=== PATIENT | female | born 1950 | race Caucasian/White ===

== ENCOUNTER 2018-10-01 15:47 | Emergency (ER) | payer MEDICARE, SELFPAY ==
[2018-10-01 15:47] VITALS: PULSE 99; RESP 17; TEMP 36.7; O2SAT 95; BMI 40.0
--- NOTE | 2018-10-01 16:11 | ED.RN ---
PT GIVEN A COUPLE WARM BLANKET AND IS RESTING COMFORTABLY. CALL LIGHT IS IN REACH.
--- NOTE | 2018-10-01 16:12 | RAD_ITS ---
STUDY: X-RAY - RIGHT SHOULDER REASON FOR EXAM: Female, 67 years old. Right lateral shoulder pain 2 days after fall. TECHNIQUE: 3 view(s) of the shoulder on 4 films. COMPARISON: None. FINDINGS: Normal glenohumeral articulation. There is mild degenerative arthrosis of the acromioclavicular joint without inferior osseous spur formation. Normal acromion. Normal humeral head and visualized proximal humerus. The soft tissue structures are unremarkable. There is no demonstrated fracture. Normal visualized pulmonary apex. RAD/Shoulder min 2 Views IMPRESSION: No fracture of the right shoulder. Electronically Signed: Lukas French MD at 17:23 EST , Service support ,
--- NOTE | 2018-10-01 16:17 | ED.VISSUMM ---
- ER Visit Summary Date of Service: 10/01/18 Chief Complaint: Fall History of Present Illness: The patient is a 67 F who states that on Thursday (post trauma day 3) she tripped on her feet causing contusion to the anterior left knee and striking her right shoulder against a coffee table. Since that time she has been able to ambulate. She states she has a limp however. She notes pain at the AC joint right shoulder with painful range of motion. No head injury. No other injuries noted by patient. Physical Examination: Afebrile vital signs are stable Gen: Well-nourished well-developed Head: Normocephalic atraumatic Eyes: Perrl EOMI ENT: TMs clear no rhinorrhea moist mucous membranes Neck: Supple no lymphadenopathy no JVD nontender CVS: Regular rate rhythm no murmurs normal S1-S2 Respiratory: No distress clear to auscultation bilaterally chest nontender Abdomen: Soft nontender nondistended normal bowel sounds no masses Back: Nontender Extremity: Left knee shows contusion in the infrapatellar region. There is no effusion. Ligaments are stable. Right shoulder is tender to palpation at the AC joint and the subacromial space. She does have full range of motion though it is painful. Skin: Normal color no rash Neuro: alert orientated ?3 CN II-XII intact normal strength sensation Psych: Normal affect normal mood Test Results: Shoulder and knee films were obtained. Shoulder films were negative for fracture. Left knee films were read as nondisplaced fracture of the patella. Emergency Department Course and Treatment: Reexamination of the left knee the patient does not have any tenderness of the patella. It is inferior where she hurts. Prudence would suggest that we place her in a knee immobilizer and repeat x-rays in 10-14 days. I will write for a few [place] as the patient is tried Tylenol and Motrin without help. Impression: 1. Right shoulder sprain 2. Left knee contusion 3. Possible left patellar fracture This note was generated with [employer] dictation software. It may contain incorrect words, spelling, and punctuation that were not noted in review of the chart prior to signing ED Disposition - Plan for ED Patient: Disposition: Home or Assisted Living Chief Complaint: Fall Prescriptions: Hydrocodone Bitart/Apap 5-325 [[place] 5MG-325MG] 1 tab PO Q6H PRN PRN 3 Days #10 tab PRN Reason: Pain Referrals: Andrae Concepcion MD [STAFF PHYSICIAN] - (call to arrange follow up)
--- NOTE | 2018-10-01 16:20 | RAD_ITS ---
STUDY: X-RAY - LEFT KNEE REASON FOR EXAM: Female, 67 years old. Pain, recent fall TECHNIQUE: Four view(s) of the knee were obtained. COMPARISON: None. FINDINGS: The distal femur is unremarkable. There are small osteophytes on the tibial plateau. There is mild narrowing of the medial femorotibial compartment. Normal lateral femorotibial compartment. There is chondrocalcinosis in both femorotibial compartments. There is cortical disruption through the patella seen on the sunrise view. There is no fullness above the patella. There is minimal soft tissue swelling anteriorly. RAD/Knee 4 or More Views IMPRESSION: There is an acute fracture in the patella without displacement. There is anterior soft tissue swelling. There is no obvious joint effusion although the lateral view is suboptimal in positioning. There are mild degenerative changes scattered in the left knee. Electronically Signed: Liv Mooney MD at 17:28 EST Tel Direct: [phone], Service support ,
[2018-10-01 18:05] VITALS: BP 149/76; PULSE 83; RESP 14; O2SAT 99
--- OUTSIDE RECORDS SUMMARY | 2019-01-05 07:13 | XMS RPT_ITS ---
:1950 Author Organization OHIP Care Team Providers Name Role Phone MARCELA MORROW Attending Unavailable NANCY MADISON MD, JR. Primary Care Unavailable MEGHAN ROSADO., DR. CALIX Attending Unavailable NANCY MADISON MD, JR. Primary Care Unavailable NANCY MADISON MD, JR. Attending Unavailable NANCY MADISON MD, JR. Primary Care Unavailable ALDO GALAVIZ MD Attending Unavailable NANCY MADISON MD, JR. Primary Care Unavailable DR. GEORGE ESCOBAR DO Attending Unavailable NANCY MADISON MD, JR. Primary Care Unavailable MYRON KOENIG Attending Unavailable MARIA T REED Referring Unavailable MARIA T REED Admitting Unavailable MARIA T REED Attending Unavailable NANCY MADISON JR Referring Unavailable IAIN CLIFTON Referring Unavailable IAIN CLIFTON Referring Unavailable JOSH WILLIS Referring Unavailable MASCI, IAIN A Referring Unavailable KAYLA HENRY (RD) Attending Unavailable SCOUT BELL Referring Unavailable ARABELLA, SCOUT Judge Referring Unavailable JOSH WILLIS Attending Unavailable SCOUT BELL Referring Unavailable MASCI, IAIN A Referring Unavailable MASCI, IAIN A Referring Unavailable REED, MARIA T Zimmerman Attending Unavailable REED, MARIA T Zimmerman Referring Unavailable MASCI, IAIN A Referring Unavailable MASCI, IAIN A Referring Unavailable REED, MARIA T Zimmerman Referring Unavailable REED, MARIA T Zimmerman Referring Unavailable REED, MARIA T Zimmerman Referring Unavailable REED, MARIA T Zimmerman Referring Unavailable MIKAL, MARIA T Zimmerman Referring Unavailable MIKAL, MARIA T Zimmerman Attending Unavailable NANCY MADISNO JR Referring Unavailable MASCI, IAIN Jesus Referring Unavailable MASCI, IAIN A Referring Unavailable CETIN, JOSH Turner Referring Unavailable LAZARO, JOSH Turner Referring Unavailable VIDHYA MARS Attending Unavailable SCOUT BELL Referring Unavailable ETIENNE, IAIN Lee Referring Unavailable Fantasma Wright Attending Unavailable Nancy Madison Jr. Primary Care Unavailable PROBLEMS PROBLEMS DATE TYPE CONDITION / CODE ATTENDING STATUS SOURCE 10/21/2018 Active Unknown / NA Active [place] UNK(Unknown) [facility] [place] Repository 10/01/2018 Unknown S82.002A - Fantasma Wright Active [place] Unspecified fracture Community of left patella, Hospital initial encounter Repository for closed fracture / S82.002A(ICD-10) 07/08/2018 Active Obesity, unspecified MARIA T REED [facility] / E66.9(ICD-10) J [facility] [place] Repository 04/30/2018 Active Diaphragmatic hernia MARIA T REED Active [place] without obstruction J [facility] Main or gangrene / [place] K44.9(ICD-10) Repository 05/19/2018 Active Other acute MARIA T REED Active [place] postprocedural pain J [facility] Main / G89.18(ICD-10) [place] Repository 05/19/2018 Active Unspecified fall, MARIA T REED [facility] initial encounter / J [facility] W19.XXXA(ICD-10) [place] Repository 05/19/2018 Active Dizziness and MARIA T REED Active [place] giddiness / J [facility] Main R42(ICD-10) [place] Repository 02/04/2018 Active Vitamin D NA [facility] deficiency, [facility] Main unspecified / [place] E55.9(ICD-10) Repository 05/17/2018 Active Iron deficiency Active [place] 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) [place] / D50.0(ICD-10) Repository 05/17/2018 Active Encounter for other NA Active [place] preprocedural Clinic Main examination / [place] Z01.818(ICD-10) Repository 04/22/2018 Active Morbid (severe) MARIA T REED Active [place] obesity due to J Clinic Main excess calories / [place] E66.01(ICD-10) Repository 02/29/2016 Active Other megaloblastic NA Active [place] anemias, not Clinic Main elsewhere classified [place] / D53.1(ICD-10) Repository 02/29/2016 Active 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, Clinic Main unspecified / [place] K90.9(ICD-10) Repository PROCEDURES PROCEDURES No Procedure Records FoundRESULTS RESULTS EMERGENCY DEPARTMENT Observed: 10/01/2018 Status: F Source: [place] SUMMARY 10:39 PM [facility] REPOSITORY [facility] Medical Records Department [address] [place] [address] Emergency Department Summary 10/01/18 1617 MR#: [id number] Acct: [id number] Name: NOREEN INGRAM Rep #: [id number] : 1950 67 From: Fantasma Wright DO PCP: Nancy Madison Jr., MD Status: DEP ER - ER Visit Summary Date of Service: 10/01/18 Chief Complaint: Fall History of Present Illness: The patient is a 67 F who states that on Thursday (post trauma day 3) she tripped on her feet causing contusion to the anterior left knee and striking her right shoulder against a coffee table. Since that time she has been able to ambulate. She states she has a limp however. She notes pain at the AC joint right shoulder with painful range of motion. No head injury. No other injuries noted by patient. Physical Examination: Afebrile vital signs are stable Gen: Well-nourished well-developed Head: Normocephalic atraumatic Eyes: Perrl EOMI ENT: TMs clear no rhinorrhea moist mucous membranes Neck: Supple no lymphadenopathy no JVD nontender CVS: Regular rate rhythm no murmurs normal S1-S2 Respiratory: No distress clear to auscultation bilaterally chest nontender Abdomen: Soft nontender nondistended normal bowel sounds no masses Back: Nontender Extremity: Left knee shows contusion in the infrapatellar region. There is no effusion. Ligaments are stable. Right shoulder is tender to palpation at the AC joint and the subacromial space. She does have full range of motion though it is painful. Skin: Normal color no rash Neuro: alert orientated 3 CN II-XII intact normal strength sensation Psych: Normal affect normal mood Test Results: Shoulder and knee films were obtained. Shoulder films were negative for fracture. Left knee films were read as nondisplaced fracture of the patella. Emergency Department Course and Treatment: Reexamination of the left knee the patient does not have any tenderness of the patella. It is inferior where she hurts. Prudence would suggest that we place her in a knee immobilizer and repeat x-rays in 10-14 days. I will write for a few Moclips as the patient is tried Tylenol and Motrin without help. Impression: 1. Right shoulder sprain 2. Left knee contusion 3. Possible left patellar fracture This note was generated with Harir dictation software. It may contain incorrect words, spelling, and punctuation that were not noted in review of the chart prior to signing ED Disposition - Plan for ED Patient: Disposition: Home or Assisted Living Chief Complaint: Fall Prescriptions: Hydrocodone Bitart/Apap 5-325 [Moclips 5MG-325MG] 1 tab PO Q6H PRN PRN 3 Days #10 tab PRN Reason: Pain Referrals: Andrae Concepcion MD [STAFF PHYSICIAN] - (call to arrange follow up) What to do if you have Problems For any increased pain, shortness of breath, bleeding, nausea or vomiting, chest pain, or any unexpected problems, contact your Primary Care Provider. Call [facility] ([phone]) or report to the closest Emergency Room. Call 911 if necessary. 10/01/18 [id number] <Electronically signed by Fantasma Wright DO> Date Fantasma Wright DO Cosigner Signature (If Indicated): Date CC: Nancy Madison Jr., MD SHOULDER MIN 2 VIEWS Observed: 10/01/2018 Status: F Source: [place] 4:12 PM [facility] REPOSITORY [facility] Imaging Services [address] [place] [address] Shoulder min 2 Views MR#: [id number] Acct: [id number] Name: NOREEN INGRAM Rep #: [id number] : 1950 F 67 From: Moe French MD PCP: Nancy Madison Jr., MD Status: REG ER Study: Shoulder min 2 Views Date of Exam: 10/01/18 Exam# [id number] Ordering Dr: Fantasma Wright DO STUDY: X-RAY - RIGHT SHOULDER REASON FOR EXAM: Female, 67 years old. Right lateral shoulder pain 2 days after fall. TECHNIQUE: 3 view(s) of the shoulder on 4 films. COMPARISON: None. FINDINGS: Normal glenohumeral articulation. There is mild degenerative arthrosis of the acromioclavicular joint without inferior osseous spur formation. Normal acromion. Normal humeral head and visualized proximal humerus. The soft tissue structures are unremarkable. There is no demonstrated fracture. Normal visualized pulmonary apex. RAD/Shoulder min 2 Views IMPRESSION: No fracture of the right shoulder. Electronically Signed: Lukas French MD at 17:23 EST , Service support , CC: Nancy Madison Jr., MD; Fantasma Wright DO Janitorial Services Supervisor: Signed KNEE 4 OR MORE Observed: 10/01/2018 Status: F Source: [place] VIEWS 4:12 PM [facility] HOSPITAL REPOSITORY [facility] Imaging Services [address] [place] [address] Knee 4 or More Views MR#: [id number] Acct: [id number] Name: NOREEN INGRAM Rep #: [id number] : 1950 F 67 From: Liv Mooney MD PCP: Nancy Madison Jr., MD Status: REG ER Study: Knee 4 or More Views Date of Exam: 10/01/18 Exam# [id number] Ordering Dr: Fantasma Wright DO STUDY: X-RAY - LEFT KNEE REASON FOR EXAM: Female, 67 years old. Pain, recent fall TECHNIQUE: Four view(s) of the knee were obtained. COMPARISON: None. FINDINGS: The distal femur is unremarkable. There are small osteophytes on the tibial plateau. There is mild narrowing of the medial femorotibial compartment. Normal lateral femorotibial compartment. There is chondrocalcinosis in both femorotibial compartments. There is cortical disruption through the patella seen on the sunrise view. There is no fullness above the patella. There is minimal soft tissue swelling anteriorly. RAD/Knee 4 or More Views IMPRESSION: There is an acute fracture in the patella without displacement. There is anterior soft tissue swelling. There is no obvious joint effusion although the lateral view is suboptimal in positioning. There are mild degenerative changes scattered in the left knee. Electronically Signed: Liv Mooney MD at 17:28 EST Tel Direct: [phone], Service support , CC: Nancy Madison Jr., MD; Fantasma Wright DO Janitorial Services Supervisor: Signed CBC Collected: 07/26/2018 Status: F Source: [facility] 2:28 PM [facility] EMERGENCY DEPARTMENT REPOSITORY TYPE CODE TESTS RESULT OUT OF REFERENCE UNITS RANGE LAB WBC(LOINC) 4.60-10.80 10 3/mcL WBC 5.90 LAB RBCCT(LOINC 4.20-5.40 10 6/mcL ) Low RBC 3.55 LAB HGB(LOINC) 12.0-16.0 G/dL Hgb 12.5 LAB HCT(LOINC) 37.0-47.0 % Low Hct 36.5 LAB MCV(LOINC) 80.0-94.0 fL High MCV 102.8 LAB MCH(LOINC) 27.0-31.2 pg High MCH 35.2 LAB MCHC(LOINC) 33.0-37.0 G/dL MCHC 34.2 LAB RDW(LOINC) 11.5-14.5 % RDW 12.7 LAB PLT(LOINC) 130-400 10 3/mcL Platelet 256 LAB MPV(LOINC) 7.4-10.4 fL Low MPV 7.3 Performed By: #### CBC, ADIFF, ANEU #### [place] [id number] #### BMP, TROP, GFR #### [address] [address] .AUTO DIFF Collected: 07/26/2018 Status: F Source: [facility] 2:28 PM [facility] REPOSITORY TYPE CODE TESTS RESULT OUT OF REFERENCE UNITS RANGE LAB NICOLAS(LOINC) 37.0-80.0 % Neutrophil % 71.5 LAB LYM(LOINC) 10.0-50.0 % Lymphocyte % 15.6 LAB MON(LOINC) 1.7-13.0 % Monocyte % 8.8 LAB EO(LOINC) 0.0-7.0 % Eosinophil % 3.3 LAB BAS(LOINC) 0.0-2.5 % Basophil % 0.8 LAB ABLYM(LOIN 0.77-3.85 10 3/mcL C) Lymphocyte, 0.90 Absolute LAB LEANNE(LOINC 0.15-1.00 10 3/mcL ) Monocyte, 0.50 Absolute LAB AEOS(LOINC 0.00-0.40 10 3/mcL ) Eosinophil, 0.20 Absolute LAB ABAS(LOINC 0.00-0.19 10 3/mcL ) Basophil, 0.00 Absolute Performed By: #### CBC, ADIFF, ANEU #### [address] [address] #### BMP, TROP, GFR #### [address] [address] .NEUABS Collected: 07/26/2018 Status: F Source: [facility] 2:28 [facility] REPOSITORY TYPE CODE TESTS RESULT OUT OF REFERENCE UNITS RANGE LAB ANEU(LOINC) 2.85-6.16 10 3/mcL Neutrophil, 4.20 Absolute Performed By: #### CBC, ADIFF, ANEU #### [address] [address] #### BMP, TROP, GFR #### [place] [address] BMP Collected: 07/26/2018 Status: F Source: [facility] 2:28 [facility] REPOSITORY TYPE CODE TESTS RESULT OUT OF REFERENCE UNITS RANGE LAB GLU(LOINC) 80-115 mg/dL Glucose Level 97 LAB NA(LOINC) 136-145 mmol/L Sodium Level 142 LAB K(LOINC) 3.5-5.1 mmol/L Potassium Level 3.5 LAB CL(LOINC) 98-107 mmol/L Chloride High 108 LAB CO2(LOINC) 23-31 mmol/L CO2 23 LAB EBAL(LOINC mEq/L ) Electrolyte Balance 11.0 LAB BUN(LOINC) 7-18 mg/dL BUN High 20 LAB CRE(LOINC) 0.55-1.02 mg/dL Creatinine Lvl (s) 1.00 LAB BC(LOINC) 7-27 ratio BUN/Creatinine 20 Ratio LAB CA(LOINC) 8.4-10.2 mg/dL Calcium Lvl 9.2 Performed By: #### CBC, ADIFF, ANEU #### [address] [address] #### BMP, TROP, GFR #### [place] [address] TROP Collected: 07/26/2018 Status: F Source: [facility] 2:28 [facility] REPOSITORY TYPE CODE TESTS RESULT OUT OF REFERENCE UNITS RANGE LAB TROP(LOINC) 0.000-0.040 ng/mL Troponin <0.020 Result Comment: Troponin I reference range: 0.00-0.040 ng/mL Negative and non-diagnostic. >0.040 ng/mL Consistent with cardiac damage, increased clinical risk and possibility of myocardial infarction. Serial measurements, a rise & fall in test results, clinical history, appropriate symptoms and/or ECG changes may help assess possibility of IN. *Other non-acute coronary syndrome conditions such as CHF, myocarditis, pulmonary emboli, sepsis and cardiac surgery could result in myocardial damage and increased troponin levels. Performed By: #### DANTE TEMPLETON, ANEU #### [place] [id number] [place], [place] [address] #### BMP, TROP, GFR #### [place] [address] .GFR Collected: 07/26/2018 Status: F Source: [facility] 2:28 PM [facility] REPOSITORY TYPE CODE TESTS RESULT OUT OF REFERENCE UNITS RANGE LAB GFRAA(LOINC ml/min/1.73 ) sqm GFR 67 [place] Result Comment: GFR Population mean for , Non- Americans Ages 20-29 = 116 mL/min/1.73 sq.m. Ages 30-39 = 107 mL/min/1.73 sq.m. Ages 40-49 = 99 mL/min/1.73 sq.m. Ages 50-59 = 93 mL/min/1.73 sq.m. Ages 60-69 = 85 mL/min/1.73 sq.m. Ages 70+ = 75 mL/min/1.73 sq.m. Chronic Kidney Disease: Less than 60 mL/min/1.73 square meters End Stage Renal Disease: Less than 15 mL/min/1.73 square meters LAB GFRNO(LOINC) ml/min/1.73sqm GFR Non- 55 Result Comment: GFR Population mean for , Non- Americans Ages 20-29 = 116 mL/min/1.73 sq.m. Ages 30-39 = 107 mL/min/1.73 sq.m. Ages 40-49 = 99 mL/min/1.73 sq.m. Ages 50-59 = 93 mL/min/1.73 sq.m. Ages 60-69 = 85 mL/min/1.73 sq.m. Ages 70+ = 75 mL/min/1.73 sq.m. Chronic Kidney Disease: Less than 60 mL/min/1.73 square meters End Stage Renal Disease: Less than 15 mL/min/1.73 square meters Performed By: #### JARETH, ADSANDOR, ANEU #### [place] [id number] [place], [place] [address] #### BMP, TROP, GFR #### [facility] [address] [place] [address] TSH Collected: 07/26/2018 Status: F Source: [facility] 2:28 PM [facility] REPOSITORY TYPE CODE TESTS RESULT OUT OF RANGE REFERENCE UNITS LAB TSH(LOINC) 0.36-3.74 mcIU/mL TSH 1.76 Performed By: #### TSH #### [address] [address] PROGRESS Observed: 07/08/2018 Status: COMPLETED Source: [place] 11:13 AM [facility] REPOSITORY HNO ID: [id number] Author: Maria T Reed Service: (none) Author Type: Physician Type: Progress Notes Filed: 07/08/2018 1:22 PM Note Text: Patient returns s/p lap paraesophageal hernia repair and looks and feels great and is having no major issues. I'll see her back in one hear with her upper gi. CNOV Observed: 07/08/2018 Status: COMPLETED Source: [place] 11:00 AM [facility] REPOSITORY Office Visit (RAY) NOREEN INGRAM ([id number]) 1950 F [facility] Date Time Provider Department 07/08/18 11:00 AM MARIA T REED During your visit today, we recorded the following information about you: Annamaria Costa Ms 07/08/2018 1:22 PM Signed General Surgery Clinic Note Interval History: Ms. Ingram is a 67 yo F here today for a postoperative check after a Type 3 paraesophageal hernia repair on 05/19/[address] Maria T Reed. The repair involved an anterior gastropexy, no julee fundoplication due to her BMI of 38. Upper GI afterward showed no leak. She reports that she has been doing very well, no nausea/vomiting, no heartburn, no fevers or chills. Complaining of LUQ pain where the anterior gastropexy was done that goes up to 6/10 for which she takes tylenol. Also says that her usual diarrhea has been getting worse since the surgery, she has 3-4 reasonably sized watery or runny BM's per day. No hematochezia. Physical Exam: [facility] 08/26/2017 General: awake, alert in no acute distress CV: regular rate, normal S1 and S2, no murmurs rubs or gallops Respiratory: clear to auscultation bilaterally Abdomen: nondistended, soft, mildly tender without guarding in the epigastrium. 4 lap sites healing well, no other masses. Extremities: no cyanosis or clubbing Assessment/Plan: Ms. Ingram is doing well postoperatively. Her pain is within normal limits. She can follow-up with Dr. Reed in 1 year for another upper GI scan. She can also start eating solid foods and go back to her usual levels of activity. Annamaria Costa, MS4 10:54 AM 07/08/18 Maria T Reed MD 07/08/2018 1:22 PM Signed Patient returns s/p lap paraesophageal hernia repair and looks and feels great and is having no major issues. I'll see her back in one hear with her upper gi. Referring Provider: MARIA T REED [[id number]] Allergies As of Date: 07/08/2018 Noted Allergy Reaction MORPHINE 11/19/2015 14 - Other: See Comments Comments: Severe hypotension Date Reviewed: 07/01/2018 Reviewed by: Mackenzie Mosqueda (Ale) ALE Mcgill - Fully Assessed Primary Visit Diagnosis:Paraesophageal hernia [K44.9] Other Visit Diagnosis:Obesity, Class II, BMI 35-39.9 [E66.9] Prescriptions as of 07/08/2018 Sig: DOCUSATE SODIUM 100 MG CAPSULE Take 1 capsule by mouth twice* VITAMIN B-12 INJECTION by INJECTION(UNSPECIFIED PARE* CHOLECALCIFEROL (VITAMIN D3) * Take 1 capsule by mouth once * LEVOTHYROXINE 75 MCG TABLET Take 75 mcg by mouth daily be* FUROSEMIDE 20 MG TABLET Take 20 mg by mouth once antonietta* POTASSIUM CHLORIDE ER 10 MEQ * Take 10 mEq by mouth twice da* CLONAZEPAM 1 MG TABLET Take 1 tablet by mouth three * FLUTICASONE 100 MCG-SALMETERO* Inhale 1 Puff as instructed t* PAROXETINE 10 MG TABLET Take 1 tablet by mouth once d* OMEPRAZOLE 20 MG CAPSULE,RADHA* Take 20 mg by mouth once antonietta* MECLIZINE 25 MG TABLET Take 25 mg by mouth every 6 h* ALBUTEROL 90 MCG/ACTUATION AE* Inhale 1-2 Puffs as instructe* Problem List As Of Date 07/08/2018 Noted Resolved Anemia [D64.9] More... Shortness of breath [R06.02] INVALID FOR* More... KAY (iron deficiency anemia) [D50.9] INVALID FOR* Iron malabsorption [K90.9] INVALID FOR* Megaloblastic anemia due to vitamin B12 deficie*INVALID FOR* Paraesophageal hernia [K44.9] INVALID FOR* Mild persistent asthma without complication [J4*INVALID FOR* Hypothyroidism [E03.9] INVALID FOR* Vitamin D deficiency [E55.9] INVALID FOR* Obesity, Class III, BMI >= 40 [E66.01] INVALID FOR* Hiatal hernia [K44.9] INVALID FOR* Obesity, Class II, BMI 35-39.9 [E66.9] INVALID FOR* Encounter Status:Closed by MARIA T REED MD on 07/08/18 HISTORY PHYSICAL Observed: 07/08/2018 Status: COMPLETED Source: [place] 10:52 AM [facility] [place] REPOSITORY O ID: [id number] Author: Annamaria Costa Ms Service: (none) Author Type: (none) Type: HANDP Filed: 07/08/2018 1:22 PM Note Text: General Surgery Clinic Note Interval History: Ms. Ingram is a 67 yo F here today for a postoperative check after a Type 3 paraesophageal hernia repair on 05/19/[address] Maria T Reed. The repair involved an anterior gastropexy, no julee fundoplication due to her BMI of 38. Upper GI afterward showed no leak. She reports that she has been doing very well, no nausea/vomiting, no heartburn, no fevers or chills. Complaining of LUQ pain where the anterior gastropexy was done that goes up to 6/10 for which she takes tylenol. Also says that her usual diarrhea has been getting worse since the surgery, she has 3-4 reasonably sized watery or runny BM's per day. No hematochezia. Physical Exam: [facility] 08/26/2017 General: awake, alert in no acute distress CV: regular rate, normal S1 and S2, no murmurs rubs or gallops Respiratory: clear to auscultation bilaterally Abdomen: nondistended, soft, mildly tender without guarding in the epigastrium. 4 lap sites healing well, no other masses. Extremities: no cyanosis or clubbing Assessment/Plan: Ms. Ingram is doing well postoperatively. Her pain is within normal limits. She can follow-up with Dr. Reed in 1 year for another upper GI scan. She can also start eating solid foods and go back to her usual levels of activity. Annamaria Costa, MS4 10:54 AM 07/08/18 LIPID Collected: 07/02/2018 Status: F Source: [place] 1:27 PM [facility] EMERGENCY DEPARTMENT REPOSITORY TYPE CODE TESTS RESULT OUT OF REFERENCE UNITS RANGE LAB CHOL(LOINC 0-200 mg/dL ) Cholesterol 167 Result Comment: Cholesterol Reference Interval: Less than 200 Desirable 200-239 Borderline high risk 240 and above High risk LAB TRIG(LOINC) 0-150 mg/dL Triglycerides 88 Result Comment: Triglyceride Reference Interval: Less than 150 Normal 150-199 Borderline high risk 200-499 High risk 500 or higher Very high risk LAB HD(LOINC) 40-60 mg/dL HDL Cholesterol 48 LAB LDL(LOINC) 0-130 mg/dL LDL Cholesterol 101 Performed By: #### LIPID, TSH #### [place] [address] TSH Collected: 07/02/2018 Status: F Source: [place] 1:27 PM [facility] EMERGENCY DEPARTMENT REPOSITORY TYPE CODE TESTS RESULT OUT OF RANGE REFERENCE UNITS LAB TSH(LOINC) 0.36-3.74 mcIU/mL TSH 1.82 Performed By: #### LIPID, TSH #### [place] [address] XR SHOULDER MINIMUM 2 Observed: 06/26/2018 Status: F Source: [place] VIEWS RIGHT 5:01 PM [facility] EMERGENCY DEPARTMENT REPOSITORY ORIGINAL XR SHOULDER MINIMUM 2 VIEWS RIGHT CLINICAL STATEMENT: pain/fall one month ago COMPARISON: None FINDINGS: No fracture or dislocation is identified. The included thoracic structures are normal. The acromioclavicular joint is normal. IMPRESSION: No acute fracture or dislocation. I have personally reviewed the images of this examination and agree with the resident's findings and interpretation. Interpreted By: Tommy Rivera DO Preliminary Report By: Francesca Borges MD Electronically Signed By: Tommy Rivera DO Dictated Date: 06/26/2018 5:14:20 PM Prelim Date: 06/26/2018 5:14:56 PM Sign Date: 06/26/2018 5:35:11 PM CNDS Observed: 05/23/2018 Status: COMPLETED Source: [place] 9:09 AM [facility] REPOSITORY O ID: [id number] Author: Jesica Stevenson MD Service: General Surgery Author Type: Resident Type: Discharge Summaries Filed: 05/24/2018 5:49 AM Note Text: DISCHARGE SUMMARY PATIENT NAME: Noreen Ingram ADMISSION DATE: 05/19/2018 DISCHARGE DATE: 05/23/2018 ATTENDING PHYSICIAN: Maria T Reed REASON FOR HOSPITALIZATION: paraesophageal hernia repair OPERATIONS DURING HOSPITALIZATION: Laparoscopic paraesophageal hernia repair and gastropexy PROCEDURES DURING HOSPITALIZATION: general anesthesia, endotracheal intubation, UGI HOSPITAL COURSE: 66 year old female with morbid obesity Body mass index is 40.03 kg/m?.?(previous BMI 51), HTN, hypothyroidism, asthma and a large type 3 paraesophageal hernia who underwent laparoscopic para esophageal hernia repair and gastropexy, tolerated the procedure well and was transferred to [facility] afterwards. On POD1 underwent UGI which showed no leak. Patient was started on CLD and advanced as tolerated. Once pain was controlled and was tolerating diet was deemed fit for discharge LABS AND PROCEDURES PENDING AT DISCHARGE: No pending results. CONSULTING TEAMS DURING HOSPITALIZATION: None PATIENT CONDITION AT DISCHARGE: Stable DISCHARGE DISPOSITION: Home/Self Care BP 135/64 Pulse 86 Temp 36.8 ?C (98.2 ?F) (Oral) Resp 20 Ht 160 cm (5' 3) Wt 103.5 kg (228 lb 2.8 oz) LMP 08/26/2017 SpO2 92% BMI 40.42 kg/m? ? GENERAL/NEURO: Awake, Alert, no distress CARDIORESP: Non-labored breathing on RA, hemodynamically stable ABDOMEN: Soft, obese, minimally tender, non distended INCISIONS: clean/dry/intact INFORMATION PROVIDED TO PATIENT: A copy of discharge instructions was given to the patient DISCHARGE MEDICATION: Current Discharge Medication List START taking these medications oxyCODONE IR (ROXICODONE) 5 mg Take 5 mg by mouth every 8 hours as needed for Pain. Earliest Fill Date: 05/23/18 Qty: 30 tablet Refills: 0 Associated Diagnoses:Postoperative pain simethicone, chewable (MYLICON) 80 mg Take 80 mg by mouth every 6 hours as needed. Qty: 40 tablet Refills: 1 metoclopramide HCl (REGLAN) 10 mg Take 10 mg by mouth before meals and at bedtime. Qty: 120 tablet Refills: 1 docusate sodium (COLACE) 100 mg Take 100 mg by mouth twice daily. CONTINUE these medications which have CHANGED acetaminophen (TYLENOL) 1,000 mg Take 1,000 mg by mouth every 8 hours as needed. CONTINUE these medications which have NOT CHANGED cyanocobalamin, vitamin B-12, (VITAMIN B-12 INJECTION) by INJECTION(UNSPECIFIED PARENTERAL ROUTES) route q 4 WEEKS. cholecalciferol (Vitamin D3) (VITAMIN D3) 50,000 Units Take 50,000 Units by mouth once each week. Qty: 12 capsule Refills: 1 levothyroxine (SYNTHROID) 75 mcg Take 75 mcg by mouth daily before breakfast. furosemide (LASIX) 20 mg Take 20 mg by mouth once daily. Associated Diagnoses:Anemia due to other cause potassium chloride (K-TAB) 10 mEq Take 10 mEq by mouth twice daily. Associated Diagnoses:Anemia due to other cause clonazePAM (KlonoPIN) 1 mg Take 1 mg by mouth three times daily as needed (anxiety). Qty: 30 tablet Refills: 3 fluticasone-salmeterol (ADVAIR) 1 Puff Inhale 1 Puff as instructed twice daily. Qty: 3 Inhaler Refills: 3 PARoxetine (PAXIL) 10 mg Take 10 mg by mouth once daily. Qty: 30 tablet Refills: 3 omeprazole (PriLOSEC) 20 mg Take 20 mg by mouth once daily. Associated Diagnoses:Anemia meclizine (ANTIVERT) 25 mg Take 25 mg by mouth every 6 hours as needed. Associated Diagnoses:Anemia albuterol (PROVENTIL) 1-2 Puffs Inhale 1-2 Puffs as instructed four times daily as needed (Wheezing and shortness of Breath). Qty: 1 Inhaler Refills: 0 FUTURE APPOINTMENTS: Appointments for Next 60 Days Date Time Provider Location Dept Phone 06/03/2018 2:00 PM [facility] [phone] 07/01/2018 2:00 PM [facility] [phone] Reed in 2-3 weeks SIGNATURE: Jesica Stevenson MD PATIENT NAME: Noreen Ingram DATE: May 23, 2018 TIME: 9:09 AM PAGER/CONTACT #: [phone] PROGRESS Observed: 05/23/2018 Status: COMPLETED Source: [place] 6:39 AM [facility] [place] REPOSITORY HNO ID: [id number] Author: Jesica (Ernestina) MD Elva Service: General Surgery Author Type: Resident Type: Progress Notes Filed: 05/23/2018 7:09 AM Note Text: SURGERY INPATIENT PROGRESS NOTE Patient Name: Noreen Ingram Assessment and Plan: 66 year old female with morbid obesity Body mass index is 40.03 kg/m?. (previous BMI 51), HTN, hypothyroidism, asthma and a large type 3 paraesophageal hernia now POD 4 s/p laparoscopic para esophageal hernia repair and gastropexy Neuro/Pain: continue current regimen Cardioresp: Incentive spirometry. Duonebs q4h. Reinforce spirometry + aggressive BPH FEN/GI: HLIVF. Replete Lytes. Diet: GIS. +ROBF. Reglan+Simethicone Renal: Strict I/Os. Prophylaxis: IPCs, lovenox Dispo: RNF. Possible DC home today Plan discussed with Surgery Staff Jesica Stevenson [place] PGY1 [place]. [phone] Subjective: No issues Tolerating GIS +BM and flatus Pain well managed Physical Exam: BP 135/64 Pulse 86 Temp 36.8 ?C (98.2 ?F) (Oral) Resp 20 Ht 160 cm (5' 3) Wt 103.5 kg (228 lb 2.8 oz) LMP 08/26/2017 SpO2 92% BMI 40.42 kg/m? GENERAL/NEURO: Awake, Alert, no distress CARDIORESP: Non-labored breathing on RA, hemodynamically stable ABDOMEN: Soft, obese, minimally tender, non distended INCISIONS: clean/dry/intact Labs: CBC, BMP, MG, PHOS Recent Labs 05/22/18 2250 05/21/18 2338 05/20/18 2352 WBC 5.77 5.53 5.62 HB 10.7* 9.9* 10.4* HCT 33.1* 31.0* 32.4* PLT 189 143* 137* NA 142 143 142 K 4.2 4.1 3.7 CHLOR 102 106* 103 CO2 31* 30 26 BUN 7 9 11 CREAT 1.00* 0.93 0.95 GLUC 83 79 89 CA 9.0 8.5 8.7 Liver Function, Amylase, AND Lipase Recent Labs 05/17/18 1010 01/26/18 1422 02/28/16 1133 TPROT 7.4 7.8 6.5 6.8 ALB 4.3 4.6 3.6 ALT 21 17 13 AST 26 21 25 ALKPHOS 35 43 46 TBILI 0.4 0.5 0.2 Coags Recent Labs 05/17/18 1010 11/16/15 0534 APTT 25.5 Unable to assay. Clotted specimen. INR 1.1 Unable to assay. Clotted specimen. Intake and Output: Date 05/22/18699 - 05/23/1865805/23/18699 - 05/24/18 0659 Shift 2729-6124 7802-6738 6031-2549 24 Hour Total 5336-2535 6485-0438 9519-3259 24 Hour Total I N T A K E PO 720 720 PO 720 720 Shift Total 720 720 O U T P U T Urine 500 626 235 3360 Void (ml) 500 990 640 4278 Emesis 0 0 Emesis (ml) 0 0 # of BMs Stool Incontinence 1 x 1 x Number of BMs 3 x 1 x 0 x 4 x Shift Total 500 618 082 2695 Weight (kg) 103.5 103.5 103.5 103.5 103.5 103.5 103.5 103.5 Current Medications: Current hospital medications: oxyCODONE IR 5-10 mg tab(s) (ROXICODONE) 5-10 mg ORAL q 4 H PRN ipratropium-albuterol 3 mL nebulizer solution (DUONEB) 3 mL INHALATION q 4 H PRN metoclopramide HCl 10 mg tab(s) (REGLAN) 10 mg ORAL AC and HS 0.9% NaCl 2-10 mL 2-10 mL INTRAVENOUS q 12 H simethicone, chewable 80 mg tab(s) (MYLICON) 80 mg ORAL PC and HS clonazePAM 1 mg tab(s) (KlonoPIN) 1 mg ORAL TID PRN PARoxetine 10 mg tab(s) (PAXIL) 10 mg ORAL DAILY levothyroxine 75 mcg tab(s) (SYNTHROID) 75 mcg ORAL DAILY (6 AM) ipratropium-albuterol 3 mL nebulizer solution (DUONEB) 3 mL INHALATION q 4 H while awake ondansetron (PF) 4 mg injection (ZOFRAN) 4 mg INTRAVENOUS q 6 H docusate sodium 100 mg cap(s) (COLACE) 100 mg ORAL BID magnesium hydroxide 400 mg/5 mL 30 mL (MOM) 30 mL ORAL BID acetaminophen 1,000 mg tab(s) (TYLENOL) 1,000 mg ORAL q 6 HR gabapentin 300 mg cap(s) (NEURONTIN) 300 mg ORAL q 12 H enoxaparin 40 mg injection (LOVENOX) 40 mg SUBCUTANEOUS DAILY pantoprazole DR 20 mg tab(s) (PROTONIX) 20 mg ORAL DAILY (6 AM) *A review of daily goals, interventions, and plan of care with the multidisciplinary team and patient has been conducted. The patient?s concerns have been addressed and he/she agrees to proceed with today?s plan of care. CBC AND DIFFERENTIAL Collected: 05/22/2018 Status: F Source: [place] 10:50 PM [facility] REPOSITORY TYPE CODE TESTS RESULT OUT OF REFERENCE UNITS RANGE LAB WBC 3.70-11.00 k/uL WBC 5.77 LAB RBC 3.90-5.20 m/uL Low RBC 3.01 LAB HGB 11.5-15.5 g/dL Low Hemoglobin 10.7 LAB HCT 36.0-46.0 % Low Hematocrit 33.1 LAB MCV 80.0-100.0 fL MCV High 110.0 LAB MCH 26.0-34.0 pG MCH High 35.5 LAB MCHC 30.5-36.0 g/dL MCHC 32.3 LAB RDWCV 11.5-15.0 % RDW-CV 13.2 LAB PLTCT 150-400 k/uL Platelet Count 189 LAB MPV 9.0-12.7 fL MPV 9.7 LAB ANEUT % Neut% 67.6 LAB AANEUT 1.45-7.50 k/uL Abs Neut 3.88 LAB ALYMP % Lymph% 17.7 LAB AALYMP 1.00-4.00 k/uL Abs Lymph 1.02 LAB AMONO % Clinton% 10.2 LAB AAMONO <0.87 k/uL Abs Clinton 0.59 LAB AEOS % Eosin% 4.0 LAB AAEOS <0.46 k/uL Abs Eosin 0.23 LAB ABASO % Baso% 0.5 LAB AABASO <0.11 k/uL Abs Baso 0.03 LAB AUNRBC 0 /100 WBC NRBCs 0.0 LAB ABNRBC <0.01 k/uL Absolute nRBC <0.01 LAB DTYP DTYPE Auto Diff Performed By: #### CBCDIF, BMP #### [facility] [address] [place], [place] [address] BASIC METABOLIC PANL Collected: 05/22/2018 Status: F Source: [place] 10:50 PM [facility] REPOSITORY TYPE CODE TESTS RESULT OUT OF REFERENCE UNITS RANGE LAB GLU 74-99 mg/dL Glucose 83 Result Comment: The [place] [employer] (ADA) provides guidance for cutoff values for fasting glucose and random glucose. The ADA defines fasting as no caloric intake for at least 8 hours. Fas ting plasma glucose results between 100 to 125 mg/dL indicate increased risk for diabetes (prediabetes). Fasting plasma glucose results greater than or equal to 126 mg/dL meet the criteria for diagnosis of diabetes. In the absence of unequivocal hyperglycemia, results should be confirmed by repeat testing. In a patient with classic symptoms of hyperglycemia or hyperglycemic crisis, random plasma glucose results greater than or equal to 200 mg/dL meet the criteria for diagnosis of diabetes. Reference: Standards of Medical Care in Diabetes 2016, [place] [employer]. Diabetes Care. 2016.39(Suppl 1). LAB BUN 7-21 mg/dL BUN 7 LAB CRET 0.58-0.96 mg/dL Creatinine High 1.00 LAB NA 136-144 mmol/L Sodium 142 LAB K 3.7-5.1 mmol/L Potassium 4.2 LAB CL 97-105 mmol/L Chloride 102 LAB CO2 22-30 mmol/L CO2 High 31 LAB AGAP 9-18 mmol/L Anion Gap 9 LAB CA 8.5-10.2 mg/dL Calcium, Total 9.0 LAB GFRAA eGFR- Amer. >60 LAB GFRNAA . eGFR-All Other Races 55 Result Comment: eGFR (Estimated GFR) Units of measure: mL/min/1.73 meters squared eGFR is derived from the reexpressed MDRD Study equation using the following parameters: serum creatinine, age, gender and race. The creatinine assay has been calibrated to be traceable to IDMS. An eGFR <60 mL/min/1.73m2 for >3 months is consistent with chronic kidney disease. Refer to KDOQI guidelines for clinical interpretation. In patients with unstable renal function, e.g. those with acute kidney injury, the eGFR may not accurately reflect actual GFR. Performed By: #### CBCDIF, BMP #### [facility] [address] [place] [address] THERAPY NT Observed: 05/22/2018 Status: COMPLETED Source: [place] 12:49 PM [facility] [place] REPOSITORY HNO ID: [id number] Author: Ila (Pt) MYKE Cali Service: Physical Therapy Author Type: Physical Therapist Type: Therapy (PT/OT/Speech/Resp) Filed: 05/22/2018 12:52 PM Note Text: Physical Therapy Evaluation SERVICE DATE: 05/22/2018 SERVICE TIME: 1152 to 1215 ROOM: [place] [address] Recommended Discharge Disposition: Home Anticipated Discharge Needs: Supervision at Home Supervision at Home due to: Other: See Comment (patient has a history of falls due to veritigo) Recommended Discharge Equipment: Wheeled Walker PT Recommendations to Nursing: Ambulate with device;With assist of 1 person Device: Wheeled Walker PT 6 Clicks Score: 23 Precautions/Activity Restrictions: Abdominal;Fall Risk ASSESSMENT : Patient presents s/p hernia repair. The patient has a history of falls due to a known history of vertigo. The patient is at her baseline with mobility and does not require physical assist. Recommend supervision as needed upon discharging home from her sister. No skilled PT needs at this time. May benefit from a rolling walker for longer distances. Patient Disposition at Start of Session: Supine in Bed Patient Disposition at End of Session: OOB in Chair;Call Thompson in Reach Tolerated Full Session Physical Therapy Problem List: Pain;Safety Deficits;Balance Impaired Patient /Caregiver Goals: Go Home Goals for Plan of Care: Transfer supine to/from sit with: Modified Independent Transfer sit to/from stand with: Modified Independent Ambulate with: Modified Independent Distance: 100 Device: Wheeled Walker PLAN: Treatment Frequency (times per week): Discontinue Therapy Services Reasons Therapy Services Discontinued: No skilled needs Plan of Care developed with: Patient TREATMENT INTERVENTIONS: Therapy Diagnosis: Reduced mobility-other Interventions Provided: Evaluation;Therapeutic Activity (36015) $ Evaluation-Low (59075) Billed Units: 1 unit Therapeutic Activity (17308) Treatment Minutes: 8 1 unit Skilled Intervention(s): Instructed patient in log roll technique Instruction in sit to and from stand technique with proper hand placement and body positioning at edge of bed/chair Patient educated on PT role during and post acute stay Patient educated on post op protocol/precautions Patient encouraged to sit up for meals and to ambulate with nursing as able Discussed discharge planning Safety for in bed and out of bed activity Total Timed Code Treatment Minutes: 8 Total Treatment Time (minutes): 23 FUNCTIONAL G CODE: PT 6 Clicks Score: 23 (05/22/18 1152) Mobility: Walking and Moving Around Current Status (G8978): CI (05/22/18 1152) Mobility: Walking and Moving Around Goal Status (G8979): CI (05/22/18 1152) Mobility: Walking and Moving Around Discharge Status (G8980): CI (05/22/18 1152) Based on clinical assessment and the score on the 6 Clicks Functional Assessment Tool, the G code and corresponding severity modifiers are documented above. SUBJECTIVE: Current Hospital Course: POD 3 s/p laparoscopic para esophageal hernia repair and gastropexy Reason for Physical Therapy Consult : safety assessment Relevant Past Medical History: hernia Patient Report: I can walk, I just need to take my time. Home Environment Patient Lives With: Self/Alone Assistance Available: maritime pilot (sister lives nearby) Entry To Home: Stairs;With Rail Number Of Stairs Into Home: 6 Number Of Stairs To Bed/Bath: 0 Equipment Owned: (none) Prior Functional Level: Within Functional Limits (works service parts coordinator. independent. drives) OBJECTIVE: CURRENT FUNCTIONAL STATUS: Current Functional Mobility Assist Level Additional Information Rolling Supervision Supine to Sit Verbal Cues Only Sit to Supine Scooting Sit to Stand Stand By Assistance Stand to Sit Stand By Assistance Bed to Chair Toilet/Commode Gait Stand By Assistance Gait Device: Wheeled Walker Gait Distance (feet): 100 Stairs Curb Step Car Transfer General Gait Deviations: Non-functional gait speed;Loss of Balance Balance: Static Standing;Dynamic Standing Static Standing Balance: Supervision Dynamic Standing Balance: Stand By Assistance Please see discipline specific clinical documentation flowsheet for complete details for this therapy evaluation/treatment. SIGNATURE: Ila Cali PT, DPT PATIENT NAME: Noreen Ingram DATE: May 22, 2018 TIME: 12:49 PM PROGRESS Observed: 05/22/2018 Status: COMPLETED Source: [place] 8:59 AM [facility] REPOSITORY HNO ID: [id number] Author: Renetta Zheng Service: General Surgery Author Type: Resident Type: Progress Notes Filed: 05/22/2018 9:00 AM Note Text: SURGERY INPATIENT PROGRESS NOTE Patient Name: Noreen Ingram Assessment and Plan: 66 year old female with morbid obesity Body mass index is 40.03 kg/m?. (previous BMI 51), HTN, hypothyroidism, asthma and a large type 3 paraesophageal hernia now POD 3 s/p laparoscopic para esophageal hernia repair and gastropexy Neuro/Pain: continue current regimen with QUALITY ASSURANCE SUPERVISOR BODY, Tylenol Cardioresp: Incentive spirometry. Duonebs q4h. Reinforce spirometry + aggressive BPH FEN/GI: IVF. Replete Lytes. Diet: Continue clears. +ROBF. Reglan+Simethicone Renal: Strict I/Os. Prophylaxis: IPCs, lovenox Dispo: RNF Plan discussed with Surgery Staff Renetta Zheng MD General Surgery Pager: [phone] May 22, 2018 8:59 AM Subjective: No issues Tolerating full liquids +BM and flatus Pain well managed Physical Exam: BP 114/58 Pulse 70 Temp 36.8 ?C (98.3 ?F) (Oral) Resp 18 Ht 160 cm (5' 3) Wt 103.5 kg (228 lb 2.8 oz) LMP 08/26/2017 SpO2 93% BMI 40.42 kg/m? GENERAL/NEURO: Awake, Alert, no distress CARDIORESP: Non-labored breathing on RA, hemodynamically stable ABDOMEN: Soft, obese, minimally tender, non distended INCISIONS: clean/dry/intact Labs: CBC, BMP, MG, PHOS Recent Labs 05/21/18 2338 05/20/18 2352 05/20/18 0147 WBC 5.53 5.62 9.55 HB 9.9* 10.4* 11.1* HCT 31.0* 32.4* 34.0* PLT 143* 137* 199 NA 143 142 141 K 4.1 3.7 4.3 CHLOR 106* 103 104 CO2 30 26 27 BUN 9 11 16 CREAT 0.93 0.95 0.94 GLUC 79 89 114* CA 8.5 8.7 8.6 Liver Function, Amylase, AND Lipase Recent Labs 05/17/18 1010 01/26/18 1422 02/28/16 1133 TPROT 7.4 7.8 6.5 6.8 ALB 4.3 4.6 3.6 ALT 21 17 13 AST 26 21 25 ALKPHOS 35 43 46 TBILI 0.4 0.5 0.2 Coags Recent Labs 05/17/18 1010 11/16/15 0534 APTT 25.5 Unable to assay. Clotted specimen. INR 1.1 Unable to assay. Clotted specimen. Intake and Output: Date 05/21/18699 - 05/22/18 0659 05/22/18699 - 05/23/18 0659 Shift 0090-8299 2430-9559 1102-6026 24 Hour Total 0193-2510 1565-9943 1089-2474 24 Hour Total I N T A K E PO 600 360 960 360 360 PO 600 360 960 360 360 IV 886 9528 982 5786 LR 886 5259 079 0922 Shift Total 1486 1718 630 6490 360 360 O U T P U T Urine 301 969 172 8146 200 200 Void (ml) 300 714 358 4003 200 200 Urine Not Saved 1 1 # of BMs Stool Incontinence 1 x 1 x 1 x 1 x Number of BMs 1 x 0 x 1 x 1 x 1 x Shift Total 301 392 632 8954 200 200 Weight (kg) 103.5 103.5 103.5 103.5 103.5 103.5 103.5 103.5 Current Medications: Current hospital medications: fentaNYL 50 mcg/mL 25 mcg injection (SUBLIMAZE) 25 mcg INTRAVENOUS q 2 H PRN ipratropium-albuterol 3 mL nebulizer solution (DUONEB) 3 mL INHALATION q 4 H PRN metoclopramide HCl 10 mg tab(s) (REGLAN) 10 mg ORAL AC and HS 0.9% NaCl 2-10 mL 2-10 mL INTRAVENOUS q 12 H simethicone, chewable 80 mg tab(s) (MYLICON) 80 mg ORAL PC and HS clonazePAM 1 mg tab(s) (KlonoPIN) 1 mg ORAL TID PRN PARoxetine 10 mg tab(s) (PAXIL) 10 mg ORAL DAILY levothyroxine 75 mcg tab(s) (SYNTHROID) 75 mcg ORAL DAILY (6 AM) ipratropium-albuterol 3 mL nebulizer solution (DUONEB) 3 mL INHALATION q 4 H while awake ondansetron (PF) 4 mg injection (ZOFRAN) 4 mg INTRAVENOUS q 6 H docusate sodium 100 mg cap(s) (COLACE) 100 mg ORAL BID magnesium hydroxide 400 mg/5 mL 30 mL (MOM) 30 mL ORAL BID acetaminophen 1,000 mg tab(s) (TYLENOL) 1,000 mg ORAL q 6 HR gabapentin 300 mg cap(s) (NEURONTIN) 300 mg ORAL q 12 H enoxaparin 40 mg injection (LOVENOX) 40 mg SUBCUTANEOUS DAILY pantoprazole DR 20 mg tab(s) (PROTONIX) 20 mg ORAL DAILY (6 AM) *A review of daily goals, interventions, and plan of care with the multidisciplinary team and patient has been conducted. The patient?s concerns have been addressed and he/she agrees to proceed with today?s plan of care. CBC AND DIFFERENTIAL Collected: 05/21/2018 Status: F Source: [place] 11:38 PM [facility] REPOSITORY TYPE CODE TESTS RESULT OUT OF REFERENCE UNITS RANGE LAB WBC 3.70-11.00 k/uL WBC 5.53 LAB RBC 3.90-5.20 m/uL Low RBC 2.82 LAB HGB 11.5-15.5 g/dL Low Hemoglobin 9.9 LAB HCT 36.0-46.0 % Low Hematocrit 31.0 LAB MCV 80.0-100.0 fL MCV High 109.9 LAB MCH 26.0-34.0 pG MCH High 35.1 LAB MCHC 30.5-36.0 g/dL MCHC 31.9 LAB RDWCV 11.5-15.0 % RDW-CV 13.2 LAB PLTCT 150-400 k/uL Low Platelet Count 143 LAB MPV 9.0-12.7 fL MPV 11.2 LAB ANEUT % Neut% 64.4 LAB AANEUT 1.45-7.50 k/uL Abs Neut 3.54 LAB ALYMP % Lymph% 21.0 LAB AALYMP 1.00-4.00 k/uL Abs Lymph 1.16 LAB AMONO % Clinton% 10.8 LAB AAMONO <0.87 k/uL Abs Clinton 0.60 LAB AEOS % Eosin% 3.3 LAB AAEOS <0.46 k/uL Abs Eosin 0.18 LAB ABASO % Baso% 0.5 LAB AABASO <0.11 k/uL Abs Baso 0.03 LAB AUNRBC 0 /100 WBC NRBCs 0.0 LAB ABNRBC <0.01 k/uL Absolute nRBC <0.01 LAB DTYP DTYPE Auto Diff Performed By: #### CBCDIF, BMP #### [facility] [address] [place], [place] [address] BASIC METABOLIC PANL Collected: 05/21/2018 Status: F Source: [place] 11:38 PM [facility] REPOSITORY TYPE CODE TESTS RESULT OUT OF REFERENCE UNITS RANGE LAB GLU 74-99 mg/dL Glucose 79 Result Comment: The [place] [employer] (ADA) provides guidance for cutoff values for fasting glucose and random glucose. The ADA defines fasting as no caloric intake for at least 8 hours. Fas ting plasma glucose results between 100 to 125 mg/dL indicate increased risk for diabetes (prediabetes). Fasting plasma glucose results greater than or equal to 126 mg/dL meet the criteria for diagnosis of diabetes. In the absence of unequivocal hyperglycemia, results should be confirmed by repeat testing. In a patient with classic symptoms of hyperglycemia or hyperglycemic crisis, random plasma glucose results greater than or equal to 200 mg/dL meet the criteria for diagnosis of diabetes. Reference: Standards of Medical Care in Diabetes 2016, [place] [employer]. Diabetes Care. 2016.39(Suppl 1). LAB BUN 7-21 mg/dL BUN 9 LAB CRET 0.58-0.96 mg/dL Creatinine 0.93 LAB NA 136-144 mmol/L Sodium 143 LAB K 3.7-5.1 mmol/L Potassium 4.1 LAB CL 97-105 mmol/L Chloride High 106 LAB CO2 22-30 mmol/L CO2 30 LAB AGAP 9-18 mmol/L Low Anion Gap 7 LAB CA 8.5-10.2 mg/dL Calcium, Total 8.5 LAB GFRAA eGFR- Amer. >60 LAB GFRNAA . eGFR-All Other Races 60 Result Comment: eGFR (Estimated GFR) Units of measure: mL/min/1.73 meters squared eGFR is derived from the reexpressed MDRD Study equation using the following parameters: serum creatinine, age, gender and race. The creatinine assay has been calibrated to be traceable to IDMS. An eGFR <60 mL/min/1.73m2 for >3 months is consistent with chronic kidney disease. Refer to KDOQI guidelines for clinical interpretation. In patients with unstable renal function, e.g. those with acute kidney injury, the eGFR may not accurately reflect actual GFR. Performed By: #### CBCDIF, BMP #### [facility] [address] [id number] PROGRESS Observed: 05/21/2018 Status: COMPLETED Source: [place] 7:23 AM [facility] [place] REPOSITORY HNO ID: [id number] Author: Renetta Zheng Service: General Surgery Author Type: Resident Type: Progress Notes Filed: 05/21/2018 7:24 AM Note Text: SURGERY INPATIENT PROGRESS NOTE Patient Name: Noreen Ingram Assessment and Plan: 66 year old female with morbid obesity Body mass index is 40.03 kg/m?. (previous BMI 51), HTN, hypothyroidism, asthma and a large type 3 paraesophageal hernia now POD 2 s/p laparoscopic para esophageal hernia repair and gastropexy Neuro/Pain: continue current regimen with QUALITY ASSURANCE SUPERVISOR BODY, Tylenol Cardioresp: Incentive spirometry. Duonebs q4h. FEN/GI: IVF. Replete Lytes. Diet: Continue clears. Awaiting ROBF Zofran PRN Renal: Strict I/Os. Heme: no indication for transfusion ID: no need Prophylaxis: IPCs, lovenox Dispo: RNF Plan to be discussed with Surgery Staff Renetta Zheng MD General Surgery Pager: [phone] May 21, 2018 7:23 AM Subjective: Interval Events: AMET overnight for fall without LOC. +dizziness. No flatus or BM Physical Exam: BP 111/55 Pulse 63 Temp 36.6 ?C (97.9 ?F) (Oral) Resp 16 Ht 160 cm (5' 3) Wt 103.5 kg (228 lb 2.8 oz) LMP 08/26/2017 SpO2 96% BMI 40.42 kg/m? GENERAL/NEURO: Awake, Alert, no distress CARDIORESP: Non-labored breathing on RA, hemodynamically stable ABDOMEN: Soft, obese, minimally tender, non distended INCISIONS: clean/dry/intact Labs: CBC, BMP, MG, PHOS Recent Labs 05/20/18 2352 05/20/18 0147 05/17/18 1010 WBC 5.62 9.55 6.24 HB 10.4* 11.1* 13.3 HCT 32.4* 34.0* 40.8 PLT 137* 199 233 NA 142 141 143 K 3.7 4.3 4.2 CHLOR 103 104 108* CO2 26 27 23 BUN 11 16 21 CREAT 0.95 0.94 1.11* GLUC 89 114* 90 CA 8.7 8.6 9.6 Liver Function, Amylase, AND Lipase Recent Labs 05/17/18 1010 01/26/18 1422 02/28/16 1133 TPROT 7.4 7.8 6.5 6.8 ALB 4.3 4.6 3.6 ALT 21 17 13 AST 26 21 25 ALKPHOS 35 43 46 TBILI 0.4 0.5 0.2 Coags Recent Labs 05/17/18 1010 11/16/15 0534 APTT 25.5 Unable to assay. Clotted specimen. INR 1.1 Unable to assay. Clotted specimen. Intake and Output: Date 05/20/18699 - 05/21/18 0659 05/21/18699 - 05/22/18 0659 Shift 2737-2853 9388-6962 3588-5813 24 Hour Total 8819-3056 5135-5117 2870-0332 24 Hour Total I N T A K E PO 240 120 100 460 PO 240 120 100 460 IV 976 1066 1051 3093 LR 976 1066 1051 3093 Shift Total 1216 1186 1151 3553 O U T P U T Urine 400 107 770 4994 Void (ml) 400 731 419 3362 Emesis 0 0 0 0 Emesis (ml) 0 0 0 0 # of BMs Number of BMs 0 x 0 x 0 x 0 x Shift Total 400 238 601 4397 Weight (kg) 103.5 103.5 103.5 103.5 103.5 103.5 103.5 103.5 Current Medications: Current hospital medications: ipratropium-albuterol 3 mL nebulizer solution (DUONEB) 3 mL INHALATION q 4 H PRN potassium chloride 20 mEq oral powder (KLOR-CON) 20 mEq ORAL ONCE metoclopramide HCl 10 mg injection (REGLAN) 10 mg INTRAVENOUS AC and HS simethicone, chewable 80 mg tab(s) (MYLICON) 80 mg ORAL PC and HS clonazePAM 1 mg tab(s) (KlonoPIN) 1 mg ORAL TID PRN PARoxetine 10 mg tab(s) (PAXIL) 10 mg ORAL DAILY levothyroxine 75 mcg tab(s) (SYNTHROID) 75 mcg ORAL DAILY (6 AM) ipratropium-albuterol 3 mL nebulizer solution (DUONEB) 3 mL INHALATION q 4 H while awake ondansetron (PF) 4 mg injection (ZOFRAN) 4 mg INTRAVENOUS q 6 H lactated ringers infusion 125 mL/hr INTRAVENOUS CONTINUOUS docusate sodium 100 mg cap(s) (COLACE) 100 mg ORAL BID magnesium hydroxide 400 mg/5 mL 30 mL (MOM) 30 mL ORAL BID acetaminophen 1,000 mg tab(s) (TYLENOL) 1,000 mg ORAL q 6 HR gabapentin 300 mg cap(s) (NEURONTIN) 300 mg ORAL q 12 H enoxaparin 40 mg injection (LOVENOX) 40 mg SUBCUTANEOUS DAILY fentaNYL QUALITY ASSURANCE SUPERVISOR BODY 20 mcg/mL in NaCl 0.9% 100 mL INTRAVENOUS CONTINUOUS fentaNYL 20 mcg/mL QUALITY ASSURANCE SUPERVISOR BODY CLINICIAN DOSE 25-50 mcg 25-50 mcg INTRAVENOUS q [address] 20 mg tab(s) (PROTONIX) 20 mg ORAL DAILY (6 AM) *A review of daily goals, interventions, and plan of care with the multidisciplinary team and patient has been conducted. The patient?s concerns have been addressed and he/she agrees to proceed with today?s plan of care. CBC AND DIFFERENTIAL Collected: 05/20/2018 Status: F Source: [place] 11:52 PM [facility] REPOSITORY TYPE CODE TESTS RESULT OUT OF REFERENCE UNITS RANGE LAB WBC 3.70-11.00 k/uL WBC 5.62 LAB RBC 3.90-5.20 m/uL Low RBC 3.01 LAB HGB 11.5-15.5 g/dL Low Hemoglobin 10.4 LAB HCT 36.0-46.0 % Low Hematocrit 32.4 LAB MCV 80.0-100.0 fL MCV High 107.6 LAB MCH 26.0-34.0 pG MCH High 34.6 LAB MCHC 30.5-36.0 g/dL MCHC 32.1 LAB RDWCV 11.5-15.0 % RDW-CV 13.2 LAB PLTCT 150-400 k/uL Low Platelet Count 137 LAB MPV 9.0-12.7 fL MPV 11.2 LAB ANEUT % Neut% 69.5 LAB AANEUT 1.45-7.50 k/uL Abs Neut 3.90 LAB ALYMP % Lymph% 19.6 LAB AALYMP 1.00-4.00 k/uL Abs Lymph 1.10 LAB AMONO % Clinton% 9.3 LAB AAMONO <0.87 k/uL Abs Clinton 0.52 LAB AEOS % Eosin% 1.2 LAB AAEOS <0.46 k/uL Abs Eosin 0.07 LAB ABASO % Baso% 0.4 LAB AABASO <0.11 k/uL Abs Baso <0.03 LAB AUNRBC 0 /100 WBC NRBCs 0.0 LAB ABNRBC <0.01 k/uL Absolute nRBC <0.01 LAB DTYP DTYPE Auto Diff Performed By: #### CBCDIF, [facility] #### [facility] [address] [place], [place] [address] BASIC METABOLIC PANL Collected: 05/20/2018 Status: F Source: [place] 11:52 PM [facility] REPOSITORY TYPE CODE TESTS RESULT OUT OF REFERENCE UNITS RANGE LAB GLU 74-99 mg/dL Glucose 89 Result Comment: The [place] [employer] (ADA) provides guidance for cutoff values for fasting glucose and random glucose. The ADA defines fasting as no caloric intake for at least 8 hours. Fas ting plasma glucose results between 100 to 125 mg/dL indicate increased risk for diabetes (prediabetes). Fasting plasma glucose results greater than or equal to 126 mg/dL meet the criteria for diagnosis of diabetes. In the absence of unequivocal hyperglycemia, results should be confirmed by repeat testing. In a patient with classic symptoms of hyperglycemia or hyperglycemic crisis, random plasma glucose results greater than or equal to 200 mg/dL meet the criteria for diagnosis of diabetes. Reference: Standards of Medical Care in Diabetes 2016, [place] [employer]. Diabetes Care. 2016.39(Suppl 1). LAB BUN 7-21 mg/dL BUN 11 LAB CRET 0.58-0.96 mg/dL Creatinine 0.95 LAB NA 136-144 mmol/L Sodium 142 LAB K 3.7-5.1 mmol/L Potassium 3.7 LAB CL 97-105 mmol/L Chloride 103 LAB CO2 22-30 mmol/L CO2 26 LAB AGAP 9-18 mmol/L Anion Gap 13 LAB CA 8.5-10.2 mg/dL Calcium, Total 8.7 LAB GFRAA eGFR- Amer. >60 LAB GFRNAA . eGFR-All Other Races 58 Result Comment: eGFR (Estimated GFR) Units of measure: mL/min/1.73 meters squared eGFR is derived from the reexpressed MDRD Study equation using the following parameters: serum creatinine, age, gender and race. The creatinine assay has been calibrated to be traceable to IDMS. An eGFR <60 mL/min/1.73m2 for >3 months is consistent with chronic kidney disease. Refer to KDOQI guidelines for clinical interpretation. In patients with unstable renal function, e.g. those with acute kidney injury, the eGFR may not accurately reflect actual GFR. Performed By: #### CBCDIF, BMP #### [facility] [address] [id number] MEDICAL KIMMY Observed: 05/20/2018 Status: COMPLETED Source: [place] 6:50 PM [facility] [place] REPOSITORY HNO ID: [id number] Author: Anat Alvarado Service: Critical Care Author Type: Nurse Practitioner Type: Chg in Clinical Condition Filed: 05/20/2018 6:57 PM Note Text: MEDICAL EMERGENCY TEAM AMET Date of MET Page: May 20, 2018 Time of MET Page: 180 Time of LIP Arrival: 1805 Requesting Provider: H71 SUMMARY DIAGNOSIS, ASSESSMENT and RECOMMENDATIONS 67 yo female with PMHx HTN, hypothyroid, asthma, large type 3 paraesophageal hernia POD 1 lap para-esophageal hernia repair. AMET activated today for patient fall. Ms. Ingram was OOB in the bathroom getting off toilet, got dizzy and fell on her buttock. Never loss consciousness. States that this has happened before and when gets dizzy at home. States that she has vertigo. VS 116/53, 85, 98% on 2l. Denies buttock pain. Was helped back to bed. No further action necessary. PLAN, DISPOSITION and OUTCOME Responded to therapy, remains on current unit under care of: primary service Consider fluids, CBC PRIMARY REASON FOR CALL Other: fall PAST MEDICAL / SURGICAL HISTORY PAST MEDICAL HISTORY Diagnosis Date - Anemia - Arthritis rhuematoid - Hiatal hernia with gastroesophageal reflux disease and esophagitis 01/20/2017 - Hypertension - Morbid obesity (HCC) - Thyroid disease , PAST SURGICAL HISTORY Procedure Laterality Date - APPENDECTOMY HX - CHOLECYSTECTOMY HX - COLONOSCOP W/ OR W/O BRSH SPEC 08/03/12 [facility] - COLONOSCOPY W/BX 11/19/2015 - EGD W/O BRSH SPECIMEN W/BX 01/20/2017 - EGD W/O OR W/BRUSH/WASH 11/29/12 [facility] - EGD W/O OR W/BRUSH/WASH 03/10/13 EGD AIRWAY HISTORY Not available MEDICATIONS Current Facility-Administered Medications: metoclopramide HCl 10 mg injection (REGLAN) 10 mg INTRAVENOUS AC and HS simethicone, chewable 80 mg tab(s) (MYLICON) 80 mg ORAL PC and HS clonazePAM 1 mg tab(s) (KlonoPIN) 1 mg ORAL TID PRN PARoxetine 10 mg tab(s) (PAXIL) 10 mg ORAL DAILY levothyroxine 75 mcg tab(s) (SYNTHROID) 75 mcg ORAL DAILY (6 AM) ipratropium-albuterol 3 mL nebulizer solution (DUONEB) 3 mL INHALATION q 4 H while awake ondansetron (PF) 4 mg injection (ZOFRAN) 4 mg INTRAVENOUS q 6 H lactated ringers infusion 125 mL/hr INTRAVENOUS CONTINUOUS docusate sodium 100 mg cap(s) (COLACE) 100 mg ORAL BID magnesium hydroxide 400 mg/5 mL 30 mL (MOM) 30 mL ORAL BID acetaminophen 1,000 mg tab(s) (TYLENOL) 1,000 mg ORAL q 6 HR gabapentin 300 mg cap(s) (NEURONTIN) 300 mg ORAL q 12 H enoxaparin 40 mg injection (LOVENOX) 40 mg SUBCUTANEOUS DAILY fentaNYL QUALITY ASSURANCE SUPERVISOR BODY 20 mcg/mL in NaCl 0.9% 100 mL INTRAVENOUS CONTINUOUS fentaNYL 20 mcg/mL QUALITY ASSURANCE SUPERVISOR BODY CLINICIAN DOSE 25-50 mcg 25-50 mcg INTRAVENOUS q [address] 20 mg tab(s) (PROTONIX) 20 mg ORAL DAILY (6 AM) ALLERGIES ALLERGIES Allergen Reactions - Morphine Other: See Comments Severe hypotension PERTINENT PHYSICAL EXAM and INITIAL ASSESSMENT (For vital signs prior and during MET call, see nursing documentation) Pertinent Vital Signs at Time of MET Call: see nursing doc Appearance: Alert and No distress Airway Examination: Neck Movement FROM (full range of motion) Airway Patent: Yes Breathing Evaluation: nonlabored Breathing Adequate: Yes Circulation Evaluation: Skin WD, Pulses Regular and Heart Sounds S1S2 Circulation Adequate: Yes Neurologic Evaluation: GCS Evaluation: 4. Spontaneous, 5: Oriented 6: Obeys Motor commands Is the Level of Consciousness at Baseline: Yes Additional Physical Exam Findings: Head/Eyes: PERRLA and EOM's intact Skin: warm and dry Lungs: clear Abdomen: soft Extremities: normal exam of the extremities INTERVENTIONS none Intervention Response: Improved Primary Team Aware/Notified: Yes Level 2 SIGNATURE: Anat Alvarado APRN.CNP PATIENT NAME: Noreen Ingram DATE: May 20, 2018 TIME: 6:50 PM PAGER: [phone] HISTORY PHYSICAL Observed: 05/20/2018 Status: COMPLETED Source: [place] 6:24 PM [facility] [place] REPOSITORY O ID: [id number] Author: Narayan Rossi Service: General Surgery Author Type: Resident Type: HANDP Filed: 05/20/2018 7:25 PM Note Text: TRAUMA HANDP [facility] ARRIVAL DATE: May 20, 2018 ARRIVAL TIME: 6pm CATEGORY: Level 3 INJURY DATE: May 20, 2018 INJURY TIME: 6pm Subjective This is a 67 year old White female POD#1 s/p Laparoscopic para-esophageal hernia repair, gastropexy, EGD. GCS at Scene was 15. AMET was called for unwitnessed fall. Pt denies loss of consciousness. Pt denies hitting her head. Pt states that she gets dizzy once in a while, which is what happened this time. She was in the bathroom, started feeling dizzy/lightheaded and fell on her buttock. Pt reports no pain from the fall. Has some surgical abdominal pain that has not gotten worse since the fall. Pt denies SOB, CP, dizziness, pain in her legs, vision change, palpitations. HPI/CHIEF COMPLAINT: OTHER MECHANISMS: fall from standing Objective PRIMARY SURVEY AIRWAY: Patent BREATHING: Breath sounds equal CIRCULATION: PT/DP +, Radials + DISABILITY: Eye: 4=Spontaneous Verbal: 5=Oriented and Converses Motor: 6=Obeys Commands Total GCS: 15=4 Resp Rate: 10 to 29=4 Syst BP: > than 89=4 SECONDARY SURVEY VITALS: BP 116/53, HR 85, RR 18 NEURO: GCS 15 HEENT: Head: No lacerations or abrasions, no bony step offs, midface stable to palpation NECK: No midline pain with palpation RESPIRATORY: No crepitus CARDIOVASCULAR: Heart rate regular ABDOMEN: non-distended, appropriat post-surgical tenderness, incisions c/d/i PELVIC/PERINEAL: Pelvis stable to palpation BACK/SPINE: Thoracolumbar spinal column non-tender EXTREMITIES: Arm/Shoulder left normal and right normal, Leg/Knee left normal and right normal RADIOLOGICAL/OTHER TEST DATA: PRIOR TO ARRIVAL: No Loss of Consciousness IMAGES No additional imaging was done LABS: Recent Labs 05/20/18 0147 WBC 9.55 HB 11.1* HCT 34.0* PLT 199 NA 141 K 4.3 CHLOR 104 CO2 27 BUN 16 CREAT 0.94 GLUC 114* CA 8.6 Assessment/Plan DIAGNOSES: Pt has a history of pre-surgical history of vertigo. No LOC. No head injuries. No dizziness at time of examination. Feels fine. Vitals wnl. Overall recovering appropriatly from surgery. Plan - f/u CBC - changed activity order SIGNATURE: Narayan Rossi MD PATIENT NAME: Noreen Ingarm DATE: May 20, 2018 TIME: 6:25 PM PAGER/CONTACT #: [id number] Observed: 05/20/2018 Status: F Source: [place] 6:10 PM [facility] REPOSITORY NAME : NOREEN INGRAM PID : [id number] : 1950 Gender : Female Race : ORD : Procedure Date : May 20 2018 18:10:57 Edit Date : Jun 01 2018 20:28:11 Diagnosis:NORMAL SINUS RHYTHM INFERIOR MYOCARDIAL INFARCTION , AGE UNDETERMINED ABNORMAL ECG Confirmed by MARVIN PALAFOX M.D. ([id number]) on 06/01/2018 8:28:10 PM Ventricular Rate : 83 BPM Atrial Rate : 83 BPM P-R Interval : 140 ms QRS Duration : 96 ms Q-T Interval : 390 ms QTC Calculation(Bezet) : 458 ms P Golden : 25 degrees R Golden : -11 degrees T Golden : 16 degrees Test Reason : AMET Location : 74 : H71 19 Overread By : MARVIN PALAFOX M.D. Edited By : MARVIN PALAFOX M.D. Referred By : , Acquired by : PALMA DOS SANTOS NURSING PROG Observed: 05/20/2018 Status: COMPLETED Source: [place] 6:00 PM [facility] REPOSITORY HNO ID: [id number] Author: Jolanta (Rn) MARICEL Box Service: (none) Author Type: Registered Nurse Type: Nursing Progress Note Filed: 05/20/2018 6:25 PM Note Text: Post Fall Assessment Noreen Ingram [id number] Witnessed: No How did fall occur: getting off of toilet Location: Bathroom Contributing factors: c/o dizziness Brief factual description: patient was standing up in bathroom and started to become dizzy. Fell onto her bottom in bathroom. 116/53, 85, 98% on 2l. Patient has history of vertigo (*Document vital signs, neuro checks, blood sugars in the appropriate flow sheet.) Initial Physical Assessment Injury: No Patient hit head: No Immediate actions taken: Assisted back to bed / chair Name of LIP notified: MD Servando Rossi Notify family as appropriate: none notified Post fall interventions: Fall Huddle Conducted, Bed Alarm On and Patient/Family Education This note was completed by:Jolanta Box RN XR UPPER GI SINGLE Observed: 05/20/2018 Status: F Source: [place] CONTRAST 9:41 AM [facility] REPOSITORY * * *Final Report* * * DATE OF EXAM: May 20 2018 9:41AM HGX [id number] - XR UPPER GI SINGLE CONTRAST / PROCEDURE REASON: Esophageal reflux * * * * Physician Interpretation * * * * UPPER GI SERIES HISTORY: Paraesophageal hernia repair with gastropexy. COMPARISON: 02/26/2017. TECHNIQUE: The patient ingested water-soluble contrast followed by thin barium under intermittent fluoroscopic monitoring. Contrast: ORAL: 50 ml of OMNIPAQUE 350 ORAL: 50 ml of EZPAQUE Fluoroscopy radiation summary: Fluoroscopy time: 1:24 (min:sec). Air kerma: 78.6 mGy. RESULT: Paper Gluing Operator: Surgical clips in the left upper quadrant. Linear scarring/atelectasis in the right midlung. Multilevel thoracolumbar spine degenerative arthropathy. Luminal contrast transits to the proximal duodenum without leak or obstruction. Staff Physician: Fantasma Davies DO was present for the critical portions of the procedure and was immediately available throughout the remainder of the procedure. IMPRESSION: NO LEAK. Janitorial Services Supervisor: PSCB Transcribe Date/Time: May 20 2018 9:51A Dictated by : AZRA SEVILLA MD This examination was interpreted and the report reviewed and electronically signed by: FANTASMA DAVIES DO on May 20 2018 10:32AM EST [id number] PROGRESS Observed: 05/20/2018 Status: COMPLETED Source: [place] 9:33 AM [facility] REPOSITORY HNO ID: [id number] Author: Jenny NicholsonRt) Sedrick Edwards Service: Radiology Author Type: Wealth Management Advisor Type: Progress Notes Filed: 05/20/2018 9:33 AM Note Text: Radiology Service Progress Note PATIENT NAME: Noreen Ingram DATE OF SERVICE: May 20, 2018 TIME: 9:33 AM PATIENT IDENTITY VERIFICATION COMPLETED USING TWO (2) METHODS: Patient confirmed name verbally and Date of . PATIENT GENDER DATA: Female. status: : No status: NO. PATIENT RELEVANT IMPLANT DATA REVIEWED: Not Applicable RADIOLOGY DEPARTMENT: General X-ray: Exam(s) Completed: GI/ Procedure(s): Esophogram with water soluable and barium contrasts PERIPHERAL IV DATA: Not applicable SIGNED BY: RT Justin May 20, 2018 9:33 AM PROGRESS Observed: 05/20/2018 Status: COMPLETED Source: [place] 8:28 AM [facility] REPOSITORY HNO ID: [id number] Author: Jesica Stevenson MD Service: General Surgery Author Type: Resident Type: Progress Notes Filed: 05/20/2018 8:32 AM Note Text: SURGERY INPATIENT PROGRESS NOTE Patient Name: Noreen Ingram Assessment and Plan: 66 year old female with morbid obesity Body mass index is 40.03 kg/m?. (previous BMI 51), HTN, hypothyroidism, asthma and a large type 3 paraesophageal hernia now POD 1 s/p laparoscopic para esophageal hernia repair and gastropexy UGI Neuro/Pain: continue current regimen Cardioresp: Incentive spirometry FEN/GI: IVF. Replete Lytes. Diet: NPO until UGI resulted. Zofran PRN Renal: Strict I/Os. Heme: no indication for transfusion ID: no need Prophylaxis: IPCs, lovenox Dispo: RNF Plan to be discussed with Surgery Staff Jesica Stevenson [place] PGY1 [place]. [phone] Subjective: Interval Events: no acute events overnight. Pain partially controlled, not using QUALITY ASSURANCE SUPERVISOR BODY much Physical Exam: BP 121/50 Pulse 60 Temp 36.8 ?C (98.2 ?F) (Oral) Resp 16 Ht 160 cm (5' 3) Wt 103.5 kg (228 lb 2.8 oz) LMP 08/26/2017 SpO2 98% BMI 40.42 kg/m? GENERAL/NEURO: Awake, Alert, no distress CARDIORESP: Non-labored breathing on RA, hemodynamically stable ABDOMEN: Soft, minimally tender, non distended INCISIONS: clean/dry/intact Labs: CBC, BMP, MG, PHOS Recent Labs 05/20/18 0147 05/17/18 1010 05/17/18 0952 01/26/18 1422 WBC 9.55 6.24 6.41 5.96 HB 11.1* 13.3 13.2 14.1 HCT 34.0* 40.8 40.9 43.6 PLT 199 233 242 261 NA 141 143 -- 144 K 4.3 4.2 -- 4.1 CHLOR 104 108* -- 104 CO2 27 23 -- 23 BUN 16 21 -- 19 CREAT 0.94 1.11* -- 1.07* GLUC 114* 90 -- 85 CA 8.6 9.6 -- 9.2 Liver Function, Amylase, AND Lipase Recent Labs 05/17/18 1010 01/26/18 1422 02/28/16 1133 TPROT 7.4 7.8 6.5 6.8 ALB 4.3 4.6 3.6 ALT 21 17 13 AST 26 21 25 ALKPHOS 35 43 46 TBILI 0.4 0.5 0.2 Coags Recent Labs 05/17/18 1010 11/16/15 0534 APTT 25.5 Unable to assay. Clotted specimen. INR 1.1 Unable to assay. Clotted specimen. Intake and Output: Date 05/19/18699 - 05/20/18 0659 05/20/18699 - 05/21/18 0659 Shift 3819-6518 9901-5755 9533-2907 24 Hour Total 3654-2720 4288-6978 6855-0912 24 Hour Total I N T A K E PO 0 0 PO 0 0 IV 2200 4972 037 0306 Cefazolin IV 50 50 100 LR 400 8136 891 7681 OR Crystalloid intake (mL) 1800 1800 Shift Total 2200 8529 209 2832 O U T P U T Urine 55 486 432 7055 Void (ml) 576 661 5548 OR Urine Output 55 55 Blood 10 10 Estimated Blood loss 10 10 Shift Total 65 856 206 1422 Weight (kg) 103.5 103.5 103.5 103.5 103.5 103.5 103.5 Current Medications: Current hospital medications: clonazePAM 1 mg tab(s) (KlonoPIN) 1 mg ORAL TID PRN PARoxetine 10 mg tab(s) (PAXIL) 10 mg ORAL DAILY levothyroxine 75 mcg tab(s) (SYNTHROID) 75 mcg ORAL DAILY (6 AM) ipratropium-albuterol 3 mL nebulizer solution (DUONEB) 3 mL INHALATION q 4 H while awake ondansetron (PF) 4 mg injection (ZOFRAN) 4 mg INTRAVENOUS q 6 H lactated ringers infusion 125 mL/hr INTRAVENOUS CONTINUOUS docusate sodium 100 mg cap(s) (COLACE) 100 mg ORAL BID magnesium hydroxide 400 mg/5 mL 30 mL (MOM) 30 mL ORAL BID acetaminophen 1,000 mg tab(s) (TYLENOL) 1,000 mg ORAL q 6 HR gabapentin 300 mg cap(s) (NEURONTIN) 300 mg ORAL q 12 H enoxaparin 40 mg injection (LOVENOX) 40 mg SUBCUTANEOUS DAILY prochlorperazine 5 mg injection (COMPAZINE) 5 mg INTRAVENOUS q 4 H PRN fentaNYL QUALITY ASSURANCE SUPERVISOR BODY 20 mcg/mL in NaCl 0.9% 100 mL INTRAVENOUS CONTINUOUS fentaNYL 20 mcg/mL QUALITY ASSURANCE SUPERVISOR BODY CLINICIAN DOSE 25-50 mcg 25-50 mcg INTRAVENOUS q [address] 20 mg tab(s) (PROTONIX) 20 mg ORAL DAILY (6 AM) *A review of daily goals, interventions, and plan of care with the multidisciplinary team and patient has been conducted. The patient?s concerns have been addressed and he/she agrees to proceed with today?s plan of care. CBC AND DIFFERENTIAL Collected: 05/20/2018 Status: F Source: [place] 1:47 AM [facility] REPOSITORY TYPE CODE TESTS RESULT OUT OF REFERENCE UNITS RANGE LAB WBC 3.70-11.00 k/uL WBC 9.55 LAB RBC 3.90-5.20 m/uL Low RBC 3.15 LAB HGB 11.5-15.5 g/dL Low Hemoglobin 11.1 LAB HCT 36.0-46.0 % Low Hematocrit 34.0 LAB MCV 80.0-100.0 fL MCV High 107.9 LAB MCH 26.0-34.0 pG MCH High 35.2 LAB MCHC 30.5-36.0 g/dL MCHC 32.6 LAB RDWCV 11.5-15.0 % RDW-CV 13.2 LAB PLTCT 150-400 k/uL Platelet Count 199 LAB MPV 9.0-12.7 fL MPV 9.9 LAB ANEUT % Neut% 87.9 LAB AANEUT 1.45-7.50 k/uL Abs Neut High 8.39 LAB ALYMP % Lymph% 4.5 LAB AALYMP 1.00-4.00 k/uL Low Abs Lymph 0.43 LAB AMONO % Clinton% 7.5 LAB AAMONO <0.87 k/uL Abs Clinton 0.72 LAB AEOS % Eosin% 0.0 LAB AAEOS <0.46 k/uL Abs Eosin <0.03 LAB ABASO % Baso% 0.1 LAB AABASO <0.11 k/uL Abs Baso <0.03 LAB AUNRBC 0 /100 WBC NRBCs 0.0 LAB ABNRBC <0.01 k/uL Absolute nRBC <0.01 LAB DTYP DTYPE Auto Diff Performed By: #### CBCDIF, BMP #### [facility] [address] [place], [place] [address] BASIC METABOLIC PANL Collected: 05/20/2018 Status: F Source: [place] 1:47 AM [facility] REPOSITORY TYPE CODE TESTS RESULT OUT OF REFERENCE UNITS RANGE LAB GLU 74-99 mg/dL High Glucose 114 Result Comment: The [place] Diabetes [employer] (ADA) provides guidance for cutoff values for fasting glucose and random glucose. The ADA defines fasting as no caloric intake for at least 8 hours. Fas ting plasma glucose results between 100 to 125 mg/dL indicate increased risk for diabetes (prediabetes). Fasting plasma glucose results greater than or equal to 126 mg/dL meet the criteria for diagnosis of diabetes. In the absence of unequivocal hyperglycemia, results should be confirmed by repeat testing. In a patient with classic symptoms of hyperglycemia or hyperglycemic crisis, random plasma glucose results greater than or equal to 200 mg/dL meet the criteria for diagnosis of diabetes. Reference: Standards of Medical Care in Diabetes 2016, [place] [employer]. Diabetes Care. 2016.39(Suppl 1). LAB BUN 7-21 mg/dL BUN 16 LAB CRET 0.58-0.96 mg/dL Creatinine 0.94 LAB NA 136-144 mmol/L Sodium 141 LAB K 3.7-5.1 mmol/L Potassium 4.3 LAB CL 97-105 mmol/L Chloride 104 LAB CO2 22-30 mmol/L CO2 27 LAB AGAP 9-18 mmol/L Anion Gap 10 LAB CA 8.5-10.2 mg/dL Calcium, Total 8.6 LAB GFRAA eGFR- Amer. >60 LAB GFRNAA . eGFR-All Other Races 59 Result Comment: eGFR (Estimated GFR) Units of measure: mL/min/1.73 meters squared eGFR is derived from the reexpressed MDRD Study equation using the following parameters: serum creatinine, age, gender and race. The creatinine assay has been calibrated to be traceable to IDMS. An eGFR <60 mL/min/1.73m2 for >3 months is consistent with chronic kidney disease. Refer to KDOQI guidelines for clinical interpretation. In patients with unstable renal function, e.g. those with acute kidney injury, the eGFR may not accurately reflect actual GFR. Performed By: #### CBCDIF, BMP #### [facility] [address] [place] [id number] ANES POST Observed: 05/19/2018 Status: COMPLETED Source: [place] 5:55 PM [facility] REPOSITORY HNO ID: [id number] Author: Brian Jacobs Service: (none) Author Type: Anesthesiologist Type: Anesthesia PostOp Filed: 05/20/2018 9:31 AM Note Text: POST ANESTHESIA EVALUATION NOTE SERVICE DATE: 05/19/2018 : 1950 Vitals: 05/19/183 05/19/18220305/20/1820005/20/18 0537 Temp: 36.6 ?C (97.9 ?F) 36.7 ?C (98.1 ?F) 37 ?C (98.6 ?F) 36.8 ?C (98.2 ?F) 05/19/18174205/19/18220305/20/18 02005/20/18 0537 BP: 124/55 111/52 111/55 121/50 05/19/18174205/19/18220305/20/18 02005/20/18 0537 Pulse: 78 83 63 60 05/20/1820005/20/18 0430 05/20/18 0537 05/20/18 0751 Resp: 18 18 16 16 05/19/18174205/19/18220305/20/1820005/20/18 0537 SpO2: 99% 99% 99% 98% Validated Vital Signs: Yes POST ANES STATUS: No apparent anesthetic complications. The patient is appropriately hydrated with stable respiratory and cardiovascular status. Patient has safe and adequate airway control. The patient has appropriate pain relief and no significant post operative nausea or vomiting. The patient has achieved baseline mental status. Further assessment by Anesthesia Service: None Other Remarks: SIGNATURE: Brian Jacobs MD PATIENT NAME: Noreen Ingram DATE: May 20, 2018 TIME: 9:30 AM PAGER/CONTACT #: [phone] NURSING PROG Observed: 05/19/2018 Status: COMPLETED Source: [place] 4:00 PM [facility] REPOSITORY O ID: [id number] Author: Jose (Rn) MARICEL Ledbetter Service: (none) Author Type: Registered Nurse Type: Nursing Progress Note Filed: 05/19/2018 5:45 PM Note Text: Nursing Progress Note Patient Name: Noreen Ingram Patient Location: H071 019/H071-19 Transfer Note: Patient transferred into room/unit H71:19 in stable condition. Actions taken: Skin check done with MARICEL Dixon. No signs of skin breakdown. No futher actions taken at this time. Will continue to monitor and check with patient. This note was completed by: Jose Ledbetter RN NURSING PROG Observed: 05/19/2018 Status: COMPLETED Source: [place] 12:36 PM [facility] REPOSITORY HNO ID: [id number] Author: Yoana NicholsonRn) MARICEL Garcia Service: (none) Author Type: Registered Nurse Type: Nursing Progress Note Filed: 05/19/2018 12:36 PM Note Text: Nursing Progress Note Patient Name: Noreen Ingram Patient Location: [place] [address] Report taken from Brenda Zepeda for lunch coverage. Will continue to monitor patient. This note was completed by: Yoana Garcia RN BRIEF OP NOT Observed: 05/19/2018 Status: COMPLETED Source: [place] 11:13 AM [facility] REPOSITORY HNO ID: [id number] Author: Wayne Cisneros Service: General Surgery Author Type: Resident Type: Brief Op Note Filed: 05/19/2018 11:15 AM Note Text: BRIEF OP NOTE LOG ID: [id number] Surgery/Procedure Date: 05/19/2018 Incision/Procedure Start Time: 9:11 AM Incision Close/Procedure End Time: 11:08 AM Surgeon(s)/Proceduralist(s) and Weight Reducing Technician(s): Surgeon(s) and Role: * Maria T Reed - Primary * Wayne Cisneros - Resident - Assisting Procedure(s): Procedure(s) and Anesthesia Type: * Laparoscopic para-esophageal hernia repair, gastropexy, EGD Anesthesia: General Findings: large para-esophageal hernia, no leak and no bleeding on EGD Estimated Blood Loss: 50 mls Specimens: * No specimens in log * Complications: None Wound Classification: Clean Contaminated Diagnosis: Pre-Op Diagnosis Codes: * Paraesophageal hernia [K44.9] Post-Op Diagnosis Codes: * Same as preoperative diagnosis SIGNATURE: Wayne Cisneros MD PATIENT NAME: Noreen Ingram DATE: May 19, 2018 TIME: 11:13 AM PAGER/CONTACT #: [id number] PT ED Observed: 05/19/2018 Status: COMPLETED Source: [place] 6:30 AM [facility] REPOSITORY HNO ID: [id number] Author: Lynda Reyes (Rn) MARICEL Iqbal Service: Nursing Author Type: Registered Nurse Type: Patient Education Filed: 05/19/2018 6:30 AM Note Text: PRE OP LEARNING ASSESSMENT PROCEDURE/SURGERY: SURGERY: pre op READINESS TO LEARN COGNITIVE ABILITY: Alert and oriented MOTIVATION TO LEARN: Eager FAMILY SUPPORT: High - Very involved in pt care PATIENT LEARNS BEST BY: Multiple Methods FACTORS AFFECTING LEARNING: None PHYSICAL LIMITATIONS AFFECTING LEARNING: None Electronically Signed By: Lynda Iqbal RN In Department: [facility] G0 OPERATIVE NO Observed: 05/19/2018 Status: COMPLETED Source: [place] 12:00 AM [facility] REPOSITORY HNO ID: [id number] Author: Maria T Reed Service: General Surgery Author Type: Physician Type: Operative Report Filed: 05/21/2018 3:21 PM Note Text: [place] [id number] [place] OPERATIVE REPORT NAME: NOREEN INGRAM [facility] #: [id number] DATE: 05/19/2018 AGE: 67 SURGEON 1: Maria T Reed M.D. SURGEON 2: CLASSIFYING MACHINE OPERATOR 1: Wayne Grewal M.D. CLASSIFYING MACHINE OPERATOR 2: OPERATION: 1. Laparoscopic paraesophageal hernia repair. 2. Anterior gastropexy. 3. Intraoperative EGD. ANESTHESIA: General. PREOPERATIVE DIAGNOSIS: Type 3 paraesophageal hernia. POSTOPERATIVE DIAGNOSIS: Type 3 paraesophageal hernia. OPERATIVE INDICATIONS: This is a 67-year-old morbidly obese female, who actually originally started with a BMI of 52, lost over 80 pounds of weight, got down to BMI of 38. She is still fairly obese, but has a very symptomatic type 3 paraesophageal hernia. The risks, benefits, and outcomes of laparoscopic paraesophageal hernia repair was discussed with her in detail. She understood and wished to proceed. OPERATIVE FINDINGS: OPERATIVE PROCEDURE: The patient was identified, brought to the operating room, and placed in the supine position. After general endotracheal anesthesia was administered and all appropriate padding was secured to the table, she was prepped and draped in the usual sterile fashion. Preoperative antibiotics and SCDs were applied. We then began with open cut technique to enter the abdomen in the left upper quadrant. We entered the abdomen under direct vision and insufflated to 50 mmHg. We placed 4 ports in the upper quadrants. We put a liver retractor underneath. We saw very large hiatal hernia with her stomach incarcerated up within it. It was unable to be reduced, so we began by taking down the pars flaccida. This whole operation was very difficult given her upper abdominal obesity, but we were able to carefully and persistently get through it. We began at the 11 o'clock position and got in the appropriate plane in between the sabrina and mediastinal hernia sac. We brought it out, identified the aortoesophageal junction, got to the other side, then took out the entire hernia sac out of the right chest, encircled the esophagus with a [place], then took down the short gastrics, mobilized the posterior hernia sac out, actually ended up removing the entire hernia sac because there was so much obesity and was in my way, carefully doing that to avoid injuring the vagus, esophagus, or stomach. Once we freed up the entire anterior abdominal sabrina and the posterior V we then closed it with three posterior sutures, it was starting to get tight so I did 2 anterior sutures, it came together very nicely, allowed a very comfortable appeture of the esophagus to go through without excessively impinging on it. Given her obesity and size, I did not do a wrap. We then did an anterior gastropexy with two 2-0 Prolene sutures to the anterior abdominal wall. We then performed intraoperative EGD, passing the scope transorally. Under retroflexed view, everything was in good position. There was no leaking. No injuries. We then desufflated, closed the cutdown with #0 Vicryl [id number]. The [place] was removed and all the ports were closed with 4-0 Biosyn, 30 mL of 0.25% Marcaine with epinephrine was instilled in all the ports. Meticulous hemostasis was achieved. The patient was awoken from anesthesia and taken to the recovery room in stable condition. Please note, Dr. Maria T Reed, the attending surgeon, was present and scrubbed for entire procedure. PROCEDURE START: 9:11 AM PROCEDURE END: 11:08 AM INTRAVENOUS FLUIDS: 1l ESTIMATED BLOOD LOSS: Minimal. DRAINS: SPECIMENS: COMPLICATIONS: None. Maria T Reed M.D. MR:[id number] /[id number] cc: URINALYSIS WITH Collected: 05/17/2018 Status: F Source: [facility] 12:52 PM [facility] REPOSITORY TYPE CODE TESTS RESULT OUT OF RANGE REFERENCE UNITS LAB UCOL Yellow Color Abnormal Hollie Alert LAB [facility] Clear Clarity Abnormal Turbid Alert LAB UGLUC Negative mg/dL Glucose, Urine Negative LAB UBIL Negative Bilirubin, Urine Negative LAB UKET Negative Ketones, Urine Negative LAB USPG 1.005-1.030 High Specific Dobson, Ur 1.033 LAB UHGB Negative Hemoglobin/Blood, Negative Ur LAB UPH 4.5-8.0 pH 5.0 LAB UPROT Negative mg/dL Protein, Abnormal Urine 100 Alert LAB UUROB Normal Urobilinogen Normal LAB UNITR Negative Nitrites Negative LAB ULKEST Negative Leukest Abnormal 3+ Alert LAB UCOM Comments SEE COMMENT Result Comment: N/A LAB UMCOM Urine SEE Cruz Comment COMMENT Result Comment: N/A LAB UWBC 0-5 /HPF Abnormal Alert WBC >25 LAB URBC 0-3 /HPF Abnormal Alert RBC 3-5 LAB UCAST 0 /LPF Abnormal Alert Cast SEE COMMENT Result Comment: 4-10 Hyaline Cast LAB UEPI /HPF Epithelial SEE Cells COMMENT Result Comment: Few Squamous Epithelial Cells LAB UCRYS 0 /HPF Abnormal Alert Crystals SEE COMMENT Result Comment: Many Calcium Oxalate Crystal Performed By: #### UAWMIC #### [facility] [address] [place], [place] [address] CNNURSE Observed: 05/17/2018 Status: COMPLETED Source: [place] 11:30 AM [facility] REPOSITORY Nurse Visit (GENSMN) NOREEN INGRAM ([id number]) 1950 F [place] Date Time Provider Department 05/17/18 11:30 AM MARIA T MORELAND (RN) RAY During your visit today, we recorded the following information about you: Maria T Moreland RN, RN 05/17/2018 11:28 AM Signed AMBULATORY PATIENT EDUCATION NOTE TOPIC: Preop Teaching READINESS TO LEARN COGNITIVE ABILITY: Alert and oriented MOTIVATION TO LEARN: Eager FAMILY SUPPORT: High - Very involved in pt care INSTRUCTION PROVIDED TO: Patient and family member PATIENT LEARNS BEST BY: Multiple Methods FACTORS AFFECTING LEARNING: None PHYSICAL LIMITATIONS AFFECTING LEARNING: None LEARNING RESPONSE DIAGNOSIS: Paraesophageal Hernia METHOD OF INSTRUCTION: Individual instruction Written instruction - handouts Verbal instruction PATIENT / FAMILY RESPONSE: Verbalizes understanding of: PAIN MANAGEMENT-Effective strategies to manage pain in addition to pain medication PHYSICAL RESTRICTIONS-Physical restrictions and recommendations after discharge from the hospital POST-OPERATIVE INSTRUCTIONS-Correct actions to take to reduce postoperative complications PRE-OPERATIVE INSTRUCTIONS-Correct action to take to follow pre-operative instructions FOLLOW-UP PLAN: Patient instructed to call with any further issues SUPPLEMENTAL MATERIAL: Your Surgical Guide REFERRAL (RECOMMENDATION): None Electronically Signed By: Maria T Moreland RN In Department: GENERAL SURGERY Referring Provider: MARIA T REED [[id number]] Allergies As of Date: 05/17/2018 Noted Allergy Reaction MORPHINE 11/19/2015 14 - Other: See Comments Comments: Severe hypotension Date Reviewed: 05/17/2018 Reviewed by: Juliana (Rn) MARICEL Everett - Fully Assessed Reason for Visit: Pre-Op Teaching [134] Primary Visit Diagnosis:Paraesophageal hernia [K44.9] Prescriptions as of 05/17/2018 Sig: CHOLECALCIFEROL (VITAMIN D3) * Take 1 capsule by mouth once * LEVOTHYROXINE 75 MCG TABLET Take 75 mcg by mouth daily be* FUROSEMIDE 20 MG TABLET Take 20 mg by mouth once antonietta* POTASSIUM CHLORIDE ER 10 MEQ * Take 10 mEq by mouth twice da* ACETAMINOPHEN 325 MG TABLET Take 2 tablets by mouth every* CLONAZEPAM 1 MG TABLET Take 1 tablet by mouth three * FLUTICASONE 100 MCG-SALMETERO* Inhale 1 Puff as instructed t* PAROXETINE 10 MG TABLET Take 1 tablet by mouth once d* OMEPRAZOLE 20 MG CAPSULE,RADHA* Take 20 mg by mouth once antonietta* MECLIZINE 25 MG TABLET Take 25 mg by mouth every 6 h* ALBUTEROL 90 MCG/ACTUATION AE* Inhale 1-2 Puffs as instructe* Problem List As Of Date 05/17/2018 Noted Resolved Anemia [D64.9] More... Shortness of breath [R06.02] INVALID FOR* More... KAY (iron deficiency anemia) [D50.9] INVALID FOR* Iron malabsorption [K90.9] INVALID FOR* Megaloblastic anemia due to vitamin B12 deficie*INVALID FOR* Paraesophageal hernia [K44.9] INVALID FOR* Mild persistent asthma without complication [J4*INVALID FOR* Hypothyroidism [E03.9] INVALID FOR* Vitamin D deficiency [E55.9] INVALID FOR* Obesity, Class III, BMI >= 40 [E66.01] INVALID FOR* Visit Notes: >> Maria T (Maricel) MARICEL Moreland Mon May 17, 2018 11:27 AM Status: Signed AMBULATORY PATIENT EDUCATION NOTE TOPIC: Preop Teaching READINESS TO LEARN COGNITIVE ABILITY: Alert and oriented MOTIVATION TO LEARN: Eager FAMILY SUPPORT: High - Very involved in pt care INSTRUCTION PROVIDED TO: Patient and family member PATIENT LEARNS BEST BY: Multiple Methods FACTORS AFFECTING LEARNING: None PHYSICAL LIMITATIONS AFFECTING LEARNING: None LEARNING RESPONSE DIAGNOSIS: Paraesophageal Hernia METHOD OF INSTRUCTION: Individual instruction Written instruction - handouts Verbal instruction PATIENT / FAMILY RESPONSE: Verbalizes understanding of: PAIN MANAGEMENT-Effective strategies to manage pain in addition to pain medication PHYSICAL RESTRICTIONS-Physical restrictions and recommendations after discharge from the hospital POST-OPERATIVE INSTRUCTIONS-Correct actions to take to reduce postoperative complications PRE-OPERATIVE INSTRUCTIONS-Correct action to take to follow pre-operative instructions FOLLOW-UP PLAN: Patient instructed to call with any further issues SUPPLEMENTAL MATERIAL: Your Surgical Guide REFERRAL (RECOMMENDATION): None Electronically Signed By: Maria T Moreland RN In Department: GENERAL SURGERY Encounter Status:Closed by MARIA T MORELAND on 05/17/18 CBC AND DIFFERENTIAL Collected: 05/17/2018 Status: F Source: [place] 10:10 AM [facility] REPOSITORY TYPE CODE TESTS RESULT OUT OF REFERENCE UNITS RANGE LAB WBC 3.70-11.00 k/uL WBC 6.24 LAB RBC 3.90-5.20 m/uL Low RBC 3.84 LAB HGB 11.5-15.5 g/dL Hemoglobin 13.3 LAB HCT 36.0-46.0 % Hematocrit 40.8 LAB MCV 80.0-100.0 fL MCV High 106.3 LAB MCH 26.0-34.0 pG MCH High 34.6 LAB MCHC 30.5-36.0 g/dL MCHC 32.6 LAB RDWCV 11.5-15.0 % RDW-CV 13.2 LAB PLTCT 150-400 k/uL Platelet Count 233 LAB MPV 9.0-12.7 fL MPV 9.7 LAB ANEUT % Neut% 66.7 LAB AANEUT 1.45-7.50 k/uL Abs Neut 4.15 LAB ALYMP % Lymph% 22.6 LAB AALYMP 1.00-4.00 k/uL Abs Lymph 1.41 LAB AMONO % Clinton% 7.5 LAB AAMONO <0.87 k/uL Abs Clinton 0.47 LAB AEOS % Eosin% 2.4 LAB AAEOS <0.46 k/uL Abs Eosin 0.15 LAB ABASO % Baso% 0.8 LAB AABASO <0.11 k/uL Abs Baso 0.05 LAB AUNRBC 0 /100 WBC NRBCs 0.0 LAB ABNRBC <0.01 k/uL Absolute nRBC <0.01 LAB DTYP DTYPE Auto Diff Performed By: #### CBCDIF, PT, PTT, PREALB, CMP, HBA1C #### [facility] [address] [place], [place] [address] PROTIME Collected: 05/17/2018 Status: F Source: [place] 10:10 AM [facility] REPOSITORY TYPE CODE TESTS RESULT OUT OF RANGE REFERENCE UNITS LAB PSEC 9.7-13.0 sec PT Sec 10.9 LAB INR 0.9-1.3 PT INR 1.1 Result Comment: Vitamin K Antagonist (VKA) Therapeutic Range: INR 2 to 3 (Target INR of 2.5) Note: For patients treated with VKA drugs, such as warfarin, the [place] [employer] 2012 Guideline recommends a therapeutic INR range of 2 to 3 (target INR of 2.5). This recommendation includes high-risk patients with antiphospholipid syndrome with previous arterial or venous thromboembolism, current-generation mechanical or bioprosthetic aortic heart valve replacement. Note: Patients with mechanical aortic valve replacement and additional risk factors for thromboembolic events (atrial fibrillation, previous thromboembolism, LV dysfunction, hypercoagulable conditions) or an older generation mechanical AVR (i.e., ball in-Cage) or any mechanical MVR should have a INR therapeutic range of 2.5 to 3.5 (target INR of 3). Elza GH, et al. Chest 2012, 141:7S-47S Aron RA, et al. [facility] 2017, 70: 252-289 Performed By: #### CBCDIF, PT, PTT, PREALB, CMP, HBA1C #### [facility] [address] [place], [place] [address] APTT Collected: 05/17/2018 Status: F Source: [place] 10:10 AM [facility] REPOSITORY TYPE CODE TESTS RESULT OUT OF RANGE REFERENCE UNITS LAB APTT 23.0-32.4 sec APTT 25.5 Result Comment: Unfractionated Heparin Therapeutic Ranges: Standard Heparin Nomogram: 53 to 78 seconds (anti-Xa level of 0.3 to 0.7 U/ml) Low Dose/ACS Nomogram: 49 to 67 seconds (anti-Xa level of 0.2 to 0.5 U/ml) Stroke Treatment Nomogram: 49 to 67 seconds (anti-Xa level of 0.2 to 0.5 U/ml) Note: The APTT therapeutic range has been determined for the current lot of laboratory APTT reagent in use throughout the [facility]. Performed By: #### CBCDIF, PT, PTT, PREALB, CMP, HBA1C #### [facility] [address] [place], [place] [address] PREALBUMIN Collected: 05/17/2018 Status: F Source: [place] 10:10 AM [facility] REPOSITORY TYPE CODE TESTS RESULT OUT OF REFERENCE UNITS RANGE LAB PREALB 17-36 mg/dL Prealbumin 24 Performed By: #### CBCDIF, PT, PTT, PREALB, CMP, HBA1C #### [facility] [address] [place], [place] [address] COMP METABOLIC PANEL Collected: 05/17/2018 Status: F Source: [place] 10:10 AM [facility] REPOSITORY TYPE CODE TESTS RESULT OUT OF REFERENCE UNITS RANGE LAB TP 6.3-8.0 g/dL Protein, Total 7.4 LAB ALB 3.9-4.9 g/dL Albumin 4.3 LAB CA 8.5-10.2 mg/dL Calcium, Total 9.6 LAB TBIL 0.2-1.3 mg/dL Bilirubin, Total 0.4 LAB ALKP 32-117 U/L Alkaline Phosphatase 35 LAB AST 13-35 U/L AST 26 LAB GLU 74-99 mg/dL Glucose 90 Result Comment: The [place] [employer] (ADA) provides guidance for cutoff values for fasting glucose and random glucose. The ADA defines fasting as no caloric intake for at least 8 hours. Fas ting plasma glucose results between 100 to 125 mg/dL indicate increased risk for diabetes (prediabetes). Fasting plasma glucose results greater than or equal to 126 mg/dL meet the criteria for diagnosis of diabetes. In the absence of unequivocal hyperglycemia, results should be confirmed by repeat testing. In a patient with classic symptoms of hyperglycemia or hyperglycemic crisis, random plasma glucose results greater than or equal to 200 mg/dL meet the criteria for diagnosis of diabetes. Reference: Standards of Medical Care in Diabetes 2016, [place] [employer]. Diabetes Care. 2016.39(Suppl 1). LAB BUN 7-21 mg/dL BUN 21 LAB CRET 0.58-0.96 mg/dL Creatinine High 1.11 LAB NA 136-144 mmol/L Sodium 143 LAB K 3.7-5.1 mmol/L Potassium 4.2 LAB CL 97-105 mmol/L Chloride High 108 LAB CO2 22-30 mmol/L CO2 23 LAB AGAP 9-18 mmol/L Anion Gap 12 LAB ALT 7-38 U/L ALT 21 LAB GFRAA eGFR- Amer. 59 LAB GFRNAA . eGFR-All Other Races 49 Result Comment: eGFR (Estimated GFR) Units of measure: mL/min/1.73 meters squared eGFR is derived from the reexpressed MDRD Study equation using the following parameters: serum creatinine, age, gender and race. The creatinine assay has been calibrated to be traceable to IDMS. An eGFR <60 mL/min/1.73m2 for >3 months is consistent with chronic kidney disease. Refer to KDOQI guidelines for clinical interpretation. In patients with unstable renal function, e.g. those with acute kidney injury, the eGFR may not accurately reflect actual GFR. Performed By: #### CBCDIF, PT, PTT, PREALB, CMP, HBA1C #### [place] [id number] [place] [id number] HEMOGLOBIN A1C Collected: 05/17/2018 Status: F Source: [place] 10:10 AM [facility] REPOSITORY TYPE CODE TESTS RESULT OUT OF REFERENCE UNITS RANGE LAB HGBA1C 4.3-5.6 % Hemoglobin A1c 4.7 LAB HBA0 mg/dL Est. Average Glucose 88 Result Comment: eAG: (Estimated average glucose) is a calculated value from HgbA1c and is customer response representative of the average blood glucose level in the last 2-3 month period. Performed By: #### CBCDIF, PT, PTT, PREALB, CMP, HBA1C #### [place] [address] TYPE AND SCR (30D) Collected: 05/17/2018 Status: F Source: [place] 10:10 AM [facility] REPOSITORY TYPE CODE TESTS RESULT OUT OF REFERENCE UNITS RANGE LAB %ABR A ABO/RH(D) POSITIVE LAB % Antibody NEG Screen Performed By: #### [id number] #### [place] [address] IRON AND TIBC Collected: 05/17/2018 Status: F Source: [place] 10:10 AM [facility] REPOSITORY TYPE CODE TESTS RESULT OUT OF REFERENCE UNITS RANGE LAB IRN 41-186 ug/dL Iron 81 LAB TIBC 232-386 ug/dL TIBC 303 LAB SAT 15-57 % Transferrin Saturatn 27 Performed By: #### IRON, FERR #### [place] [address] FERRITIN Collected: 05/17/2018 Status: F Source: [place] 10:10 AM [facility] REPOSITORY TYPE CODE TESTS RESULT OUT OF REFERENCE UNITS RANGE LAB FERR 14.7-205.1 ng/mL Ferritin 174.7 Performed By: #### IRON, FERR #### [address], [place] [address] YUNIOR ABS GR + CBC Collected: 05/17/2018 Status: C Source: [place] 10:10 AM [facility] REPOSITORY TYPE CODE TESTS RESULT OUT OF REFERENCE UNITS RANGE LAB WWBC 3.70-11.00 k/uL Test [place] WBC reordered by [facility]. Result Comment: REORDERED [id number], KK 0730 Account Credited LAB WRBC 3.90-5.20 m/uL Test [place] RBC reordered by [facility]. Result Comment: REORDERED [id number], KK 0730 Account Credited LAB WHGB 11.5-15.5 g/dL Yunior Test Hemoglobin reordered by [facility]. Result Comment: REORDERED [id number], KK 0730 Account Credited LAB WHCT 36.0-46.0 % Yunior Test Hematocrit reordered by [facility]. Result Comment: REORDERED [id number], KK 0730 Account Credited LAB WMCV 80.0-100.0 fL Test [place] MCV reordered by [facility]. Result Comment: REORDERED [id number], KK 0730 Account Credited LAB WMCH 26.0-34.0 pg Test [place] MCH reordered by [facility]. Result Comment: REORDERED [id number], KK 0730 Account Credited LAB WMCHC 30.5-36.0 g/dL Test [place] MCHC reordered by [facility]. Result Comment: REORDERED [id number], KK 0730 Account Credited LAB WRDW 11.5-15.0 % Test [place] RDW reordered by [facility]. Result Comment: REORDERED [id number], KK 0730 Account Credited LAB WPLT 150-400 k/uL Test [place] reordered by [facility]. Result Comment: REORDERED [id number], KK 0730 Account Credited LAB WMPV 9.0-12.7 fL Test [place] MPV reordered by [facility]. Result Comment: REORDERED [id number], KK 0730 Account Credited LAB ABGRAN 1.45-7.50 k/uL Test Absol reordered by [facility]. Result Comment: REORDERED [id number], KK 0730 Account Credited LAB ABSNUC <0.01 k/uL Test Absolute nRBC reordered by [facility]. Result Comment: REORDERED [id number], KK 0730 Account Credited Performed By: #### WAGCBC #### [facility] [address] [place], [place] [address] VITAMIN D 25 HYDROXY Collected: 05/17/2018 Status: F Source: [place] 10:10 AM [facility] REPOSITORY TYPE CODE TESTS RESULT OUT OF REFERENCE UNITS RANGE LAB VITD 31.0-80.0 ng/mL Vitamin D 25 38.5 Hydroxy Result Comment: Classification of 25 [place] Vitamin D status: Insufficiency/Moderate Deficiency: < or = 30 ng/mL Sufficiency/Optimal Levels: 31 to 80 ng/mL Toxicity: > 100 ng/mL Test performed by chemiluminescent immunoassay. Performed By: #### VITD #### [facility] [address] [place] [id number] CBC AND DIFFERENTIAL Collected: 05/17/2018 Status: F Source: [place] 9:52 AM [facility] REPOSITORY TYPE CODE TESTS RESULT OUT OF REFERENCE UNITS RANGE LAB WBC 3.70-11.00 k/uL WBC 6.41 LAB RBC 3.90-5.20 m/uL Low RBC 3.71 LAB HGB 11.5-15.5 g/dL Hemoglobin 13.2 LAB HCT 36.0-46.0 % Hematocrit 40.9 LAB MCV 80.0-100.0 fL MCV High 110.2 LAB MCH 26.0-34.0 pG MCH High 35.6 LAB MCHC 30.5-36.0 g/dL MCHC 32.3 LAB RDWCV 11.5-15.0 % RDW-CV 13.3 LAB PLTCT 150-400 k/uL Platelet Count 242 LAB MPV 9.0-12.7 fL MPV 10.0 LAB ANEUT % Neut% 67.9 LAB AANEUT 1.45-7.50 k/uL Abs Neut 4.34 LAB ALYMP % Lymph% 22.2 LAB AALYMP 1.00-4.00 k/uL Abs Lymph 1.42 LAB AMONO % Clinton% 7.0 LAB AAMONO <0.87 k/uL Abs [place] 0.45 LAB AEOS % Eosin% 2.3 LAB AAEOS <0.46 k/uL Abs Eosin 0.15 LAB ABASO % Baso% 0.6 LAB AABASO <0.11 k/uL Abs Baso 0.04 LAB AUNRBC 0 /100 WBC NRBCs 0.0 LAB ABNRBC <0.01 k/uL Absolute nRBC <0.01 LAB DTYP DTYPE Auto Diff LAB REVW Review Done Performed By: #### CBCDIF #### [facility] [address] [place], [place] [address] ECG COMPLETE W Observed: 05/17/2018 Status: F Source: [place] INTERPRETATION 9:37 AM [facility] REPOSITORY NAME : NOREEN INGRAM PID : [id number] : 1950 Gender : Female Race : ORD : [id number] Procedure Date : May 17 2018 09:37:13 Edit Date : May 21 2018 19:06:32 Diagnosis:SINUS BRADYCARDIA OTHERWISE NORMAL ECG Confirmed by Royal REDDY M.D. ([id number]) on 05/21/2018 7:02:12 PM Ventricular Rate : 59 BPM Atrial Rate : 59 BPM P-R Interval : 188 ms QRS Duration : 96 ms Q-T Interval : 422 ms QTC Calculation(Bezet) : 417 ms P Golden : 35 degrees R Golden : 1 degrees T Golden : 3 degrees Test Reason : Location : 119 : A17 Overread By : Royal REDDY M.D. Edited By : Royal REDDY M.D. Referred By : MARIA T REED Acquired by : ADAIR MATHEW PROGRESS Observed: 05/17/2018 Status: COMPLETED Source: [place] 9:23 AM [facility] REPOSITORY HNO ID: [id number] Author: Juliana (Rn) MARICEL Everett Service: (none) Author Type: Registered Nurse Type: Progress Notes Filed: 05/17/2018 9:32 AM Note Text: ANESTHESIA PRE-OPERATIVE ASSESSMENT (PACE) SERVICE DATE: 05/17/2018 SERVICE TIME: 9:23 ASSESSMENT AND PLAN: Noreen Ingram is a 67 year old female scheduled for Laparoscopic paraesophageal hernia repair with EGD per Informed Consent in MAIN on 05/19/2018. PMH: Paraesophageal Hernia Slow Emergence: Slept into next day per patient BLLE: Lasix Chest pain: Epigastric, worse after eating Asthma: Advair, last used albuterol 05/15/2019 GERD: Controlled with Omeprazole Hypothyroid: Levothyroxine Megaloblastic Anemia: D/T Vit B12 deficiency. Vit b12 injections monthly Vertigo: Meclizine three times a week. Falls with vertigo. Dx 2017 Anxiety/Depression: Clonazepam, Paroxetine [facility]: 4 FC: 2-3 Short winded with walking distances, states do to asthma METS: Climb a flight of stairs or walk up a hill (5.50 METs) Patient denies any chest pain or undue shortness of breath with the above physical activity. ADDITIONAL DISCUSSION WITH PATIENT: Discussed with patient the possibilities of invasive monitoring, blood loss or possible need for blood transfusion. Patient WILL accept blood products. BLOOD WORK/PRODUCTS ORDERED: Type and Screen , Con ABO HISTORY OF CHRONIC PAIN: No PAIN MANAGEMENT OPTIONS: Final pain management plan will be discussed on the day of surgery. ANESTHETIC OPTIONS: Final anesthesia management options will be discussed on day of surgery. PRE-OP PLAN ORDERED: Not Applicable Patient Instructed: ? No solid food or non-clear liquids after midnight. Clear liquids allowed until two hours before scheduled arrival. ? Patient instructed to take the following medications with a sip of water: Advair, Albuterol, Clonazepam Vital Signs: BP 134/71 (BP Site: Left Arm, BP Position: Sitting, BP Cuff Size: Large Adult) Pulse 65 Ht 160 cm (5' 3) Wt 99.5 kg (219 lb 5.7 oz) LMP 08/26/2017 SpO2 96% BMI 38.86 kg/m? BMI 38.86 kg/(m2) Vital signs completed by: IMPACT Weight acquired: per HANDP. Height acquired: per HANDP Airway Exam: MOUTH OPENING/TMJ: Full jaw ROM MICROGNATHIA/OVERBITE: No MALLAMPATI SCORE is CLASS III UPPER LIP BITE TEST: No lower teeth to perform DENTITION: Chipped, loose, and/or missing - Dentures upper and 7 teeth lower, chipped, broken THYROMENTAL DIST: WNL SHORT NECK: No NECK CIRCUMFERENCE >40 cm: Appears < than 40 CM NECK FLEX: Full ROM NECK EXTENSION: Full ROM AIRWAY HISTORY: No abnormal airway history ARKS AIRWAY DETAIL: N/A DATA: EKG READING: Confirmed - 01/29/2018 NSR To be repeated 05/17/2018 OTHER TESTS: Stress Test: Date: 07/29/2013 OSR , Results: Negative for reversible ischemia EF 56% Echo: Date: 11/16/2015 , Results: - Technically difficult exam due to body habitus and suboptimal positioning. - Exam indication: Shortness of Breath - The left ventricle is normal in size. There is moderate upper septal left ventricular hypertrophy. Left ventricular systolic function is normal. EF = 65 ? 5% (2D biplane) Baseline left ventricular diastolic function is consistent with abnormal relaxation (stage 1). - The right ventricle is normal in size. Right ventricular systolic function is normal. - The left atrial cavity?is mildly dilated. - There are no significant valvular abnormalities. - The patient has not had a prior CC echocardiographic exam for comparison. Lab Value Units Date High Low HB No results within date range. HCT No results within date range. WBC No results within date range. PLT No results within date range. NA No results within date range. K No results within date range. GLUC No results within date range. BUN No results within date range. CREAT No results within date range. PTSEC No results within date range. INR No results within date range. APTT No results within date range. ALT No results within date range. AST No results within date range. TBILI No results within date range. TSH No results within date range. Lab Value Units Date High Low HCGQT No results within date range. UHCG No results within date range. HCG, BODY* No results within date range. ABORHD No results within date range. ABSCREEN No results within date range. HBA1C: Hemoglobin A1C (%) Date Value 01/26/2018 5.0 ) Patient accompanied by Sister Case Discussed with Dr Yoon OPTIMIZATION STATUS: Patient optimization pending Labs IMPACT EKG IMPACT SIGNATURE: Juliana Everett RN PATIENT NAME: Noreen Ingram DATE: May 17, 2018 TIME: 9:23 AM PAGER/CONTACT #: CNOV Observed: 05/17/2018 Status: COMPLETED Source: [place] 8:50 AM [facility] REPOSITORY Office Visit (PSSCMN) NOREEN INGRAM ([id number]) 1950 [place] Date Time Provider Department 05/17/18 8:50 AM [facility] During your visit today, we recorded the following information about you: Pulse Blood pressure Weight Height 65/minute 134/71 99.5 kg 1.6 m Juliana Everett, RN, RN 05/17/2018 9:32 AM Signed ANESTHESIA PRE-OPERATIVE ASSESSMENT (PACE) SERVICE DATE: 05/17/2018 SERVICE TIME: 9:23 ASSESSMENT AND PLAN: Noreen Ingram is a 67 year old female scheduled for Laparoscopic paraesophageal hernia repair with EGD per Informed Consent in MAIN on 05/19/2018. PMH: Paraesophageal Hernia Slow Emergence: Slept into next day per patient BLLE: Lasix Chest pain: Epigastric, worse after eating Asthma: Advair, last used albuterol 05/15/2019 GERD: Controlled with Omeprazole Hypothyroid: Levothyroxine Megaloblastic Anemia: D/T Vit B12 deficiency. Vit b12 injections monthly Vertigo: Meclizine three times a week. Falls with vertigo. Dx 2017 Anxiety/Depression: Clonazepam, Paroxetine [facility]: 4 FC: 2-3 Short winded with walking distances, states do to asthma METS: Climb a flight of stairs or walk up a hill (5.50 METs) Patient denies any chest pain or undue shortness of breath with the above physical activity. ADDITIONAL DISCUSSION WITH PATIENT: Discussed with patient the possibilities of invasive monitoring, blood loss or possible need for blood transfusion. Patient WILL accept blood products. BLOOD WORK/PRODUCTS ORDERED: Type and Screen , Con ABO HISTORY OF CHRONIC PAIN: No PAIN MANAGEMENT OPTIONS: Final pain management plan will be discussed on the day of surgery. ANESTHETIC OPTIONS: Final anesthesia management options will be discussed on day of surgery. PRE-OP PLAN ORDERED: Not Applicable Patient Instructed: ? No solid food or non-clear liquids after midnight. Clear liquids allowed until two hours before scheduled arrival. ? Patient instructed to take the following medications with a sip of water: Advair, Albuterol, Clonazepam Vital Signs: BP 134/71 (BP Site: Left Arm, BP Position: Sitting, BP Cuff Size: Large Adult) Pulse 65 Ht 160 cm (5' 3) Wt 99.5 kg (219 lb 5.7 oz) LMP 08/26/2017 SpO2 96% BMI 38.86 kg/m? BMI 38.86 kg/(m2) Vital signs completed by: IMPACT Weight acquired: per HANDP. Height acquired: per HANDP Airway Exam: MOUTH OPENING/TMJ: Full jaw ROM MICROGNATHIA/OVERBITE: No MALLAMPATI SCORE is CLASS III UPPER LIP BITE TEST: No lower teeth to perform DENTITION: Chipped, loose, and/or missing - Dentures upper and 7 teeth lower, chipped, broken THYROMENTAL DIST: WNL SHORT NECK: No NECK CIRCUMFERENCE >40 cm: Appears < than 40 CM NECK FLEX: Full ROM NECK EXTENSION: Full ROM AIRWAY HISTORY: No abnormal airway history ARKS AIRWAY DETAIL: N/A DATA: EKG READING: Confirmed - 01/29/2018 NSR To be repeated 05/17/2018 OTHER TESTS: Stress Test: Date: 07/29/2013 OSR , Results: Negative for reversible ischemia EF 56% Echo: Date: 11/16/2015 , Results: - Technically difficult exam due to body habitus and suboptimal positioning. - Exam indication: Shortness of Breath - The left ventricle is normal in size. There is moderate upper septal left ventricular hypertrophy. Left ventricular systolic function is normal. EF = 65 ? 5% (2D biplane) Baseline left ventricular diastolic function is consistent with abnormal relaxation (stage 1). - The right ventricle is normal in size. Right ventricular systolic function is normal. - The left atrial cavity?is mildly dilated. - There are no significant valvular abnormalities. - The patient has not had a prior CC echocardiographic exam for comparison. Lab Value Units Date High Low HB No results within date range. HCT No results within date range. WBC No results within date range. PLT No results within date range. NA No results within date range. K No results within date range. GLUC No results within date range. BUN No results within date range. CREAT No results within date range. PTSEC No results within date range. INR No results within date range. APTT No results within date range. ALT No results within date range. AST No results within date range. TBILI No results within date range. TSH No results within date range. Lab Value Units Date High Low HCGQT No results within date range. UHCG No results within date range. HCG, BODY* No results within date range. ABORHD No results within date range. ABSCREEN No results within date range. HBA1C: Hemoglobin A1C (%) Date Value 01/26/2018 5.0 ) Patient accompanied by Sister Case Discussed with Dr Yoon OPTIMIZATION STATUS: Patient optimization pending Labs IMPACT EKG IMPACT SIGNATURE: Juliana Everett RN PATIENT NAME: Noreen Ingram DATE: May 17, 2018 TIME: 9:23 AM PAGER/CONTACT #: Referring Provider: MARIA T REED [[id number]] Allergies As of Date: 05/17/2018 Noted Allergy Reaction MORPHINE 11/19/2015 14 - Other: See Comments Comments: Severe hypotension Date Reviewed: 05/17/2018 Reviewed by: Juliana (Maricel) MARICEL Everett - Fully Assessed Primary Visit Diagnosis:Pre-op evaluation [Z01.818] Prescriptions as of 05/17/2018 Sig: VITAMIN B-12 INJECTION by INJECTION(UNSPECIFIED PARE* CHOLECALCIFEROL (VITAMIN D3) * Take 1 capsule by mouth once * LEVOTHYROXINE 75 MCG TABLET Take 75 mcg by mouth daily be* FUROSEMIDE 20 MG TABLET Take 20 mg by mouth once antonietta* POTASSIUM CHLORIDE ER 10 MEQ * Take 10 mEq by mouth twice da* ACETAMINOPHEN 325 MG TABLET Take 2 tablets by mouth every* CLONAZEPAM 1 MG TABLET Take 1 tablet by mouth three * FLUTICASONE 100 MCG-SALMETERO* Inhale 1 Puff as instructed t* PAROXETINE 10 MG TABLET Take 1 tablet by mouth once d* OMEPRAZOLE 20 MG CAPSULE,RADHA* Take 20 mg by mouth once antonietta* MECLIZINE 25 MG TABLET Take 25 mg by mouth every 6 h* ALBUTEROL 90 MCG/ACTUATION AE* Inhale 1-2 Puffs as instructe* Problem List As Of Date 05/17/2018 Noted Resolved Anemia [D64.9] More... Shortness of breath [R06.02] INVALID FOR* More... KAY (iron deficiency anemia) [D50.9] INVALID FOR* Iron malabsorption [K90.9] INVALID FOR* Megaloblastic anemia due to vitamin B12 deficie*INVALID FOR* Paraesophageal hernia [K44.9] INVALID FOR* Mild persistent asthma without complication [J4*INVALID FOR* Hypothyroidism [E03.9] INVALID FOR* Vitamin D deficiency [E55.9] INVALID FOR* Obesity, Class III, BMI >= 40 [E66.01] INVALID FOR* Encounter Status:Closed by JULIANA EVERETT on 05/17/18 Chart Close Cosign Required by: Andriy Yoon[] HISTORY PHYSICAL Observed: 05/17/2018 Status: COMPLETED Source: [place] 8:04 AM [facility] REPOSITORY HNO ID: [id number] Author: Myron Koenig Service: (none) Author Type: Physician Type: HANDP Filed: 05/20/2018 7:55 AM Note Text: HISTORY AND PHYSICAL EXAMINATION (IMPACT) SERVICE DATE: 05/17/2018 SERVICE TIME: 8:04 AM PRIMARY CARE PHYSICIAN: Nancy Madison Jr, MD CHIEF COMPLAINT/HISTORY OF PRESENT ILLNESS: Ms. Ingram is a 67 year old female referred to me for preoperative evaluation. My final recommendations will be communicated back to the requesting physician/surgeon by the way of the shared medical record. Referring Surgeon: Dr. REED Date of Surgery: 05/19/2018 Planned Surgery/Procedure: LAPAROSCOPIC RPR PARAESOPHAGEAL HERNIA W/O FUNDOPLASTY W/ MESH Indication for Planned Surgery / Procedure: Pain; Location: Esophagus; Onset: Gradual; Duration: Chronic; Severity: Severe; Associated Symptoms: Food also feels like it's stuck Refer to Assessment section for details of any comorbidities. Patient is Able to Perform the Following Physical Activity: Goes to gym, [employer], 2x/week, gets on treadmill (5.0METS) Patient's functional class is II based on self-reported physical activity. Significant Anesthesia Considerations: Slow emergence. PAST MEDICAL/SURGICAL/FAMILY/SOCIAL HISTORY PAST MEDICAL HISTORY Diagnosis Date - Anemia - Arthritis rhuematoid - Hiatal hernia with gastroesophageal reflux disease and esophagitis 01/20/2017 - Hypertension - Morbid obesity (HCC) - Thyroid disease PAST SURGICAL HISTORY Procedure Laterality Date - APPENDECTOMY HX - CHOLECYSTECTOMY HX - COLONOSCOP W/ OR W/O BRSH SPEC 08/03/12 [facility] [place] - COLONOSCOPY W/BX 11/19/2015 - EGD W/O BRSH SPECIMEN W/BX 01/20/2017 - EGD W/O OR W/BRUSH/WASH 11/29/12 [facility] - EGD W/O OR W/BRUSH/WASH 03/10/13 EGD FAMILY HISTORY Problem Relation Age of Onset - CHF [Other] [OTHER] Mother - suicide [Other] [OTHER] Father - Disc disease [Other] [OTHER] Brother - lupus [Other] [OTHER] Sister hypertension - brain tumor [Other] [OTHER] Maternal Grandmother SOCIAL HISTORYSocial History Marital status: Spouse name: Years of education: Number of children: 3 Occupational History Occupation Employer Comment [employer] Social History Main Topics Smoking status: Never Smoker Smokeless tobacco: Never Used Alcohol use: Yes Comment: occassional wine cooler during summer Drug use: No Sexual activity: Not Currently Other Topics Concern Blood Transfusions No MEDICATIONS/ALLERGIES Current Outpatient Prescriptions: cholecalciferol, Vitamin D3, (VITAMIN D3) 50,000 unit cap capsule Take 1 capsule by mouth once each week. Disp: 12 capsule Rfl: 1 levothyroxine (SYNTHROID) 75 mcg tablet Take 75 mcg by mouth daily before breakfast. Disp: Rfl: furosemide (LASIX) 20 mg tablet Take 20 mg by mouth once daily. Disp: Rfl: potassium chloride (K-TAB) 10 mEq tablet Take 10 mEq by mouth twice daily. Disp: Rfl: acetaminophen (TYLENOL) 325 mg tablet Take 2 tablets by mouth every 4 hours as needed for up to 1 dose. Disp: 30 tablet Rfl: 3 clonazePAM (KLONOPIN) 1 mg tablet Take 1 tablet by mouth three times daily as needed (anxiety). Disp: 30 tablet Rfl: 3 fluticasone-salmeterol (ADVAIR) 100-50 mcg/dose dsdv Inhale 1 Puff as instructed twice daily. Disp: 3 Inhaler Rfl: 3 PARoxetine (PAXIL) 10 mg tablet Take 1 tablet by mouth once daily. Disp: 30 tablet Rfl: 3 omeprazole 20 mg capsule Take 20 mg by mouth once daily. Disp: Rfl: meclizine 25 mg Tab Take 25 mg by mouth every 6 hours as needed. Disp: Rfl: albuterol 90 mcg/actuation Aero Inhale 1-2 Puffs as instructed four times daily as needed (Wheezing and shortness of Breath). Disp: 1 Inhaler Rfl: 0 No current facility-administered medications for this visit. ALLERGIES Allergen Reactions - Morphine Other: See Comments Severe hypotension REVIEW OF SYSTEMS General: Weight loss and was intentional, 70lbs Neuro: Pt has occasional, but increasing in frequency lately Respiratory: Asthma, well controlled Cardiovascular: Hypertension requiring meds GI: Abdominal pain, Dysphagia, Diarrhea : No history of UTI in past 6 weeks. No history of renal failure. Not currently on or requiring dialysis. No history of symptoms or problems. 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 Endocrine: Hypothyroidism Hematology: No history of bleeding or clotting disorder. No history of hematological symptoms or problems. Oncology: No history of CA metastasis, chemo within 30 days, or radiotherapy within 90 days. No history of oncological symptoms or problems. Psych: No history of psychiatric symptoms or problems. Skin: easy bruising PHYSICAL EXAM VITALS: BP 134/71 Pulse 65 Temp (Src) 97.6 (Oral) Ht 5' 3 (1.60m) Wt 219 lb 6.4 oz (99.5kg) SpO2 96% LMP 08/26/2017 BMI 38.87 kg/(m2). General: Alert and oriented, Obese Skin: Normal color, no rash, no lesions. HEENT: EOM, pupils equal, round and reactive. Cardiovascular: Normal S1 AND S2, no rubs, murmurs or gallops. No JVD. Pulse regular. Lungs: Normal breath sounds, no wheezes or crackles. Abdomen: Soft, non-tender, no rigidity. Extremities: No deformity, no edema or tenderness, no joint swelling or clubbing. Neurological: Normal cognition and motor skills. Pulses: Carotid and radial pulses normal +2. ASSESSMENT Ms. Ingram is a 67 year old female referred to me for preoperative evaluation. Patient has the following medical comorbidities which might affect the perioperative course: Diagnosis Date - Anemia - Arthritis rhuematoid - Hiatal hernia with gastroesophageal reflux disease and esophagitis 01/20/2017 - Hypertension - Morbid obesity (HCC) - Thyroid disease Patient's RCRI (Revised Cardiac Risk Index: CAD/CHF/Stroke or TIA/SCr>2/DM on Insulin/High Risk Surgery) score is 0 and is at low risk for major adverse cardiac events in the perioperative period. Diagnostic tests reviewed for today's visit: Most recent Echo Most recent stress test PLAN/RECOMMENDATIONS CARDIAC: Patient is at optimal cardiac condition for scheduled surgery / procedure. Patient is optimally prepared for surgery pending labs and EKG Patient Instructions: As per patient instructions section. I have discussed the above recommendations with the patient in detail, in earnest and lay terms, and provided a written summary of instructions as needed. We have discussed that no surgery is without risk, but that the goal of preoperative assessment is to optimize that risk, and that was clearly understood by the patient. I have given ample opportunity for the patient to ask questions, and answered all questions to their stated satisfaction. SIGNATURE: Myron Koenig MD PATIENT NAME: Noreen Ingram DATE: May 17, 2018 TIME: 8:04 AM Addendum: Labs reviewed and are within acceptable limits EKG reviewed Pt is optimally prepared for surgery. Myron Koenig MD CNOV Observed: 05/17/2018 Status: COMPLETED Source: [place] 7:45 AM [facility] REPOSITORY Office Visit (IMPAMN) NOREEN INGRAM ([id number]) 1950 [facility] Time Provider Department 05/17/18 7:45 AM MYRON KOENIG During your visit today, we recorded the following information about you: Temperature Pulse Blood pressure Weight 97.6 degrees 65/minute 134/71 99.5 kg Height 1.6 m Isma Sheldon LPN 05/17/2018 8:34 AM Signed Noreen Ingram is a 67 year old female here today for visit in [facility] Referring Surgeon: Dr. REED Date of Surgery: 05/19/2018 Planned Surgery/Procedure: LAPAROSCOPIC RPR PARAESOPHAGEAL HERNIA W/O FUNDOPLASTY W/ MESH Allergies have been reviewed and verified. They include the following: Morphine Social History Substance Use Topics - Smoking status: Never Smoker - Smokeless tobacco: Never Used - Alcohol use Yes Comment: occassional wine cooler during summer Medications reviewed and updated: Yes Isma Koenig MD 05/20/2018 7:55 AM Addendum HISTORY AND PHYSICAL EXAMINATION (IMPACT) SERVICE DATE: 05/17/2018 SERVICE TIME: 8:04 AM PRIMARY CARE PHYSICIAN: Nancy Madison Jr, MD CHIEF COMPLAINT/HISTORY OF PRESENT ILLNESS: Ms. Ingram is a 67 year old female referred to me for preoperative evaluation. My final recommendations will be communicated back to the requesting physician/surgeon by the way of the shared medical record. Referring Surgeon: Dr. REED Date of Surgery: 05/19/2018 Planned Surgery/Procedure: LAPAROSCOPIC RPR PARAESOPHAGEAL HERNIA W/O FUNDOPLASTY W/ MESH Indication for Planned Surgery / Procedure: Pain; Location: Esophagus; Onset: Gradual; Duration: Chronic; Severity: Severe; Associated Symptoms: Food also feels like it's stuck Refer to Assessment section for details of any comorbidities. Patient is Able to Perform the Following Physical Activity: Goes to gym, [employer], 2x/week, gets on treadmill (5.0METS) Patient's functional class is II based on self-reported physical activity. Significant Anesthesia Considerations: Slow emergence. PAST MEDICAL/SURGICAL/FAMILY/SOCIAL HISTORY PAST MEDICAL HISTORY Diagnosis Date - Anemia - Arthritis rhuematoid - Hiatal hernia with gastroesophageal reflux disease and esophagitis 01/20/2017 - Hypertension - Morbid obesity (HCC) - Thyroid disease PAST SURGICAL HISTORY Procedure Laterality Date - APPENDECTOMY HX - CHOLECYSTECTOMY HX - COLONOSCOP W/ OR W/O BRSH SPEC 08/03/12 [facility] - COLONOSCOPY W/BX 11/19/2015 - EGD W/O BRSH SPECIMEN W/BX 01/20/2017 - EGD W/O OR W/BRUSH/WASH 11/29/12 [place] - EGD W/O OR W/BRUSH/WASH 03/10/13 EGD FAMILY HISTORY Problem Relation Age of Onset - CHF [Other] [OTHER] Mother - suicide [Other] [OTHER] Father - Disc disease [Other] [OTHER] Brother - lupus [Other] [OTHER] Sister hypertension - brain tumor [Other] [OTHER] Maternal Grandmother SOCIAL HISTORYSocial History Marital status: Spouse name: Years of education: Number of children: 3 Occupational History Occupation Employer Comment [employer] Social History Main Topics Smoking status: Never Smoker Smokeless tobacco: Never Used Alcohol use: Yes Comment: occassional wine cooler during summer Drug use: No Sexual activity: Not Currently Other Topics Concern Blood Transfusions No MEDICATIONS/ALLERGIES Current Outpatient Prescriptions: cholecalciferol, Vitamin D3, (VITAMIN D3) 50,000 unit cap capsule Take 1 capsule by mouth once each week. Disp: 12 capsule Rfl: 1 levothyroxine (SYNTHROID) 75 mcg tablet Take 75 mcg by mouth daily before breakfast. Disp: Rfl: furosemide (LASIX) 20 mg tablet Take 20 mg by mouth once daily. Disp: Rfl: potassium chloride (K-TAB) 10 mEq tablet Take 10 mEq by mouth twice daily. Disp: Rfl: acetaminophen (TYLENOL) 325 mg tablet Take 2 tablets by mouth every 4 hours as needed for up to 1 dose. Disp: 30 tablet Rfl: 3 clonazePAM (KLONOPIN) 1 mg tablet Take 1 tablet by mouth three times daily as needed (anxiety). Disp: 30 tablet Rfl: 3 fluticasone-salmeterol (ADVAIR) 100-50 mcg/dose dsdv Inhale 1 Puff as instructed twice daily. Disp: 3 Inhaler Rfl: 3 PARoxetine (PAXIL) 10 mg tablet Take 1 tablet by mouth once daily. Disp: 30 tablet Rfl: 3 omeprazole 20 mg capsule Take 20 mg by mouth once daily. Disp: Rfl: meclizine 25 mg Tab Take 25 mg by mouth every 6 hours as needed. Disp: Rfl: albuterol 90 mcg/actuation Aero Inhale 1-2 Puffs as instructed four times daily as needed (Wheezing and shortness of Breath). Disp: 1 Inhaler Rfl: 0 No current facility-administered medications for this visit. ALLERGIES Allergen Reactions - Morphine Other: See Comments Severe hypotension REVIEW OF SYSTEMS General: Weight loss and was intentional, 70lbs Neuro: Pt has occasional, but increasing in frequency lately Respiratory: Asthma, well controlled Cardiovascular: Hypertension requiring meds GI: Abdominal pain, Dysphagia, Diarrhea : No history of UTI in past 6 weeks. No history of renal failure. Not currently on or requiring dialysis. No history of symptoms or problems. 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 Endocrine: Hypothyroidism Hematology: No history of bleeding or clotting disorder. No history of hematological symptoms or problems. Oncology: No history of CA metastasis, chemo within 30 days, or radiotherapy within 90 days. No history of oncological symptoms or problems. Psych: No history of psychiatric symptoms or problems. Skin: easy bruising PHYSICAL EXAM VITALS: BP 134/71 Pulse 65 Temp (Src) 97.6 (Oral) Ht 5' 3 (1.60m) Wt 219 lb 6.4 oz (99.5kg) SpO2 96% LMP 08/26/2017 BMI 38.87 kg/(m2). General: Alert and oriented, Obese Skin: Normal color, no rash, no lesions. HEENT: EOM, pupils equal, round and reactive. Cardiovascular: Normal S1 AND S2, no rubs, murmurs or gallops. No JVD. Pulse regular. Lungs: Normal breath sounds, no wheezes or crackles. Abdomen: Soft, non-tender, no rigidity. Extremities: No deformity, no edema or tenderness, no joint swelling or clubbing. Neurological: Normal cognition and motor skills. Pulses: Carotid and radial pulses normal +2. ASSESSMENT Ms. Ingram is a 67 year old female referred to me for preoperative evaluation. Patient has the following medical comorbidities which might affect the perioperative course: Diagnosis Date - Anemia - Arthritis rhuematoid - Hiatal hernia with gastroesophageal reflux disease and esophagitis 01/20/2017 - Hypertension - Morbid obesity (HCC) - Thyroid disease Patient's RCRI (Revised Cardiac Risk Index: CAD/CHF/Stroke or TIA/SCr>2/DM on Insulin/High Risk Surgery) score is 0 and is at low risk for major adverse cardiac events in the perioperative period. Diagnostic tests reviewed for today's visit: Most recent Echo Most recent stress test PLAN/RECOMMENDATIONS CARDIAC: Patient is at optimal cardiac condition for scheduled surgery / procedure. Patient is optimally prepared for surgery pending labs and EKG Patient Instructions: As per patient instructions section. I have discussed the above recommendations with the patient in detail, in earnest and lay terms, and provided a written summary of instructions as needed. We have discussed that no surgery is without risk, but that the goal of preoperative assessment is to optimize that risk, and that was clearly understood by the patient. I have given ample opportunity for the patient to ask questions, and answered all questions to their stated satisfaction. SIGNATURE: Myron Koenig MD PATIENT NAME: Noreen Ingram DATE: May 17, 2018 TIME: 8:04 AM Addendum: Labs reviewed and are within acceptable limits EKG reviewed Pt is optimally prepared for surgery. MD Mryon Ley MD 05/17/2018 8:19 AM Signed [facility] Patient Instructions for Surgery FOOD INSTRUCTIONS: NO solid food or non-clear liquids for 8 hours prior to the arrival time for your surgery. Unless you are instructed otherwise, you are allowed to drink up to 12 ounces of clear liquids (e.g. water, black tea/coffee, fruit juice without pulp, Lisa Gifty, etc.) up until 2 hours prior to the arrival time for surgery. MEDICATION INSTRUCTIONS: Prior to Surgery: Do not take the following medications for 7 days prior to surgery: - any NSAID's (e.g. Motrin, Aleve, Arthrotec, Naproxen,etc) - any herbal preparations - Aspirin or aspirin containing products Do not take any Vitamin E / multivitamins for 10-14 days before surgery You are allowed to take Tylenol if needed until the day of surgery. Continue all medications until the night prior to surgery: cholecalciferol, Vitamin D3, (VITAMIN D3) 50,000 unit cap capsule Take 1 capsule by mouth once each week. levothyroxine (SYNTHROID) 75 mcg tablet Take 75 mcg by mouth daily before breakfast. furosemide (LASIX) 20 mg tablet Take 20 mg by mouth once daily. potassium chloride (K-TAB) 10 mEq tablet Take 10 mEq by mouth twice daily. acetaminophen (TYLENOL) 325 mg tablet Take 2 tablets by mouth every 4 hours as needed for up to 1 dose. clonazePAM (KLONOPIN) 1 mg tablet Take 1 tablet by mouth three times daily as needed (anxiety). fluticasone-salmeterol (ADVAIR) 100-50 mcg/dose dsdv Inhale 1 Puff as instructed twice daily. PARoxetine (PAXIL) 10 mg tablet Take 1 tablet by mouth once daily. omeprazole 20 mg capsule Take 20 mg by mouth once daily. meclizine 25 mg Tab Take 25 mg by mouth every 6 hours as needed. albuterol 90 mcg/actuation Aero Inhale 1-2 Puffs as instructed four times daily as needed (Wheezing and shortness of Breath). MEDICATION INSTRUCTIONS: Day/Morning of Surgery: The following medications should be taken with sips of water: Klonopin Use your inhalers as needed / prescribed on day of surgery. Bring your inhaler with you to the hospital. If you have any questions or concerns regarding today's visit please do not hesitate to contact the [facility] center at [phone] or [phone], ext [phone]. Signature: Myron Koenig MD Date: May 17, 2018 Referring Provider: MARIA T REED [[id number]] Allergies As of Date: 05/17/2018 Noted Allergy Reaction MORPHINE 11/19/2015 14 - Other: See Comments Comments: Severe hypotension Date Reviewed: 05/17/2018 Reviewed by: Juliana (Rn) MARICEL Everett - Fully Assessed Primary Visit Diagnosis:Anemia due to other cause, not classified [D64.89] Other Visit Diagnoses:Pre-operative examination [Z01.818] Hypothyroidism, unspecified type [E03.9] Mild persistent asthma without complication [J45.30] Obesity, Class III, BMI >= 40 [E66.01] Paraesophageal hernia [K44.9] Prescriptions as of 05/17/2018 Sig: CHOLECALCIFEROL (VITAMIN D3) * Take 1 capsule by mouth once * LEVOTHYROXINE 75 MCG TABLET Take 75 mcg by mouth daily be* FUROSEMIDE 20 MG TABLET Take 20 mg by mouth once antonietta* POTASSIUM CHLORIDE ER 10 MEQ * Take 10 mEq by mouth twice da* ACETAMINOPHEN 325 MG TABLET Take 2 tablets by mouth every* CLONAZEPAM 1 MG TABLET Take 1 tablet by mouth three * FLUTICASONE 100 MCG-SALMETERO* Inhale 1 Puff as instructed t* PAROXETINE 10 MG TABLET Take 1 tablet by mouth once d* OMEPRAZOLE 20 MG CAPSULE,RADHA* Take 20 mg by mouth once antonietta* MECLIZINE 25 MG TABLET Take 25 mg by mouth every 6 h* ALBUTEROL 90 MCG/ACTUATION AE* Inhale 1-2 Puffs as instructe* Medication notes this encounter OMEPRAZOLE 20 MG CAPSULE,DELAYED RELEASE >> Isma Sheldon LPN 05/17/2018 7:56 AM >> ISMA SHELDON LPN ThuMay 17, 2018 7:56 AM MECLIZINE 25 MG TABLET >> Isma Sheldon LPN 05/17/2018 7:56 AM >> ISMA SHELDON LPN ThuMay 17, 2018 7:56 AM Problem List As Of Date 05/17/2018 Noted Resolved Anemia [D64.9] More... Shortness of breath [R06.02] INVALID FOR* More... KAY (iron deficiency anemia) [D50.9] INVALID FOR* Iron malabsorption [K90.9] INVALID FOR* Megaloblastic anemia due to vitamin B12 deficie*INVALID FOR* Paraesophageal hernia [K44.9] INVALID FOR* Mild persistent asthma without complication [J4*INVALID FOR* Hypothyroidism [E03.9] INVALID FOR* Vitamin D deficiency [E55.9] INVALID FOR* Obesity, Class III, BMI >= 40 [E66.01] INVALID FOR* Other instructions from your clinician: [facility] Patient Instructions for Surgery FOOD INSTRUCTIONS: NO solid food or non-clear liquids for 8 hours prior to the arrival time for your surgery. Unless you are instructed otherwise, you are allowed to drink up to 12 ounces of clear liquids (e.g. water, black tea/coffee, fruit juice without pulp, Lisa Gifty, etc.) up until 2 hours prior to the arrival time for surgery. MEDICATION INSTRUCTIONS: Prior to Surgery: Do not take the following medications for 7 days prior to surgery: - any NSAID's (e.g. Motrin, Aleve, Arthrotec, Naproxen,etc) - any herbal preparations - Aspirin or aspirin containing products Do not take any Vitamin E / multivitamins for 10-14 days before surgery You are allowed to take Tylenol if needed until the day of surgery. Continue all medications until the night prior to surgery: cholecalciferol, Vitamin D3, (VITAMIN D3) 50,000 unit cap capsule Take 1 capsule by mouth once each week. levothyroxine (SYNTHROID) 75 mcg tablet Take 75 mcg by mouth daily before breakfast. furosemide (LASIX) 20 mg tablet Take 20 mg by mouth once daily. potassium chloride (K-TAB) 10 mEq tablet Take 10 mEq by mouth twice daily. acetaminophen (TYLENOL) 325 mg tablet Take 2 tablets by mouth every 4 hours as needed for up to 1 dose. clonazePAM (KLONOPIN) 1 mg tablet Take 1 tablet by mouth three times daily as needed (anxiety). fluticasone-salmeterol (ADVAIR) 100-50 mcg/dose dsdv Inhale 1 Puff as instructed twice daily. PARoxetine (PAXIL) 10 mg tablet Take 1 tablet by mouth once daily. omeprazole 20 mg capsule Take 20 mg by mouth once daily. meclizine 25 mg Tab Take 25 mg by mouth every 6 hours as needed. albuterol 90 mcg/actuation Aero Inhale 1-2 Puffs as instructed four times daily as needed (Wheezing and shortness of Breath). MEDICATION INSTRUCTIONS: Day/Morning of Surgery: The following medications should be taken with sips of water: Klonopin Use your inhalers as needed / prescribed on day of surgery. Bring your inhaler with you to the hospital. If you have any questions or concerns regarding today's visit please do not hesitate to contact the [facility] center at [phone] or [phone], ext [phone]. Signature: Myron Koenig MD Date: May 17, 2018 Medications Discontinued During This Encounter hydrocortisone (ANUSOL-HC) 2.5 % rec* 5 Tu* 3 11/19/2015 05/17/2018 Class: Print RX Sig: Apply rectally to affected area every 3 to 4 hours. Disc: Course of therapy completed Encounter Status:Closed by MYRON KOENIG MD on 05/17/18 PROGRESS Observed: 05/17/2018 Status: COMPLETED Source: [place] 7:43 AM [facility] REPOSITORY HNO ID: [id number] Author: Isma Sheldon LPN Service: (none) Author Type: (none) Type: Progress Notes Filed: 05/17/2018 8:34 AM Note Text: Noreen Ingram is a 67 year old female here today for visit in [facility] Referring Surgeon: Dr. REED Date of Surgery: 05/19/2018 Planned Surgery/Procedure: LAPAROSCOPIC RPR PARAESOPHAGEAL HERNIA W/O FUNDOPLASTY W/ MESH Allergies have been reviewed and verified. They include the following: Morphine Social History Substance Use Topics - Smoking status: Never Smoker - Smokeless tobacco: Never Used - Alcohol use Yes Comment: occassional wine cooler during summer Medications reviewed and updated: Yes Isma Sheldon LPN HOSP Observed: 04/30/2018 Status: COMPLETED Source: [place] 12:00 AM [facility] REPOSITORY Patient Update (GENN) NOREEN INGRAM ([id number]) 1950 F [place] Date Time Provider Department 04/30/18 MARIA T REED During your visit today, we recorded the following information about you: Allergies As of Date: 04/30/2018 Noted Allergy Reaction MORPHINE 11/19/2015 14 - Other: See Comments Comments: Severe hypotension Date Reviewed: 04/22/2018 Reviewed by: Andriy Hanna) JOHN Arizmendi - Fully Assessed Reason for Visit: 05/19/2018 CURE [Other] Cmt: Laparoscopic paraesophageal hernia repair with EGD Reason For Visit History Recorded Primary Visit Diagnosis:Preoperative examination [Z01.818] Order(s):REFER FOR ADMIT INTERVIEW [2183853] Order #: [id number] CONSULT TO ANESTHESIOLOGY [9001] Order #: [id number]: 1 CONSULT TO [facility] [] Order #: [id number]: 1 ECG COMPLETE W INTERPRETATION [ECG01] Order #: [id number] FUTURE CONSULT TO INT MED-IMPACT [] Order #: [id number]: 1 CONSULT TO PATIENT EDUCATION [19991122] Order #: [id number]: 1 [facility] PT ED GENERAL SURG [21190705] Order #: [id number]. #:[id number]: 1 [facility] WHAT TO EXPECT DURING YOUR HOSPITAL STAY [] Order #: [id number]. #:[id number]: 1 [facility] PT ED GENERAL SURG [[id number]] Order #: [id number]. #:[id number]: 1 [facility] PT ED MISC [] Order #: [id number]. #:[id number]: 1 PREALBUMIN BLD [SQPREALB] Order #: [id number] FUTURE CBC + DIFF [SQCBCDIF] Order #: [id number] FUTURE COMP METABOLIC PANEL [SQCMP] Order #: [id number] FUTURE ACTIVATED PTT [SQPTT] Order #: [id number] FUTURE PROTHROMBIN TIME/PT [SQPT] Order #: [id number] FUTURE HGB A1C [CRHOA0D] Order #: [id number] FUTURE URINALYSIS WITH MICROSCOPIC [SQUAWMIC] Order #: [id number] FUTURE CONFIRM BLOOD TYPE [SQCONABO] Order #: [id number] FUTURE TYPE + SCREEN,30 DAY [KLPWFH97] Order #: [id number] FUTURE SURGICAL REQUEST - ELECTIVE [4866897] Order #: [id number]: 1 Prescriptions as of 04/30/2018 Sig: CHOLECALCIFEROL (VITAMIN D3) * Take 1 capsule by mouth once * LEVOTHYROXINE 75 MCG TABLET Take 75 mcg by mouth daily be* FUROSEMIDE 20 MG TABLET Take 20 mg by mouth once antonietta* POTASSIUM CHLORIDE ER 10 MEQ * Take 10 mEq by mouth twice da* ACETAMINOPHEN 325 MG TABLET Take 2 tablets by mouth every* CLONAZEPAM 1 MG TABLET Take 1 tablet by mouth three * FLUTICASONE 100 MCG-SALMETERO* Inhale 1 Puff as instructed t* PAROXETINE 10 MG TABLET Take 1 tablet by mouth once d* HYDROCORTISONE 2.5 % TOPICAL * Apply rectally to affected ar* OMEPRAZOLE 20 MG CAPSULE,RADHA* Take 20 mg by mouth twice andrey* MECLIZINE 25 MG TABLET Take 25 mg by mouth every 6 h* ALBUTEROL 90 MCG/ACTUATION AE* Inhale 1-2 Puffs as instructe* Problem List As Of Date 04/30/2018 Noted Resolved Anemia [D64.9] More... Shortness of breath [R06.02] INVALID FOR* More... KAY (iron deficiency anemia) [D50.9] INVALID FOR* Iron malabsorption [K90.9] INVALID FOR* Megaloblastic anemia due to vitamin B12 deficie*INVALID FOR* Paraesophageal hernia [K44.9] INVALID FOR* Mild persistent asthma without complication [J4*INVALID FOR* Hypothyroidism [E03.9] INVALID FOR* Vitamin D deficiency [E55.9] INVALID FOR* Obesity, Class III, BMI >= 40 [E66.01] INVALID FOR* Follow-up and Disposition History Recorded Encounter Status:Closed by MARIA T REED MD on 04/30/18 HOSP Observed: 04/30/2018 Status: COMPLETED Source: [place] 12:00 AM [facility] REPOSITORY Patient:Noreen Ingram MRN: <[id number]> Height:5' 3(1.6 m) Weight:219 lb 5.7 oz (99.5 kg) Outpatient Medications as of 05/19/18: cyanocobalamin, vitamin B-12, (VITAMIN B-12 INJECTION) cholecalciferol, Vitamin D3, (VITAMIN D3) 50,000 unit cap capsule levothyroxine (SYNTHROID) 75 mcg tablet furosemide (LASIX) 20 mg tablet potassium chloride (K-TAB) 10 mEq tablet acetaminophen (TYLENOL) 325 mg tablet clonazePAM (KLONOPIN) 1 mg tablet fluticasone-salmeterol (ADVAIR) 100-50 mcg/dose dsdv PARoxetine (PAXIL) 10 mg tablet omeprazole 20 mg capsule meclizine 25 mg Tab albuterol 90 mcg/actuation Aero Admission/Clinic Administered Medications as of 05/19/18: lactated ringers infusion ceFAZolin iv piggyback 2 g in D5W (iso-osmotic) 100 mL (ANCEF) Problem List: Anemia [D64.9] Shortness of breath [R06.02] KAY (iron deficiency anemia) [D50.9] Iron malabsorption [K90.9] Megaloblastic anemia due to vitamin B12 deficiency [D53.1] Paraesophageal hernia [K44.9] Mild persistent asthma without complication [J45.30] Hypothyroidism [E03.9] Vitamin D deficiency [E55.9] Obesity, Class III, BMI >= 40 [E66.01] Hiatal hernia [K44.9] Allergies: Morphine Date Verified: 05/19/18 Lab Values Lab Value Units Date High Low POTA* 4.2 mmol/L 05/17/2018 5.1 3.7 CORBY* 40.8 % 05/17/2018 46.0 36.0 Progress Notes ([facility]): Juliana Everett, RN, RN 05/17/2018 9:32 AM Signed ANESTHESIA PRE-OPERATIVE ASSESSMENT (PACE) SERVICE DATE: 05/17/2018 SERVICE TIME: 9:23 ASSESSMENT AND PLAN: Noreen Ingram is a 67 year old female scheduled for Laparoscopic paraesophageal hernia repair with EGD per Informed Consent in MAIN on 05/19/2018. PMH: Paraesophageal Hernia Slow Emergence: Slept into next day per patient BLLE: Lasix Chest pain: Epigastric, worse after eating Asthma: Advair, last used albuterol 05/15/2019 GERD: Controlled with Omeprazole Hypothyroid: Levothyroxine Megaloblastic Anemia: D/T Vit B12 deficiency. Vit b12 injections monthly Vertigo: Meclizine three times a week. Falls with vertigo. Dx 2017 Anxiety/Depression: Clonazepam, Paroxetine [facility]: 4 FC: 2-3 Short winded with walking distances, states do to asthma METS: Climb a flight of stairs or walk up a hill (5.50 METs) Patient denies any chest pain or undue shortness of breath with the above physical activity. ADDITIONAL DISCUSSION WITH PATIENT: Discussed with patient the possibilities of invasive monitoring, blood loss or possible need for blood transfusion. Patient WILL accept blood products. BLOOD WORK/PRODUCTS ORDERED: Type and Screen , Con ABO HISTORY OF CHRONIC PAIN: No PAIN MANAGEMENT OPTIONS: Final pain management plan will be discussed on the day of surgery. ANESTHETIC OPTIONS: Final anesthesia management options will be discussed on day of surgery. PRE-OP PLAN ORDERED: Not Applicable Patient Instructed: ? No solid food or non-clear liquids after midnight. Clear liquids allowed until two hours before scheduled arrival. ? Patient instructed to take the following medications with a sip of water: Advair, Albuterol, Clonazepam Vital Signs: BP 134/71 (BP Site: Left Arm, BP Position: Sitting, BP Cuff Size: Large Adult) Pulse 65 Ht 160 cm (5' 3) Wt 99.5 kg (219 lb 5.7 oz) LMP 08/26/2017 SpO2 96% BMI 38.86 kg/m? BMI 38.86 kg/(m2) Vital signs completed by: [facility] Weight acquired: per HANDP. Height acquired: per HANDP Airway Exam: MOUTH OPENING/TMJ: Full jaw ROM MICROGNATHIA/OVERBITE: No MALLAMPATI SCORE is CLASS III UPPER LIP BITE TEST: No lower teeth to perform DENTITION: Chipped, loose, and/or missing - Dentures upper and 7 teeth lower, chipped, broken THYROMENTAL DIST: WNL SHORT NECK: No NECK CIRCUMFERENCE >40 cm: Appears < than 40 CM NECK FLEX: Full ROM NECK EXTENSION: Full ROM AIRWAY HISTORY: No abnormal airway history ARKS AIRWAY DETAIL: N/A DATA: EKG READING: Confirmed - 01/29/2018 NSR To be repeated 05/17/2018 OTHER TESTS: Stress Test: Date: 07/29/2013 [facility] , Results: Negative for reversible ischemia EF 56% Echo: Date: 11/16/2015 , Results: - Technically difficult exam due to body habitus and suboptimal positioning. - Exam indication: Shortness of Breath - The left ventricle is normal in size. There is moderate upper septal left ventricular hypertrophy. Left ventricular systolic function is normal. EF = 65 ? 5% (2D biplane) Baseline left ventricular diastolic function is consistent with abnormal relaxation (stage 1). - The right ventricle is normal in size. Right ventricular systolic function is normal. - The left atrial cavity?is mildly dilated. - There are no significant valvular abnormalities. - The patient has not had a prior CC echocardiographic exam for comparison. Lab Value Units Date High Low HB No results within date range. HCT No results within date range. WBC No results within date range. PLT No results within date range. NA No results within date range. K No results within date range. GLUC No results within date range. BUN No results within date range. CREAT No results within date range. PTSEC No results within date range. INR No results within date range. APTT No results within date range. ALT No results within date range. AST No results within date range. TBILI No results within date range. TSH No results within date range. Lab Value Units Date High Low HCGQT No results within date range. UHCG No results within date range. HCG, BODY* No results within date range. ABORHD No results within date range. ABSCREEN No results within date range. HBA1C: Hemoglobin A1C (%) Date Value 01/26/2018 5.0 ) Patient accompanied by Sister Case Discussed with Dr Yoon OPTIMIZATION STATUS: Patient optimization pending Labs [facility] EKG [facility] SIGNATURE: Juliana Everett RN PATIENT NAME: Noreen Ingram DATE: May 17, 2018 TIME: 9:23 AM PAGER/CONTACT #: Progress Notes ([facility]): Isma Sheldon LPN 05/17/2018 8:34 AM Signed Noreen Ingram is a 67 year old female here today for visit in [facility] Referring Surgeon: Dr. REED Date of Surgery: 05/19/2018 Planned Surgery/Procedure: LAPAROSCOPIC RPR PARAESOPHAGEAL HERNIA W/O FUNDOPLASTY W/ MESH Allergies have been reviewed and verified. They include the following: Morphine Social History Substance Use Topics - Smoking status: Never Smoker - Smokeless tobacco: Never Used - Alcohol use Yes Comment: occassional wine cooler during summer Medications reviewed and updated: Yes Isma Koenig MD 05/17/2018 8:34 AM Signed HISTORY AND PHYSICAL EXAMINATION ([facility]) SERVICE DATE: 05/17/2018 SERVICE TIME: 8:04 AM PRIMARY CARE PHYSICIAN: Nancy Madison Jr, MD CHIEF COMPLAINT/HISTORY OF PRESENT ILLNESS: Ms. Ingram is a 67 year old female referred to me for preoperative evaluation. My final recommendations will be communicated back to the requesting physician/surgeon by the way of the shared medical record. Referring Surgeon: Dr. REED Date of Surgery: 05/19/2018 Planned Surgery/Procedure: LAPAROSCOPIC RPR PARAESOPHAGEAL HERNIA W/O FUNDOPLASTY W/ MESH Indication for Planned Surgery / Procedure: Pain; Location: Esophagus; Onset: Gradual; Duration: Chronic; Severity: Severe; Associated Symptoms: Food also feels like it's stuck Refer to Assessment section for details of any comorbidities. Patient is Able to Perform the Following Physical Activity: Goes to gym, [employer], 2x/week, gets on treadmill (5.0METS) Patient's functional class is II based on self-reported physical activity. Significant Anesthesia Considerations: Slow emergence. PAST MEDICAL/SURGICAL/FAMILY/SOCIAL HISTORY PAST MEDICAL HISTORY Diagnosis Date - Anemia - Arthritis rhuematoid - Hiatal hernia with gastroesophageal reflux disease and esophagitis 01/20/2017 - Hypertension - Morbid obesity (HCC) - Thyroid disease PAST SURGICAL HISTORY Procedure Laterality Date - APPENDECTOMY HX - CHOLECYSTECTOMY HX - COLONOSCOP W/ OR W/O BRSH SPEC 08/03/12 [facility] - COLONOSCOPY W/BX 11/19/2015 - EGD W/O BRSH SPECIMEN W/BX 01/20/2017 - EGD W/O OR W/BRUSH/WASH 11/29/12 [facility] - EGD W/O OR W/BRUSH/WASH 03/10/13 EGD FAMILY HISTORY Problem Relation Age of Onset - CHF [Other] [OTHER] Mother - suicide [Other] [OTHER] Father - Disc disease [Other] [OTHER] Brother - lupus [Other] [OTHER] Sister hypertension - brain tumor [Other] [OTHER] Maternal Grandmother SOCIAL HISTORYSocial History Marital status: Spouse name: Years of education: Number of children: 3 Occupational History Occupation Employer Comment [employer] Social History Main Topics Smoking status: Never Smoker Smokeless tobacco: Never Used Alcohol use: Yes Comment: occassional wine cooler during summer Drug use: No Sexual activity: Not Currently Other Topics Concern Blood Transfusions No MEDICATIONS/ALLERGIES Current Outpatient Prescriptions: cholecalciferol, Vitamin D3, (VITAMIN D3) 50,000 unit cap capsule Take 1 capsule by mouth once each week. Disp: 12 capsule Rfl: 1 levothyroxine (SYNTHROID) 75 mcg tablet Take 75 mcg by mouth daily before breakfast. Disp: Rfl: furosemide (LASIX) 20 mg tablet Take 20 mg by mouth once daily. Disp: Rfl: potassium chloride (K-TAB) 10 mEq tablet Take 10 mEq by mouth twice daily. Disp: Rfl: acetaminophen (TYLENOL) 325 mg tablet Take 2 tablets by mouth every 4 hours as needed for up to 1 dose. Disp: 30 tablet Rfl: 3 clonazePAM (KLONOPIN) 1 mg tablet Take 1 tablet by mouth three times daily as needed (anxiety). Disp: 30 tablet Rfl: 3 fluticasone-salmeterol (ADVAIR) 100-50 mcg/dose dsdv Inhale 1 Puff as instructed twice daily. Disp: 3 Inhaler Rfl: 3 PARoxetine (PAXIL) 10 mg tablet Take 1 tablet by mouth once daily. Disp: 30 tablet Rfl: 3 omeprazole 20 mg capsule Take 20 mg by mouth once daily. Disp: Rfl: meclizine 25 mg Tab Take 25 mg by mouth every 6 hours as needed. Disp: Rfl: albuterol 90 mcg/actuation Aero Inhale 1-2 Puffs as instructed four times daily as needed (Wheezing and shortness of Breath). Disp: 1 Inhaler Rfl: 0 No current facility-administered medications for this visit. ALLERGIES Allergen Reactions - Morphine Other: See Comments Severe hypotension REVIEW OF SYSTEMS General: Weight loss and was intentional, 70lbs Neuro: Pt has occasional, but increasing in frequency lately Respiratory: Asthma, well controlled Cardiovascular: Hypertension requiring meds GI: Abdominal pain, Dysphagia, Diarrhea : No history of UTI in past 6 weeks. No history of renal failure. Not currently on or requiring dialysis. No history of symptoms or problems. 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 Endocrine: Hypothyroidism Hematology: No history of bleeding or clotting disorder. No history of hematological symptoms or problems. Oncology: No history of CA metastasis, chemo within 30 days, or radiotherapy within 90 days. No history of oncological symptoms or problems. Psych: No history of psychiatric symptoms or problems. Skin: easy bruising PHYSICAL EXAM VITALS: BP 134/71 Pulse 65 Temp (Src) 97.6 (Oral) Ht 5' 3 (1.60m) Wt 219 lb 6.4 oz (99.5kg) SpO2 96% LMP 08/26/2017 BMI 38.87 kg/(m2). General: Alert and oriented, Obese Skin: Normal color, no rash, no lesions. HEENT: EOM, pupils equal, round and reactive. Cardiovascular: Normal S1 AND S2, no rubs, murmurs or gallops. No JVD. Pulse regular. Lungs: Normal breath sounds, no wheezes or crackles. Abdomen: Soft, non-tender, no rigidity. Extremities: No deformity, no edema or tenderness, no joint swelling or clubbing. Neurological: Normal cognition and motor skills. Pulses: Carotid and radial pulses normal +2. ASSESSMENT Ms. Ingram is a 67 year old female referred to me for preoperative evaluation. Patient has the following medical comorbidities which might affect the perioperative course: Diagnosis Date - Anemia - Arthritis rhuematoid - Hiatal hernia with gastroesophageal reflux disease and esophagitis 01/20/2017 - Hypertension - Morbid obesity (HCC) - Thyroid disease Patient's RCRI (Revised Cardiac Risk Index: CAD/CHF/Stroke or TIA/SCr>2/DM on Insulin/High Risk Surgery) score is 0 and is at low risk for major adverse cardiac events in the perioperative period. Diagnostic tests reviewed for today's visit: Most recent Echo Most recent stress test PLAN/RECOMMENDATIONS CARDIAC: Patient is at optimal cardiac condition for scheduled surgery / procedure. Patient is optimally prepared for surgery pending labs and EKG Patient Instructions: As per patient instructions section. I have discussed the above recommendations with the patient in detail, in earnest and lay terms, and provided a written summary of instructions as needed. We have discussed that no surgery is without risk, but that the goal of preoperative assessment is to optimize that risk, and that was clearly understood by the patient. I have given ample opportunity for the patient to ask questions, and answered all questions to their stated satisfaction. SIGNATURE: Myron Koenig MD PATIENT NAME: Noreen Ingram DATE: May 17, 2018 TIME: 8:04 AM Myron Koenig MD 05/17/2018 8:19 AM Signed [facility] Patient Instructions for Surgery FOOD INSTRUCTIONS: NO solid food or non-clear liquids for 8 hours prior to the arrival time for your surgery. Unless you are instructed otherwise, you are allowed to drink up to 12 ounces of clear liquids (e.g. water, black tea/coffee, fruit juice without pulp, Lisa Gifty, etc.) up until 2 hours prior to the arrival time for surgery. MEDICATION INSTRUCTIONS: Prior to Surgery: Do not take the following medications for 7 days prior to surgery: - any NSAID's (e.g. Motrin, Aleve, Arthrotec, Naproxen,etc) - any herbal preparations - Aspirin or aspirin containing products Do not take any Vitamin E / multivitamins for 10-14 days before surgery You are allowed to take Tylenol if needed until the day of surgery. Continue all medications until the night prior to surgery: cholecalciferol, Vitamin D3, (VITAMIN D3) 50,000 unit cap capsule Take 1 capsule by mouth once each week. levothyroxine (SYNTHROID) 75 mcg tablet Take 75 mcg by mouth daily before breakfast. furosemide (LASIX) 20 mg tablet Take 20 mg by mouth once daily. potassium chloride (K-TAB) 10 mEq tablet Take 10 mEq by mouth twice daily. acetaminophen (TYLENOL) 325 mg tablet Take 2 tablets by mouth every 4 hours as needed for up to 1 dose. clonazePAM (KLONOPIN) 1 mg tablet Take 1 tablet by mouth three times daily as needed (anxiety). fluticasone-salmeterol (ADVAIR) 100-50 mcg/dose dsdv Inhale 1 Puff as instructed twice daily. PARoxetine (PAXIL) 10 mg tablet Take 1 tablet by mouth once daily. omeprazole 20 mg capsule Take 20 mg by mouth once daily. meclizine 25 mg Tab Take 25 mg by mouth every 6 hours as needed. albuterol 90 mcg/actuation Aero Inhale 1-2 Puffs as instructed four times daily as needed (Wheezing and shortness of Breath). MEDICATION INSTRUCTIONS: Day/Morning of Surgery: The following medications should be taken with sips of water: Klonopin Use your inhalers as needed / prescribed on day of surgery. Bring your inhaler with you to the hospital. If you have any questions or concerns regarding today's visit please do not hesitate to contact the [facility] at [phone] or [phone], ext [phone]. Signature: Myron Koenig MD Date: May 17, 2018 PROGRESS Observed: 04/22/2018 Status: COMPLETED Source: [place] 11:57 AM [facility] REPOSITORY HNO ID: [id number] Author: Maria T Reed Service: (none) Author Type: Physician Type: Progress Notes Filed: 04/23/2018 12:48 PM Note Text: Patient is well known to me and initially had BMI of 50 with large paraesophageal hernia. She ultimately did not want bariatric surgery and did lose 77 pounds on her own. Her current BMI is 40. Her hernia is quite symptomatic and I think based on this effort we will go ahead and repair her hernia as she understands she's going to need to continue losing weight. Consent was obtained. PROGRESS Observed: 04/22/2018 Status: COMPLETED Source: [place] 11:37 AM [facility] REPOSITORY HNO ID: [id number] Author: Renetta Zheng Service: (none) Author Type: Resident Type: Progress Notes Filed: 04/23/2018 12:48 PM Note Text: Clinic Visit Noreen Ingram [id number] 66 year old female with morbid obesity Body mass index is 40.03 kg/m?. (previous BMI 51), HTN, hypothyroidism, asthma and a large type 3 paraesophageal hernia with the main complaint of dysphagia and nausea who was previously evaluated in clinic July 2017. At that time, she was referred to Bariatric Surgery due to her weight for combined weight loss procedure and hernia repair. Unfortunately, patient states she was unable to follow-up with scheduled visits due to transportation/travel issues and ultimately, she decided to forego evaluation for bariatric surgery. She returns today for re-evaluation for repair of her paraesophageal hernia. She has lost 77 pounds. Denies smoking. ECHO in 2016 with E F65% -Plan for laparoscopic paraesophageal hernia repair -Consent obtained in EMR Renetta Zheng MD General Surgery Pager: [phone] April 22, 2018 12:01 PM CNOV Observed: 04/22/2018 Status: COMPLETED Source: [place] 11:20 AM [facility] REPOSITORY Office Visit (RAY) INGRAMNOREEN LANDIS ([id number]) 1950 [place] Date Time Provider Department 04/22/18 11:20 AM MARIA T REED During your visit today, we recorded the following information about you: Temperature Pulse Respiration Blood pressure 98.7 degrees 64/minute 20/minute 96/56 Weight Height 102.5 kg 1.6 m Andriy Arizmendi MA, MA 04/22/2018 11:32 AM Signed What is the reason for your visit today? Est pt Who is your referring physician? Dr reed Are you having poor oral intake? NO Have you had unintentional weight loss of 15 lbs/7 Kg in the last 3-6 months?no Bowels: diarrhea Wound: clean AND dry Temperature: No Drains: No Renetta Zheng MD 04/23/2018 12:48 PM Signed Clinic Visit Noreen Ingram [id number] 66 year old female with morbid obesity Body mass index is 40.03 kg/m?. (previous BMI 51), HTN, hypothyroidism, asthma and a large type 3 paraesophageal hernia with the main complaint of dysphagia and nausea who was previously evaluated in clinic July 2017. At that time, she was referred to Bariatric Surgery due to her weight for combined weight loss procedure and hernia repair. Unfortunately, patient states she was unable to follow-up with scheduled visits due to transportation/travel issues and ultimately, she decided to forego evaluation for bariatric surgery. She returns today for re-evaluation for repair of her paraesophageal hernia. She has lost 77 pounds. Denies smoking. ECHO in 2016 with E F65% -Plan for laparoscopic paraesophageal hernia repair -Consent obtained in EMR Renetta Zheng MD General Surgery Pager: [phone] April 22, 2018 12:01 PM Maria T Reed MD 04/23/2018 12:48 PM Signed Patient is well known to me and initially had BMI of 50 with large paraesophageal hernia. She ultimately did not want bariatric surgery and did lose 77 pounds on her own. Her current BMI is 40. Her hernia is quite symptomatic and I think based on this effort we will go ahead and repair her hernia as she understands she's going to need to continue losing weight. Consent was obtained. Referring Provider: NANCY MADISON JR [[id number]] Allergies As of Date: 04/22/2018 Noted Allergy Reaction MORPHINE 11/19/2015 14 - Other: See Comments Comments: Severe hypotension Date Reviewed: 04/22/2018 Reviewed by: Andriy (John) JOHN Arizmendi - Fully Assessed Reason for Visit: Established Patient [175] Primary Visit Diagnosis:Hiatal hernia [K44.9] Other Visit Diagnosis:Obesity, Class III, BMI 40-49.9 (morbid obesity) ([facility]) [E66.01] Prescriptions as of 04/22/2018 Sig: CHOLECALCIFEROL (VITAMIN D3) * Take 1 capsule by mouth once * LEVOTHYROXINE 75 MCG TABLET Take 75 mcg by mouth daily be* FUROSEMIDE 20 MG TABLET Take 20 mg by mouth once antonietta* POTASSIUM CHLORIDE ER 10 MEQ * Take 10 mEq by mouth twice da* ACETAMINOPHEN 325 MG TABLET Take 2 tablets by mouth every* CLONAZEPAM 1 MG TABLET Take 1 tablet by mouth three * FLUTICASONE 100 MCG-SALMETERO* Inhale 1 Puff as instructed t* PAROXETINE 10 MG TABLET Take 1 tablet by mouth once d* HYDROCORTISONE 2.5 % TOPICAL * Apply rectally to affected ar* OMEPRAZOLE 20 MG CAPSULE,RADHA* Take 20 mg by mouth twice andrey* MECLIZINE 25 MG TABLET Take 25 mg by mouth every 6 h* ALBUTEROL 90 MCG/ACTUATION AE* Inhale 1-2 Puffs as instructe* Problem List As Of Date 04/22/2018 Noted Resolved Anemia [D64.9] More... Shortness of breath [R06.02] INVALID FOR* More... KAY (iron deficiency anemia) [D50.9] INVALID FOR* Iron malabsorption [K90.9] INVALID FOR* Megaloblastic anemia due to vitamin B12 deficie*INVALID FOR* Paraesophageal hernia [K44.9] INVALID FOR* Mild persistent asthma without complication [J4*INVALID FOR* Hypothyroidism [E03.9] INVALID FOR* Vitamin D deficiency [E55.9] INVALID FOR* Obesity, Class III, BMI >= 40 [E66.01] INVALID FOR* Visit Notes: >> Andriy (John) MilenaJOHN pedraza Kaylin Apr 22, 2018 11:31 AM Status: Signed What is the reason for your visit today? Est pt Who is your referring physician? Dr reed Are you having poor oral intake? NO Have you had unintentional weight loss of 15 lbs/7 Kg in the last 3-6 months?no Bowels: diarrhea Wound: clean AND dry Temperature: No Drains: No Encounter Status:Closed by MARIA T REED MD on 04/23/18 CNNURSE Observed: 01/29/2018 Status: COMPLETED Source: [place] 3:45 PM [facility] REPOSITORY Nurse Visit (FAMPWS) NOREEN INGRAM ([id number]) 1950 F [facility] Date Time Provider Department 01/29/18 3:45 PM IN NURSE FAMPWS During your visit today, we recorded the following information about you: Laura Durbin LPN 01/29/2018 3:21 PM Signed Patient presents for EKG per Dr Willis. Denies any problems at this time. Laura Durbin LPN Referring Provider: JOSH WILLIS [[id number]] Allergies As of Date: 01/29/2018 Noted Allergy Reaction MORPHINE 11/19/2015 14 - Other: See Comments Comments: Severe hypotension Date Reviewed: 01/08/2018 Reviewed by: Mackenzie Mosqueda (Ale) ALE Mcgill - Fully Assessed Reason for Visit: EKG [793] Primary Visit Diagnosis:Morbid obesity (HCC) [E66.01] Prescriptions as of 01/29/2018 Sig: LEVOTHYROXINE 75 MCG TABLET Take 75 mcg by mouth daily be* FUROSEMIDE 20 MG TABLET Take 20 mg by mouth once antonietta* POTASSIUM CHLORIDE ER 10 MEQ * Take 10 mEq by mouth twice da* ACETAMINOPHEN 325 MG TABLET Take 2 tablets by mouth every* CLONAZEPAM 1 MG TABLET Take 1 tablet by mouth three * FLUTICASONE 100 MCG-SALMETERO* Inhale 1 Puff as instructed t* PAROXETINE 10 MG TABLET Take 1 tablet by mouth once d* HYDROCORTISONE 2.5 % TOPICAL * Apply rectally to affected ar* OMEPRAZOLE 20 MG CAPSULE,RADHA* Take 20 mg by mouth twice andrey* MECLIZINE 25 MG TABLET Take 25 mg by mouth every 6 h* ALBUTEROL 90 MCG/ACTUATION AE* Inhale 1-2 Puffs as instructe* Problem List As Of Date 01/29/2018 Noted Resolved Anemia [D64.9] More... Shortness of breath [R06.02] INVALID FOR* More... KAY (iron deficiency anemia) [D50.9] INVALID FOR* Iron malabsorption [K90.9] INVALID FOR* Megaloblastic anemia due to vitamin B12 deficie*INVALID FOR* Paraesophageal hernia [K44.9] INVALID FOR* Mild persistent asthma without complication [J4*INVALID FOR* Hypothyroidism [E03.9] INVALID FOR* Encounter Status:Closed by LAURA DURBIN LPN on 01/29/18 PROGRESS Observed: 01/29/2018 Status: COMPLETED Source: [place] 3:20 PM [facility] REPOSITORY HNO ID: [id number] Author: Laura Durbin LPN Service: (none) Author Type: (none) Type: Progress Notes Filed: 01/29/2018 3:21 PM Note Text: Patient presents for EKG per Dr Willis. Denies any problems at this time. Laura Durbin LPN CBC AND DIFFERENTIAL Collected: 01/26/2018 Status: F Source: [place] 2:22 PM [facility] REPOSITORY TYPE CODE TESTS RESULT OUT OF REFERENCE UNITS RANGE LAB WBC 3.70-11.00 k/uL WBC 5.96 LAB RBC 3.90-5.20 m/uL RBC 4.07 LAB HGB 11.5-15.5 g/dL Hemoglobin 14.1 LAB HCT 36.0-46.0 % Hematocrit 43.6 LAB MCV 80.0-100.0 fL MCV High 107.1 LAB MCH 26.0-34.0 pG MCH High 34.6 LAB MCHC 30.5-36.0 g/dL MCHC 32.3 LAB RDWCV 11.5-15.0 % RDW-CV 13.4 LAB PLTCT 150-400 k/uL Platelet Count 261 LAB MPV 9.0-12.7 fL MPV 9.7 LAB ANEUT % Neut% 62.7 LAB AANEUT 1.45-7.50 k/uL Abs Neut 3.72 LAB ALYMP % Lymph% 24.7 LAB AALYMP 1.00-4.00 k/uL Abs Lymph 1.47 LAB AMONO % Clinton% 6.4 LAB AAMONO <0.87 k/uL Abs Clinton 0.38 LAB AEOS % Eosin% 5.2 LAB AAEOS <0.46 k/uL Abs Eosin 0.31 LAB ABASO % Baso% 1.0 LAB AABASO <0.11 k/uL Abs Baso 0.06 LAB AUNRBC 0 /100 WBC NRBCs 0.0 LAB ABNRBC <0.01 k/uL Absolute nRBC <0.01 LAB DTYP DTYPE Auto Diff Performed By: #### CBCDIF, CMP, LIPB, FERR, IRON, TSH, B12, SERFOL, PTHI, HBA1C, VITD, MMA #### [facility] [address] [place], [place] [address] #### B1VIT #### [facility] [address] [place] [address] [phone] COMP METABOLIC PANEL Collected: 01/26/2018 Status: F Source: [place] 2:22 PM [facility] REPOSITORY TYPE CODE TESTS RESULT OUT OF REFERENCE UNITS RANGE LAB TP 6.3-8.0 g/dL Protein, Total 7.8 LAB ALB 3.9-4.9 g/dL Albumin 4.6 LAB CA 8.5-10.2 mg/dL Calcium, Total 9.2 LAB TBIL 0.2-1.3 mg/dL Bilirubin, Total 0.5 LAB ALKP 32-117 U/L Alkaline Phosphatase 43 LAB AST 13-35 U/L AST 21 LAB GLU 74-99 mg/dL Glucose 85 Result Comment: The [place] Diabetes Association (ADA) provides guidance for cutoff values for fasting glucose and random glucose. The ADA defines fasting as no caloric intake for at least 8 hours. Fas ting plasma glucose results between 100 to 125 mg/dL indicate increased risk for diabetes (prediabetes). Fasting plasma glucose results greater than or equal to 126 mg/dL meet the criteria for diagnosis of diabetes. In the absence of unequivocal hyperglycemia, results should be confirmed by repeat testing. In a patient with classic symptoms of hyperglycemia or hyperglycemic crisis, random plasma glucose results greater than or equal to 200 mg/dL meet the criteria for diagnosis of diabetes. Reference: Standards of Medical Care in Diabetes 2016, [place] [employer]. Diabetes Care. 2016.39(Suppl 1). LAB BUN 7-21 mg/dL BUN 19 LAB CRET 0.58-0.96 mg/dL Creatinine High 1.07 LAB NA 136-144 mmol/L Sodium 144 LAB K 3.7-5.1 mmol/L Potassium 4.1 LAB CL 97-105 mmol/L Chloride 104 LAB CO2 22-30 mmol/L CO2 23 LAB AGAP 9-18 mmol/L Anion Gap 17 LAB ALT 7-38 U/L ALT 17 LAB GFRAA eGFR- Amer. >60 LAB GFRNAA . eGFR-All Other Races 51 Result Comment: eGFR (Estimated GFR) Units of measure: mL/min/1.73 meters squared eGFR is derived from the reexpressed MDRD Study equation using the following parameters: serum creatinine, age, gender and race. The creatinine assay has been calibrated to be traceable to IDMS. An eGFR <60 mL/min/1.73m2 for >3 months is consistent with chronic kidney disease. Refer to KDOQI guidelines for clinical interpretation. In patients with unstable renal function, e.g. those with acute kidney injury, the eGFR may not accurately reflect actual GFR. Performed By: #### CBCDIF, CMP, LIPB, FERR, IRON, TSH, B12, SERFOL, PTHI, HBA1C, VITD, MMA #### [facility] [address] [place], [place] [address] #### B1VIT #### [facility] [address] [place] [address] [phone] LIPID PANEL, BASIC Collected: 01/26/2018 Status: F Source: [place] 2:22 PM [facility] REPOSITORY TYPE CODE TESTS RESULT OUT OF REFERENCE UNITS RANGE LAB CHOL <200 mg/dL Cholesterol High 228 Result Comment: <200 mg/dL, Desirable 200-239 mg/dL, Borderline high >239 mg/dL, High LAB TRIGLY <150 mg/dL Triglyceride High 160 Result Comment: <150 mg/dL, Normal 150-199 mg/dL, Borderline high 200-499 mg/dL, High >499 mg/dL, Very high LAB HDL >39 mg/dL HDL-Cholesterol 44 Result Comment: 40-59 mg/dL, Acceptable >59 mg/dL, High: Negative risk factor for coronary heart disease <40 mg/dL, Low: Positive risk factor for coronary heart disease LAB LDL <100 mg/dL LDL-Cholesterol High 152 Result Comment: <100 mg/dL, Optimal 100-129 mg/dL, Near optimal/above optimal 130-159 mg/dL, Borderline high 160-189 mg/dL, High >189 mg/dL, Very high Secondary prevention optimal LDL Cholesterol levels are recommended to be < 70 mg/dL LAB NONHDL <130 mg/dL Non HDL High Cholesterol 184 Result Comment: <130 mg/dL, Optimal 130-159 mg/dL, Near optimal/above optimal 160-189 mg/dL, Borderline high 190-219 mg/dL, High >219 mg/dL, Very high Secondary prevention optimal non HDL Cholesterol levels are recommended to be < 100 mg/dL LAB FT hrs Fasting Time 0 LAB VLDL <30 mg/dL High VLDL Cholesterol 32 LAB TCHDL <5.10 High TC:HDL Ratio 5.18 LAB LDLHDL <2.54 High LDL:HDL Ratio 3.45 Result Comment: Reference: 1. National Cholesterol Education Program ATP III Guideline At-A-Glance Quick Desk Reference: National Heart, Lung, and Blood [place]. National Institutes of Health. 2001: NIH Publication No. 01-3305. 2. An International Atherosclerosis Society position paper: global recommendations for the management of dyslipidemia: executive summary, Atherosclerosis. 2014: 232(2):410-413. Performed By: #### CBCDIF, CMP, LIPB, FERR, IRON, TSH, B12, SERFOL, PTHI, HBA1C, VITD, MMA #### [facility] [address] [place] [address] #### B1VIT #### [facility] [address] [place] [address] [phone] FERRITIN Collected: 01/26/2018 Status: F Source: [place] 2:22 PM [facility] REPOSITORY TYPE CODE TESTS RESULT OUT OF REFERENCE UNITS RANGE LAB FERR 14.7-205.1 ng/mL Ferritin 107.2 Performed By: #### CBCDIF, CMP, LIPB, FERR, IRON, TSH, B12, SERFOL, PTHI, HBA1C, VITD, MMA #### [place] [phone] #### B1VIT #### [facility] [address] [place] [address] [phone] IRON AND TIBC Collected: 01/26/2018 Status: F Source: [place] 2:22 PM [facility] REPOSITORY TYPE CODE TESTS RESULT OUT OF REFERENCE UNITS RANGE LAB IRN 41-186 ug/dL Iron 121 LAB TIBC 232-386 ug/dL TIBC 343 LAB SAT 15-57 % Transferrin Saturatn 35 Performed By: #### CBCDIF, CMP, LIPB, FERR, IRON, TSH, B12, SERFOL, PTHI, HBA1C, VITD, MMA #### [place] [address] #### B1VIT #### [facility] [address] [place] [address] [phone] TSH Collected: 01/26/2018 Status: F Source: [place] 2:22 PM [facility] REPOSITORY TYPE CODE TESTS RESULT OUT OF RANGE REFERENCE UNITS LAB TSH 0.400-5.500 uU/mL TSH 2.500 Performed By: #### CBCDIF, CMP, LIPB, FERR, IRON, TSH, B12, SERFOL, PTHI, HBA1C, VITD, MMA #### [place] [address] #### B1VIT #### [facility] [address] [place] [address] [phone] VITAMIN B12 Collected: 01/26/2018 Status: F Source: [place] 2:22 PM [facility] REPOSITORY TYPE CODE TESTS RESULT OUT OF REFERENCE UNITS RANGE LAB B12 232-1245 pg/mL Vitamin B12 700 Performed By: #### CBCDIF, CMP, LIPB, FERR, IRON, TSH, B12, SERFOL, PTHI, HBA1C, VITD, MMA #### [facility] [address] [place] [phone] #### B1VIT #### [address] [address] [phone] FOLATE, SERUM Collected: 01/26/2018 Status: F Source: [place] 2:22 PM [facility] REPOSITORY TYPE CODE TESTS RESULT OUT OF REFERENCE UNITS RANGE LAB SERFOL >4.7 ng/mL Folate, 5.6 Serum Performed By: #### CBCDIF, CMP, LIPB, FERR, IRON, TSH, B12, SERFOL, PTHI, HBA1C, VITD, MMA #### [place] [phone] #### B1VIT #### [place] [address] [phone] PTH, INTACT Collected: 01/26/2018 Status: F Source: [place] 2:22 PM [facility] REPOSITORY TYPE CODE TESTS RESULT OUT OF REFERENCE UNITS RANGE LAB PTH 15-65 pg/mL High PTH, Intact 68 Performed By: #### CBCDIF, CMP, LIPB, FERR, IRON, TSH, B12, SERFOL, PTHI, HBA1C, VITD, MMA #### [place] [phone] #### B1VIT #### [address] [address] [phone] HEMOGLOBIN A1C Collected: 01/26/2018 Status: F Source: [place] 2:22 PM [facility] REPOSITORY TYPE CODE TESTS RESULT OUT OF REFERENCE UNITS RANGE LAB HGBA1C 4.3-5.6 % Hemoglobin A1c 5.0 LAB HBA0 mg/dL Est. Average Glucose 97 Result Comment: eAG: (Estimated average glucose) is a calculated value from HgbA1c and is customer response representative of the average blood glucose level in the last 2-3 month period. Performed By: #### CBCDIF, CMP, LIPB, FERR, IRON, TSH, B12, SERFOL, PTHI, HBA1C, VITD, MMA #### [place] [address] [place] [phone] #### B1VIT #### [address] [address] [phone] VITAMIN D 25 HYDROXY Collected: 01/26/2018 Status: F Source: [place] 2:22 PM [facility] REPOSITORY TYPE CODE TESTS RESULT OUT OF REFERENCE UNITS RANGE LAB VITD 31.0-80.0 ng/mL Low Vitamin D 25 13.4 Hydroxy Result Comment: Classification of 25 [place] Vitamin D status: Insufficiency/Moderate Deficiency: < or = 30 ng/mL Sufficiency/Optimal Levels: 31 to 80 ng/mL Toxicity: > 100 ng/mL Test performed by chemiluminescent immunoassay. Performed By: #### CBCDIF, CMP, LIPB, FERR, IRON, TSH, B12, SERFOL, PTHI, HBA1C, VITD, MMA #### [place] [phone] #### B1VIT #### [address] [address] [phone] METHYLMALONIC ACID Collected: 01/26/2018 Status: F Source: [place] 2:22 [facility] REPOSITORY TYPE CODE TESTS RESULT OUT OF REFERENCE UNITS RANGE LAB MMA 79-376 nmol/L Methylmalonic Acid 185 Result Comment: This test was developed and its performance characteristics determined by [facility]'s [facility] Pathology and Laboratory Medicine [place] ([facility]). It has not been cleared or approved by the FDA. -[facility] is regulated under CLIA as qualified to perform high-complexity testing. This test is used for clinical purposes. It should not be regarded as investigational or for research. Performed By: #### CBCDIF, CMP, LIPB, FERR, IRON, TSH, B12, SERFOL, PTHI, HBA1C, VITD, MMA #### [place] [address] [place] [phone] #### B1VIT #### [facility] [address] [place] [address] [phone] VITAMIN B1,WHOLE BLD Collected: 01/26/2018 Status: F Source: [place] 2:22 PM [facility] REPOSITORY TYPE CODE TESTS RESULT OUT OF REFERENCE UNITS RANGE LAB VITB1 70-180 nmol/L Vitamin B1 90 Whole Bld Result Comment: (NOTE) INTERPRETIVE INFORMATION: Vitamin B1, Whole Blood This assay measures the concentration of thiamine diphosphate (TDP), the primary active form of vitamin B1. Approximately 90 percent of vitamin B1 present in whole blood is TDP. Thiamine and thiamine monophosphate, which comprise the remaining 10 percent, are not measured. Test developed and characteristics determined by [facility]. See Compliance Statement B: [facility] Performed by [facility], [address] [place] [id number] [email or web address], Barry Nelson MD, Lab. Director Performed By: #### CBCDIF, CMP, LIPB, FERR, IRON, TSH, B12, SERFOL, PTHI, HBA1C, VITD, MMA #### [facility] [address] [place] [address] #### B1VIT #### [address] [address] [phone] PROGRESS Observed: 01/22/2018 Status: COMPLETED Source: [place] 12:45 PM [facility] REPOSITORY HNO ID: [id number] Author: Cinda Lovett Service: (none) Author Type: Physician Type: Progress Notes Filed: 01/22/2018 2:52 PM Note Text: [facility] Progress Note 01/22/2018 Billing code: [id number]/Charan Patient did not attend, cancel, or reschedule this appointment. GET SET Session #1 Per protocol, Sessions #2, #3, and #4 will be cancelled and patient will need to scheduled for the next offering of this group. Cinda Lovett, PhD Clinical Health Psychologist COURTNEY Observed: 01/22/2018 Status: COMPLETED Source: [place] 11:00 AM [facility] REPOSITORY Office Visit ([facility]PS[facility]) NOREEN INGRAM ([id number]) 1950 [place] Date Time Provider Department 01/22/18 11:00 AM CINDA LOVETT [facility] During your visit today, we recorded the following information about you: Cinda Lovett, PhD 01/22/2018 2:52 PM Signed [facility] Progress Note 01/22/2018 Billing code: [id number]/Charan Patient did not attend, cancel, or reschedule this appointment. GET SET Session #1 Per protocol, Sessions #2, #3, and #4 will be cancelled and patient will need to scheduled for the next offering of this group. Cinda Lovett, PhD Clinical Health Psychologist Referring Provider: VIDHYA MARS [[id number]] Allergies As of Date: 01/22/2018 Noted Allergy Reaction MORPHINE 11/19/2015 14 - Other: See Comments Comments: Severe hypotension Date Reviewed: 01/08/2018 Reviewed by: Mackenzie Mosqueda (Ale) ALE Mcgill - Fully Assessed Primary Visit Diagnosis:NO SHOW Prescriptions as of 01/22/2018 Sig: LEVOTHYROXINE 75 MCG TABLET Take 75 mcg by mouth daily be* FUROSEMIDE 20 MG TABLET Take 20 mg by mouth once antonietta* POTASSIUM CHLORIDE ER 10 MEQ * Take 10 mEq by mouth twice da* ACETAMINOPHEN 325 MG TABLET Take 2 tablets by mouth every* CLONAZEPAM 1 MG TABLET Take 1 tablet by mouth three * FLUTICASONE 100 MCG-SALMETERO* Inhale 1 Puff as instructed t* PAROXETINE 10 MG TABLET Take 1 tablet by mouth once d* HYDROCORTISONE 2.5 % TOPICAL * Apply rectally to affected ar* OMEPRAZOLE 20 MG CAPSULE,RADHA* Take 20 mg by mouth twice andrey* MECLIZINE 25 MG TABLET Take 25 mg by mouth every 6 h* ALBUTEROL 90 MCG/ACTUATION AE* Inhale 1-2 Puffs as instructe* Problem List As Of Date 01/22/2018 Noted Resolved Anemia [D64.9] More... Shortness of breath [R06.02] INVALID FOR* More... KAY (iron deficiency anemia) [D50.9] INVALID FOR* Iron malabsorption [K90.9] INVALID FOR* Megaloblastic anemia due to vitamin B12 deficie*INVALID FOR* Paraesophageal hernia [K44.9] INVALID FOR* Mild persistent asthma without complication [J4*INVALID FOR* Hypothyroidism [E03.9] INVALID FOR* Encounter Status:Closed by CINDA LOVETT PHD on 01/22/18 XR CHEST 2 VIEWS Observed: 01/13/2018 Status: F Source: [facility] 9:56 AM [facility] EMERGENCY DEPARTMENT REPOSITORY ORIGINAL XR CHEST 2 VIEWS CLINICAL STATEMENT: Chest Pain COMPARISON: [11/10/2016 FINDINGS: The heart and mediastinal structures are normal . The lungs are clear except for some calcified granulomas and the pulmonary vasculature is normal. There are no pleural effusions. The bones are unremark able. There is a moderate hiatal hernia. IMPRESSION: No acute thoracic process Interpreted By: Maria T De Leon MD Preliminary Report By: Maria T De Leon MD Electronically Signed By: Maria T De Leon MD Dictated Date: 01/13/2018 10:06:45 AM Prelim Date: 01/13/2018 10:06:45 AM Sign Date: 01/13/2018 10:07:12 AM CBC Collected: 01/13/2018 Status: F Source: [facility] 9:32 AM [facility] EMERGENCY DEPARTMENT REPOSITORY TYPE CODE TESTS RESULT OUT OF REFERENCE UNITS RANGE LAB WBC(LOINC) 4.60-10.80 10 3/mcL WBC 6.30 LAB RBCCT(LOINC 4.20-5.40 10 6/mcL ) Low RBC 3.65 LAB HGB(LOINC) 12.0-16.0 G/dL Hgb 13.0 LAB HCT(LOINC) 37.0-47.0 % Hct 37.2 LAB MCV(LOINC) 80.0-94.0 fL High MCV 102.0 LAB MCH(LOINC) 27.0-31.2 pg High MCH 35.5 LAB MCHC(LOINC) 33.0-37.0 G/dL MCHC 34.8 LAB RDW(LOINC) 11.5-14.5 % RDW 13.1 LAB PLT(LOINC) 130-400 10 3/mcL Platelet 242 LAB MPV(LOINC) 7.4-10.4 fL Low MPV 7.3 Performed By: #### CBC, ADIFF, ANEU, TROP, CMP, GFR #### [address] [address] .AUTO DIFF Collected: 01/13/2018 Status: F Source: [facility] 9:32 AM [facility] EMERGENCY DEPARTMENT REPOSITORY TYPE CODE TESTS RESULT OUT OF REFERENCE UNITS RANGE LAB NICOLAS(LOINC) 37.0-80.0 % Neutrophil % 61.9 LAB LYM(LOINC) 10.0-50.0 % Lymphocyte % 23.6 LAB MON(LOINC) 1.7-13.0 % Monocyte % 8.9 LAB EO(LOINC) 0.0-7.0 % Eosinophil % 4.5 LAB BAS(LOINC) 0.0-2.5 % Basophil % 1.1 LAB ABLYM(LOIN 0.77-3.85 10 3/mcL C) Lymphocyte, 1.50 Absolute LAB LEANNE(LOINC 0.15-1.00 10 3/mcL ) Monocyte, 0.60 Absolute LAB AEOS(LOINC 0.00-0.40 10 3/mcL ) Eosinophil, 0.30 Absolute LAB ABAS(LOINC 0.00-0.19 10 3/mcL ) Basophil, 0.10 Absolute Performed By: #### CBC, ADIFF, ANEU, TROP, CMP, GFR #### [address] [address] .NEUABS Collected: 01/13/2018 Status: F Source: [facility] 9:32 AM [facility] EMERGENCY DEPARTMENT REPOSITORY TYPE CODE TESTS RESULT OUT OF REFERENCE UNITS RANGE LAB ANEU(LOINC) 2.85-6.16 10 3/mcL Neutrophil, 3.90 Absolute Performed By: #### CBC, ADIFF, ANEU, TROP, CMP, GFR #### [address] [address] TROP Collected: 01/13/2018 Status: F Source: [facility] 9:32 AM [facility] EMERGENCY DEPARTMENT REPOSITORY TYPE CODE TESTS RESULT OUT OF REFERENCE UNITS RANGE LAB TROP(LOINC) 0.00-0.30 ng/mL Troponin <0.30 Result Comment: Below measuring range >=0.30 Consistent with cardiac damage, increased clinical risk and possibility of myocardial infarction. Serial measurements, clinical history, appropriate symptoms and/or ECG changes may help assess possibility of IN. *Other non-acute coronary syndrome conditions such as CHF, myocarditis, pulmonary emboli, sepsis and cardiac surgery could result in myocardial damage and increased troponin levels. Performed By: #### CBC, ADIFF, ANEU, TROP, CMP, GFR #### [id number] [place], [place] [address] CMP Collected: 01/13/2018 Status: F Source: [facility] 9:32 AM [facility] REPOSITORY TYPE CODE TESTS RESULT OUT OF REFERENCE UNITS RANGE LAB 1547-9 80-115 mg/dL GLUCOSE 103 LAB NA(LOINC) 136-146 mEq/L Sodium Level 142 LAB K(LOINC) 3.5-5.1 mEq/L Potassium Level 3.7 LAB CL(LOINC) 98-107 mEq/L Chloride High 108 LAB CO2(LOINC) 23-31 mEq/L CO2 26 LAB EBAL(LOINC mEq/L ) Electrolyte Balance 8.0 LAB BUN(LOINC) 7.0-18.0 mg/dL BUN 16.7 LAB CRE(LOINC) 0.6-1.2 mg/dL Creatinine Lvl (s) 0.9 LAB BC(LOINC) 7-27 ratio BUN/Creatinine 19 Ratio LAB CA(LOINC) 8.4-10.2 mg/dL Calcium Lvl 9.0 LAB PROT(LOINC 6.0-8.3 G/dL ) Total Protein 6.8 LAB ALB(LOINC) 3.4-4.8 G/dL Albumin Level 3.9 LAB GLB(LOINC) G/dL Globulin 2.9 LAB AG(LOINC) 1.1-2.5 ratio A/G Ratio 1.3 LAB BILT(LOINC 0.2-1.0 mg/dL ) Bili Total 0.3 LAB AP(LOINC) 40-135 IU/L Alk Phos 43 LAB AST(LOINC) 10-40 IU/L AST/SGOT 17 LAB ALT(LOINC) 10-35 IU/L ALT/SGPT 15 Performed By: #### CBC, ADIFF, ANEU, TROP, CMP, GFR #### [id number] [place], [place] [address] .GFR Collected: 01/13/2018 Status: F Source: [facility] 9:32 AM [facility] EMERGENCY DEPARTMENT REPOSITORY TYPE CODE TESTS RESULT OUT OF REFERENCE UNITS RANGE LAB GFRAA(LOINC ml/min/1.73 ) sqm GFR 72 [place] Result Comment: GFR Population mean for , Non- Americans Ages 20-29 = 116 mL/min/1.73 sq.m. Ages 30-39 = 107 mL/min/1.73 sq.m. Ages 40-49 = 99 mL/min/1.73 sq.m. Ages 50-59 = 93 mL/min/1.73 sq.m. Ages 60-69 = 85 mL/min/1.73 sq.m. Ages 70+ = 75 mL/min/1.73 sq.m. Chronic Kidney Disease: Less than 60 mL/min/1.73 square meters End Stage Renal Disease: Less than 15 mL/min/1.73 square meters LAB GFRNO(LOINC) ml/min/1.73sqm GFR Non- 60 Result Comment: GFR Population mean for , Non- Americans Ages 20-29 = 116 mL/min/1.73 sq.m. Ages 30-39 = 107 mL/min/1.73 sq.m. Ages 40-49 = 99 mL/min/1.73 sq.m. Ages 50-59 = 93 mL/min/1.73 sq.m. Ages 60-69 = 85 mL/min/1.73 sq.m. Ages 70+ = 75 mL/min/1.73 sq.m. Chronic Kidney Disease: Less than 60 mL/min/1.73 square meters End Stage Renal Disease: Less than 15 mL/min/1.73 square meters Performed By: #### CBC, ADIFF, ANEU, TROP, CMP, GFR #### [place] [address] [place], [place] [address] LIP Collected: 01/13/2018 Status: F Source: [facility] 9:32 AM [facility] EMERGENCY DEPARTMENT REPOSITORY TYPE CODE TESTS RESULT OUT OF REFERENCE UNITS RANGE LAB LIP(LOINC) 8-78 IU/L Lipase Level 48 Performed By: #### LIP #### [place] [id number] [place], [place] [address] PROGRESS Observed: 01/08/2018 Status: COMPLETED Source: [place] 9:20 AM [facility] REPOSITORY HNO ID: [id number] Author: Vidhya Mars Service: (none) Author Type: Physician Type: Progress Notes Filed: 01/08/2018 9:22 AM Note Text: [facility] Patient: Noreen Ingram Date: 07/31/2016 Received records from patient's PCP, Dr. Nancy Madison (Address: [address], Phone: [phone], ). Records indicate that patient is being seen as needed (First appointment: 01/25/13, Last seen: 10/22/17). The current treatment plan includes medication. Current medications include: Paxil 10 mg and Klonopin 1 mg bid prn. Provider stated that there is no known active or historical substance abuse or dependence. Provider has no knowledge of any psychiatric hospitalizations, suicidal ideation/attempts, or chemical dependency treatment in the past year for this patient. Provider reports that patient is adherent to treatment recommendations, and provider is willing to follow up with patient before and after weight loss surgery. At the current time, patient appears to be stable on current treatment regimen and there do not appear to be any psychiatric contraindications for weight loss surgery. These records have been sent to scanning. Plan: Continue to follow patient as he/she prepares for bariatric surgery. Patient needs to complete Get Set. Insurance letter not completed at this time. Patient needs to complete additional preparation as outlined above. Vidhya Mars, Ph.D. [facility] Director of Behavioral Services CNCNPATED Observed: 12/28/2017 Status: COMPLETED Source: [place] 2:00 PM [facility] REPOSITORY Education (GENBMI) NOREEN INGRAM ([id number]) 1950 F [facility] Date Time Provider Department 12/28/17 2:00 PM KAYLA HENRY (FABIAN) GENBMI Reason for Visit: Assessment [673] Patient Education [91] Progress Notes: Kayla Henry, RD 12/28/2017 5:06 PM Signed [facility] Nutritional Initial Assessment Patient states reason for visit: Brian en Y Gastric Bypass/paraesophageal hernia repair DEMOGRAPHICS: NUTRITION THERAPY Activity: Patient's exercise is: absent/unable Symptoms: Patient's symptoms are as follows; Weight Concerns: failure to lose weight Highest weight: 306 lbs Lowest weight: 130 lbs Previous diet attempts: Self directed, cut out sweets and bread Most weight loss: 61 lbs Motivation for surgery: health improvment Weight loss expectations: 80-100 lbs Pain: Is the patient having any pain that is interfering with oral/enteral intake? No 0 on a scale of 0 to 10 Diet History: Do you typically skip meals? Yes, Breakfast and Lunch How often do you eat deep fried foods (chips, Canadian fries, fried meats, etc) Occasionally (3 - 4 times per week) How often do you eat sweets (cakes, cookies, candy, ice cream, pie) Never I've cut them out Breakfast - skips, weekend cereal and milk Snack - none Lunch - none Snack - none Dinner - hamburger on but or hot dog and tator tots Snack - popcorn Fluids - 1-2 cans soda/day Allergies: Morphine No Food Allergy Medications: Current Outpatient Prescriptions: levothyroxine (SYNTHROID) 75 mcg tablet Take 75 mcg by mouth daily before breakfast. Disp: Rfl: furosemide (LASIX) 20 mg tablet Take 20 mg by mouth once daily. Disp: Rfl: potassium chloride (K-TAB) 10 mEq tablet Take 10 mEq by mouth twice daily. Disp: Rfl: acetaminophen (TYLENOL) 325 mg tablet Take 2 tablets by mouth every 4 hours as needed for up to 1 dose. Disp: 30 tablet Rfl: 3 clonazePAM (KLONOPIN) 1 mg tablet Take 1 tablet by mouth three times daily as needed (anxiety). Disp: 30 tablet Rfl: 3 fluticasone-salmeterol (ADVAIR) 100-50 mcg/dose dsdv Inhale 1 Puff as instructed twice daily. Disp: 3 Inhaler Rfl: 3 PARoxetine (PAXIL) 10 mg tablet Take 1 tablet by mouth once daily. Disp: 30 tablet Rfl: 3 hydrocortisone (ANUSOL-HC) 2.5 % rectal cream Apply rectally to affected area every 3 to 4 hours. Disp: 5 Tube Rfl: 3 omeprazole 20 mg capsule Take 20 mg by mouth twice daily. Disp: Rfl: meclizine 25 mg Tab Take 25 mg by mouth every 6 hours as needed. Disp: Rfl: albuterol 90 mcg/actuation Aero Inhale 1-2 Puffs as instructed four times daily as needed (Wheezing and shortness of Breath). Disp: 1 Inhaler Rfl: 0 No current facility-administered medications for this visit. (currently taking) ; ANTHROPOMETRICS Height: Last 1 Encounter Ht Readings: Date: Ht: 12/28/2017 157.5 cm (5' 2.01) Current weight: Last 1 Encounter Wt Readings: Date: Wt: 12/28/2017 109.3 kg (241 lb) Body mass index is 44.07 kg/(m2). Resting Metabolic Rate: 1575 READINESS TO LEARN Cognitive ability: Alert and oriented Motivation to learn: Eager Family support: High - Very involved in pt care Instruction provided to: Patient Patient learns best by: Individual Instruction Written Instruction - Hand-outs Verbal Instruction Factors affecting learning: None Physical limitations affecting learning: None EDUCATIONAL MATERIALS: Your Guide to Bariatric Surgery NUTRITION ASSESSMENT: Malnutrition Screening Significant unintentional weight loss? No Eating less than 75% of usual intake for more than 2 weeks? No RECOMMENDED MALNUTRITION DIAGNOSIS: NO MALNUTRITION IDENTIFIED Nutritional status: No Malnutrition Identified Height and weight taken today. Presents with interest to pursue Brian en Y Gastric Bypass with BMI of 44 kg/m2. Significant medical comorbidities include *paraesphageal hernia repair. . Patient has high weight loss expectations, anticipating weight loss of 80-100 pounds following surgery (previously desired 110-120 pound loss, but after I talked to the other lady (Dr. Vidhya Mars), I changed my mind). . Patient has very limited understanding of weight loss surgery and nutritional implications following surgery. No previous diet attempt outside of self directed jackie loss. Weight history significant for intentional weight loss since I saw the surgeon - resulting in 21 pounds. Diet recall indicates patient eats one meal per day, lacking fruit/vegetables and complex sources of carbohydrate. . Bernie body weight is 125 lbs. Excess body weight is 137 lbs. (262 lbs at initial assessment with Dr. Bell) Goal weight pre-op is 248 lbs. Protein needs are estimated at 68 - 85 grams protein/day (1.2 - 1.5 g protein/56.8 kg IBW) Patient meets the National Institutes of Health guidelines for weight loss surgery. However, patient needs to demonstrate consistent effort in making dietary changes before giving clearance. It is anticipated that the patient will need at least 1-2 nutritional follow-up visits prior to clearance for surgery. Nutrition Diagnosis: Overweight Obesity, related to; disordered eating pattern, food/nutrition - related knowledge deficit and physical inactivity, as evidenced by BMI above normative standard for age and gender, infrequent, low-duration and/or low-intensity physical activity, uncertainty regarding nutrition-related recommendations and inablitlity to maintain weight . Nutrition Intervention: Comprehensive Nutrition Education 1. Start the partial liquid protein plan as outlined below - do not skip meals Breakfast: Protein shake and fruit Lunch: Protein shake and fruit Dinner: 4 oz lean meat/fish, vegetables, fruit and up to 1c starch/whole grains Snack: < 150 calories 1x per day (should contain protein) 2. Fluids: Transition to water as your main beverage. Stop all soda intake now. Goal for fluids: 64 oz per day no carbonation, no caffeine, no calories, no calories 3. Exercise - start slowly. Increase as tolerated. Exercise from a sitting position (DVD guided) such as [employer] process trainer (at local [employer]) 20-25 minutes/session 4. Read Nutritional Guidelines Section of Your Guide to Surgery by next session Goal weight pre-op is 248 lbs - surpassed Protein needs are estimated at 68 - 85 grams protein/day (1.2 - 1.5 g protein/56.8 kg IBW) Nutrition Monitoring AND Evaluation: 1-2 # weight loss per week prior to surgery Criteria: weight check Need for Follow up: 1 month - coordinate with other appointments Referred/Supervised by: Arabella/Arabella KINGSTON Billing Type: Group /30; 2 increments 60 minutes SIGNATURE: Kayla Henry RD PATIENT NAME: Noreen Ingram DATE: December 28, 2017 TIME: 9:55 AM PAGER: [phone] Primary Visit Diagnosis:Morbid obesity with BMI of 40.0-44.9, adult (HCC) [E66.01, Z68.41] Other Visit Diagnosis:Dietary counseling and surveillance [Z71.3] During your visit today, we recorded the following information about you: Weight Height 109.3 kg 1.575 m Allergies As of Date: 12/28/2017 Noted Allergy Reaction MORPHINE 11/19/2015 14 - Other: See Comments Comments: Severe hypotension Date Reviewed: 12/28/2017 Reviewed by: Kayla (Rd) Kishan - Fully Assessed Prescriptions as of 12/28/2017 Sig: LEVOTHYROXINE 75 MCG TABLET Take 75 mcg by mouth daily be* FUROSEMIDE 20 MG TABLET Take 20 mg by mouth once antonietta* POTASSIUM CHLORIDE ER 10 MEQ * Take 10 mEq by mouth twice da* ACETAMINOPHEN 325 MG TABLET Take 2 tablets by mouth every* CLONAZEPAM 1 MG TABLET Take 1 tablet by mouth three * FLUTICASONE 100 MCG-SALMETERO* Inhale 1 Puff as instructed t* PAROXETINE 10 MG TABLET Take 1 tablet by mouth once d* HYDROCORTISONE 2.5 % TOPICAL * Apply rectally to affected ar* OMEPRAZOLE 20 MG CAPSULE,RADHA* Take 20 mg by mouth twice andrey* MECLIZINE 25 MG TABLET Take 25 mg by mouth every 6 h* ALBUTEROL 90 MCG/ACTUATION AE* Inhale 1-2 Puffs as instructe* Letter Text Bariatric and Metabolic [place] [place] [address] [place], [place] [address] December 28, 2017 Noreen Ingram [address] [place], [place] [id number] [facility] Ms. Ingram, Thank you for attending the [facility] today. Your nutrition clearance for surgery will be dependent on attaining knowledge of the Brian en Y Gastric Bypass Surgery and meeting the meal plan and exercise plan outlined below: 1. Start the partial liquid protein plan as outlined below - do not skip meals Breakfast: Protein shake and fruit Lunch: Protein shake and fruit Dinner: 4 oz lean meat/fish, vegetables, fruit and up to 1c starch/whole grains Snack: < 150 calories 1x per day (should contain protein) 2. Fluids: Transition to water as your main beverage. Stop all soda intake now. Goal for fluids: 64 oz per day no carbonation, no caffeine, no calories, no calories 3. Exercise - start slowly. Increase as tolerated. Exercise from a sitting position (DVD guided) such as [employer] trainer (at local [facility]) 20-25 minutes/session 4. Read Nutritional Guidelines Section of Your Guide to Surgery by next session Goal weight pre-op is 248 lbs - surpassed (you have lost weight since your initial appointment with Dr. Ellsworth) Protein needs are estimated at 68 - 85 grams protein/day (1.2 - 1.5 g protein/56.8 kg IBW) Nutrition Monitoring AND Evaluation: 1-2 # weight loss per week prior to surgery Criteria: weight check Need for Follow up: 1 month - coordinate with other appointments Kayla Henry RD Encounter Status:Closed by KAYLA HENRY on 12/28/17 PROGRESS Observed: 12/28/2017 Status: COMPLETED Source: [place] 1:38 PM [facility] REPOSITORY [facility] ID: [id number] Author: Vidhya Mars Service: (none) Author Type: Physician Type: Progress Notes Filed: 12/28/2017 2:44 PM Note Text: [facility] [place] PSYCHOLOGICAL TEST REPORT PATIENT: Noreen Ingram ( ) TEST ADMINISTERED: [place] Multiphasic Personality Inventory-2 Restructured Form (MMPI2-RF) Binge Eating Questionnaire (BEQ) DATE: ADMINISTERED: December 28, 2017 DATE REVIEWED: December 28, 2017 TIME REVIEWED (start/stop): 1:35 PM - 2:15 PM SORAIDA Mars, CPT#: 15534.59 computer administration of test. 42896 (1 unit) The patient completed the MMPI2-RF in the Bariatric and Metabolic [place] and was proctored by trained personnel. The writer producer was available for help with the testing and completed the subsequent interpretation and summary. Test completion took the patient approximately 35 minutes and the psychologist interpretation and report writing took an additional 35 minutes. BACKGROUND INFORMATION: Ms. Ingram is a 67 year old female seeking bariatric surgery referred by Surgery. She completed the MMPI2-RF and BEQ as part of a comprehensive evaluation. TEST RESULTS: Validity and Interpretation She verbalized an understanding of the purposes of the assessment. Ms. Ingram responded to MMPI2-RF test items with cooperation and openness. The resulting test protocol is valid and interpretable. Overall Functioning Based on her score profile, pt?s overall functioning generally reflects an average level of emotional adjustment (LUIS = 39-64), no clinically significant thought dysfunction (THD < 65), and an above average level of behavioral constraint (BXD < 39). Specific Problem and Strength Areas Specifically, the patient profile reflects multiple somatic complaints that may include head pain and neurological and gastrointestinal symptoms (RC1 65-79)., Individuals with a similar profile present as preoccupied with multiple somatic complaints and fatigue. Their somatic concerns often involve a psychological component, and they are also prone to developing physical symptoms in response to stress. This is consistent with her self-report and medical history. Patient profile also reflects a lack of positive emotional experiences, significant anhedonia, and lack of interest (RC2 >= 65)., Such individuals are often pessimistic, socially introverted, and socially disengaged. They lack energy and display vegetative symptoms of depression (RC2>=65). She noted introversion as well as panic disorder. In addition, patient with a below-average level of activation and engagement with patient's environment (RC9 < 39)., Such individuals often exhibit a very low energy level and disengagement from their environment (RC9<35). The resulting profile does not highlight specific areas of strength. The patient reports experiencing poor health and feeling weak or tired (T=65-79). Such individuals are preoccupied with poor health and likely to complain of sleep disturbance, fatigue, low energy, and sexual dysfunction., The patient reports a number of gastrointestinal complaints (T=65- 89)., Such individuals often have a history of gastrointestinal problems and are preoccupied with health concerns. , The patient reports vague neurological complaints (T=65-91)., Such individuals tend to be preoccupied with physical health concerns. They may present with multiple somatic complaints and be more prone to developing physical symptoms in response to stress. The patient reports feeling hopeless and pessimistic (T65- 79)., Such individuals often feel overwhelmed by life and feel as if they are getting a raw deal from life., of note she endorsed: It bothers me greatly to think of making changes in my life. My main goals in life are within my reach. I recognize several faults in myself that I will not be able to change. There are no indications of externalizing dysfunction in this protocol., The patient reports a below-average level of aggressive behavior (T<39). Interpersonal Functioning The patient reports being shy, easily embarrassed, and uncomfortable around others (T>=65). Interests The patient's low interest in both artistic and mechanical activities may suggest anhedonia. Personality The patient reports being interpersonally passive and submissive. Such individuals tend to be passive and submissive in interpersonal relationships. and The patient reports overly constrained behavior. Diagnositic Considerations Ms. Ingram's test results indicate the following possible diagnoses for further consideration: Depression-related disorder Social phobia Somatoform disorder, if physical origin of somatic complaints has been ruled out Treatment Considerations Explore origin of gastrointestinal complaints, neurological complaints Explore need for antidepressant medication should be evaluated. Likely to reject psychological interpretations of somatic complaints Low positive emotionality may interfere with engagement in treatment Malaise may impede willingness or ability to engage in treatment Possible Targets for Treatment: Anhedonia Anxiety in social situations Loss of hope and feelings of despair as early targets for intervention Stress reduction for gastrointestinal complaints if stress-related Pt reported <18 = Minimal binge eating on a measure of binge eating behaviors. BEQ = 6 IMPRESSIONS: The above test results are fairly consistent with pt's presentation during clinical interview. Based on the information gathered through the interview and testing process: 1. Diagnostic considerations include Psychological Factors related to Morbid Obesity and Panic Disorder without Agoraphobia. 2. The patient evidences panic disorder at this time and needs further treatment to stabilize this issue (additional coping skill development). The patient reported a history of tobacco use/dependence but has been tobacco free for 50 years. The patient denies current substance abuse and does not evidence a history of substance abuse or dependence. The patient does not meet criteria for an eating disorder at this time. Pt described the following maladaptive behavioral pattern: skipping meals. ? TREATMENT PLAN AND RECOMMENDATIONS: 1) The following items are needed to complete the psychological evaluation: *documentation from current primary care physician regarding mental health management *Get Set group attendance and INDIVIDUAL F PSYCHOLOGY APPOINTMENT AFTER COMPLETION OF GROUP (To schedule with [facility] Get Set group call [phone]) ? Patient is unwilling to proceed if this requires additional visit. Thought would be done today. Discussed with patient the importance of sufficient preparation. Patient somewhat unwilling to attend follow-up visits after surgery as well. Given severe knowledge deficits, patient can not be cleared today per her request ? 2) The patient may benefit from the following during the surgery process: *ongoing psychotropic medication management by Primary Care Physician *brief psychotherapy to address anxiety *participation in a Weight Loss Surgery support group *Read Preparing for Weight Loss Surgery: Workbook (Treatments That Work) by Josse Shannon, Kenrick Cano, and Angelia Zhang ([employer], 2006) *implement exercise program such as warm water aerobics, walking, or exercise that can be done from a chair *Follow up with psychology as an inpatient if needed *Follow up with psychology at 1, 3, 6, and 12 months postsurgery *Do not use alcohol, tobacco, and street drugs for 3 to 6 months prior to and after surgery. 3) Insurance letter not completed at this time. Patient needs to complete additional preparation as outlined above. 4) Above recommendations and treatment plan will be communicated back to the referring physician by way of the shared medical record. The above results were discussed verbally with the patient in session in lieu of providing a written copy of the test results. The patient can request a written copy through [employer]. This report is not intended for forensic purposes. Vidhya Mars, Ph.D. Psychologist PROGRESS Observed: 12/28/2017 Status: COMPLETED Source: [place] 11:09 AM [facility] REPOSITORY O ID: [id number] Author: Vidhya Mars Service: (none) Author Type: Physician Type: Progress Notes Filed: 12/28/2017 12:43 PM Note Text: [facility] BARIATRIC SURGERY BEHAVIORAL HEALTH EVALUATION DATE OF SERVICE: 12/28/2017 TIME OF SERVICE: 11:10 AM - 12:10 PM [facility]ST C[facility]: [facility] CPT CODE: 70920 Psychiatric diagnostic evaluation BILLING CODE: ENDO PSYL MAIN SORAIDA/Jerad DATE OF FIRST SERVICE THIS CYCLE: 12/28/2017 SESSION #: 1 The patient signed the Informed Consent for Psychological Evaluation AND Care Form, and the behavioral health care insurance benefits, fees for service, emergency procedures, and the limits of confidentiality that may pertain with any given case were discussed with the patient. Ms. Ingram was given a copy of the consent form. IDENTIFYING INFORMATION: Ms. Noreen Ingram is a 67 year old female. She was referred by Dr. Bell. Ms. Ingram is seeking unsure surgery for morbid obesity. COLLATERAL PARTIES PRESENT: The patient has acknowledged understanding the purpose and/or need for the third libertarian to be present and the circumstances and extent to which confidential information may be disclosed to the third libertarian,, The third libertarian verbalizes understanding that they are not a patient, there is no expectation of confidentiality between the provider and the third libertarian, and the third libertarian does not have rights to access any part of the patient's file without written authorization from the patient. Patient's sister attended because she's my memory. MOTIVATION FOR SURGERY / UNDERSTANDING OF PROCEDURE / EXPECTATIONS: Ms. Ingram notes she is motivated for surgery by need for a hiatal hernia repair and surgeon recommended doing at the same time. Upon reading note the surgeon had recommended RYGB but she noted no understanding of surgery or risk. Patient had previously been rejected by other surgeons due to blood disorders. The patient has a poor understanding of the surgery, risks, and benefits. She has not talked with other people who have undergone the procedure. Specific areas of understanding that should be addressed include nutrition after surgery, risks associated with surgery and knowledge regarding surgical procedure. The patient has not attended a weight loss surgery support group. The patient expects to lose 110 lbs. following surgery over ? months. Has lost 61 lbs since hernia. Somewhat resistant to realistic expectations. Other expectations include improvement in health and eat without getting sick. Less SOB, improved asthma. Educated patient regarding expected weight loss after surgical procedure and timeline of weight loss/surgery recovery. CAPACITY TO CONSENT: Ms. Ingram evidences the following concerns regarding capacity to consent: I don't remember things so good; occurred in the last 6 months. RICK COGNITIVE ASSESSMENT (MOCA) Visuospatial/Executive: - Letter/Number Mappin/1 - Copy Cube: 0/1 - Draw Clock (Ten Past Eleven): - Clock Contour 10/19 - Clock Numbers 10/19 - Clock Hands 10/19 Naming: - Lion 10/19 - Rhino 10/19 - Camel 10/19 Memory: Read list of words and subject must repeat them. Do 2 trials even if 1st trial is successful. There is no scoring for this part of the assessment. - Face, Velvet, Yazidi, Michela, Red Attention: - Repeat in forward order 2, 1, 8, 5, 4 / - Repeat in backward order 7, 4, 2 10/19 - Read list, subject to tap for A's (zero for >/= to 2 errors) - F B A C M N A A J K L B A F A K D E A A A J A M O F A A B 10/19 - Serial Sevens, 93, 86, 79, 72, 65 - 4-5 correct=3points 2-3 correct=2 points 1 correct = 1 point 2/3 Language: - Repeat: I only know that Marvin is the one to help today - Repeat: The cat always hid under the couch when the dogs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 within my reach.ANDquot; ANDquot;I recognize several faults in myself that I will not be able to change.ANDquot; There are no indications of externalizing dysfunction in this protocol., The patient reports a below-average level of aggressive behavior (TANDlt;39). Interpersonal Functioning The patient reports being shy, easily embarrassed, and uncomfortable around others (TANDgt;=65). Interests The patient's low interest in both artistic and mechanical activities may suggest anhedonia. Personality The patient reports being interpersonally passive and submissive. Such individuals tend to be passive and submissive in interpersonal relationships. and The patient reports overly constrained behavior. Diagnositic Considerations Ms. Ingram's test results indicate the following possible diagnoses for further consideration: Depression-related disorder Social phobia Somatoform disorder, if physical origin of somatic complaints has been ruled out Treatment Considerations Explore origin of gastrointestinal complaints, neurological complaints Explore need for antidepressant medication should be evaluated. Likely to reject psychological interpretations of somatic complaints Low positive emotionality may interfere with engagement in treatment Malaise may impede willingness or ability to engage in treatment Possible Targets for Treatment: Anhedonia Anxiety in social situations Loss of hope and feelings of despair as early targets for intervention Stress reduction for gastrointestinal complaints if stress-related Pt reported ANDlt;18 = Minimal binge eating on a measure of binge eating behaviors. BEQ = 6 IMPRESSIONS: The above test results are fairly consistent with pt's presentation during clinical interview. Based on the information gathered through the interview and testing process: 1. Diagnostic considerations include Psychological Factors related to Morbid Obesity and Panic Disorder without Agoraphobia. 2. The patient evidences panic disorder at this time and needs further treatment to stabilize this issue (additional coping skill development). The patient reported a history of tobacco use/dependence but has been tobacco free for 50 years. The patient denies current substance abuse and does not evidence a history of substance abuse or dependence. The patient does not meet criteria for an eating disorder at this time. Pt described the following maladaptive behavioral pattern: skipping meals. ? TREATMENT PLAN AND RECOMMENDATIONS: 1) The following items are needed to complete the psychological evaluation: *documentation from current primary care physician regarding mental health management *Get Set group attendance and INDIVIDUAL [facility] PSYCHOLOGY APPOINTMENT AFTER COMPLETION OF GROUP (To schedule with [facility] Get Set group call [phone]) ? Patient is unwilling to proceed if this requires additional visit. Thought would be done today. Discussed with patient the importance of sufficient preparation. Patient somewhat unwilling to attend follow- up visits after surgery as well. Given severe knowledge deficits, patient can not be cleared today per her request ? 2) The patient may benefit from the following during the surgery process: *ongoing psychotropic medication management by Primary Care Physician *brief psychotherapy to address anxiety *participation in a Weight Loss Surgery support group *Read ANDquot;Preparing for Weight Loss Surgery: Workbook (Treatments That Work)ANDquot; by Josse Shannon, Kenrick Cano, and Angelia Zhang ([employer], 2006) *implement exercise program such as warm water aerobics, walking, or exercise that can be done from a chair *Follow up with psychology as an inpatient if needed *Follow up with psychology at 1, 3, 6, and 12 months postsurgery *Do not use alcohol, tobacco, and street drugs for 3 to 6 months prior to and after surgery. 3) Insurance letter not completed at this time. Patient needs to complete additional preparation as outlined above. 4) Above recommendations and treatment plan will be communicated back to the referring physician by way of the shared medical record. The above results were discussed verbally with the patient in session in lieu of providing a written copy of the test results. The patient can request a written copy through [employer]. This report is not intended for forensic purposes. Vidhya Mars, Ph.D. Psychologist Referring Provider: SCOUT BELL [[id number]] Allergies As of Date: 12/28/2017 Noted Allergy Reaction MORPHINE 11/19/2015 14 - Other: See Comments Comments: Severe hypotension Date Reviewed: 12/28/2017 Reviewed by: Srinivas Louie Ma - Fully Assessed Primary Visit Diagnosis:Panic disorder without agoraphobia [F41.0] Other Visit Diagnosis:Psychological factors affecting morbid obesity (HCC) [E66.01, F54] Prescriptions as of 12/28/2017 Sig: LEVOTHYROXINE 75 MCG TABLET Take 75 mcg by mouth daily be* FUROSEMIDE 20 MG TABLET Take 20 mg by mouth once antonietta* POTASSIUM CHLORIDE ER 10 MEQ * Take 10 mEq by mouth twice da* ACETAMINOPHEN 325 MG TABLET Take 2 tablets by mouth every* CLONAZEPAM 1 MG TABLET Take 1 tablet by mouth three * FLUTICASONE 100 MCG-SALMETERO* Inhale 1 Puff as instructed t* PAROXETINE 10 MG TABLET Take 1 tablet by mouth once d* HYDROCORTISONE 2.5 % TOPICAL * Apply rectally to affected ar* OMEPRAZOLE 20 MG CAPSULE,RADHA* Take 20 mg by mouth twice andrey* MECLIZINE 25 MG TABLET Take 25 mg by mouth every 6 h* ALBUTEROL 90 MCG/ACTUATION AE* Inhale 1-2 Puffs as instructe* Problem List As Of Date 12/28/2017 Noted Resolved Anemia [D64.9] More... Shortness of breath [R06.02] INVALID FOR* More... KAY (iron deficiency anemia) [D50.9] INVALID FOR* Iron malabsorption [K90.9] INVALID FOR* Megaloblastic anemia due to vitamin B12 deficie*INVALID FOR* Paraesophageal hernia [K44.9] INVALID FOR* Mild persistent asthma without complication [J4*INVALID FOR* Hypothyroidism [E03.9] INVALID FOR* Encounter Status:Closed by VIDHYA MARS PHD on 12/28/17 PROGRESS Observed: 12/28/2017 Status: COMPLETED Source: [place] 9:52 AM [facility] REPOSITORY O ID: [id number] Author: Kayla Henry Service: (none) Author Type: Registered Dietitian Type: Progress Notes Filed: 12/28/2017 5:06 PM Note Text: [facility] SYSTEM Nutritional Initial Assessment Patient states reason for visit: Brian en Y Gastric Bypass/paraesophageal hernia repair DEMOGRAPHICS: NUTRITION THERAPY Activity: Patient's exercise is: absent/unable Symptoms: Patient's symptoms are as follows; Weight Concerns: failure to lose weight Highest weight: 306 lbs Lowest weight: 130 lbs Previous diet attempts: Self directed, cut out sweets and bread Most weight loss: 61 lbs Motivation for surgery: health improvment Weight loss expectations: 80-100 lbs Pain: Is the patient having any pain that is interfering with oral/enteral intake? No 0 on a scale of 0 to 10 Diet History: Do you typically skip meals? Yes, Breakfast and Lunch How often do you eat deep fried foods (chips, Canadian fries, fried meats, etc) Occasionally (3 - 4 times per week) How often do you eat sweets (cakes, cookies, candy, ice cream, pie) Never I've cut them out Breakfast - skips, weekend cereal and milk Snack - none Lunch - none Snack - none Dinner - hamburger on but or hot dog and tator tots Snack - popcorn Fluids - 1-2 cans soda/day Allergies: Morphine No Food Allergy Medications: Current Outpatient Prescriptions: levothyroxine (SYNTHROID) 75 mcg tablet Take 75 mcg by mouth daily before breakfast. Disp: Rfl: furosemide (LASIX) 20 mg tablet Take 20 mg by mouth once daily. Disp: Rfl: potassium chloride (K-TAB) 10 mEq tablet Take 10 mEq by mouth twice daily. Disp: Rfl: acetaminophen (TYLENOL) 325 mg tablet Take 2 tablets by mouth every 4 hours as needed for up to 1 dose. Disp: 30 tablet Rfl: 3 clonazePAM (KLONOPIN) 1 mg tablet Take 1 tablet by mouth three times daily as needed (anxiety). Disp: 30 tablet Rfl: 3 fluticasone-salmeterol (ADVAIR) 100-50 mcg/dose dsdv Inhale 1 Puff as instructed twice daily. Disp: 3 Inhaler Rfl: 3 PARoxetine (PAXIL) 10 mg tablet Take 1 tablet by mouth once daily. Disp: 30 tablet Rfl: 3 hydrocortisone (ANUSOL-HC) 2.5 % rectal cream Apply rectally to affected area every 3 to 4 hours. Disp: 5 Tube Rfl: 3 omeprazole 20 mg capsule Take 20 mg by mouth twice daily. Disp: Rfl: meclizine 25 mg Tab Take 25 mg by mouth every 6 hours as needed. Disp: Rfl: albuterol 90 mcg/actuation Aero Inhale 1-2 Puffs as instructed four times daily as needed (Wheezing and shortness of Breath). Disp: 1 Inhaler Rfl: 0 No current facility-administered medications for this visit. (currently taking) ; ANTHROPOMETRICS Height: Last 1 Encounter Ht Readings: Date: Ht: 12/28/2017 157.5 cm (5' 2.01) Current weight: Last 1 Encounter Wt Readings: Date: Wt: 12/28/2017 109.3 kg (241 lb) Body mass index is 44.07 kg/(m2). Resting Metabolic Rate: 1575 READINESS TO LEARN Cognitive ability: Alert and oriented Motivation to learn: Eager Family support: High - Very involved in pt care Instruction provided to: Patient Patient learns best by: Individual Instruction Written Instruction - Hand-outs Verbal Instruction Factors affecting learning: None Physical limitations affecting learning: None EDUCATIONAL MATERIALS: Your Guide to Bariatric Surgery NUTRITION ASSESSMENT: Malnutrition Screening Significant unintentional weight loss? No Eating less than 75% of usual intake for more than 2 weeks? No RECOMMENDED MALNUTRITION DIAGNOSIS: NO MALNUTRITION IDENTIFIED Nutritional status: No Malnutrition Identified Height and weight taken today. Presents with interest to pursue Brian en Y Gastric Bypass with BMI of 44 kg/m2. Significant medical comorbidities include *paraesphageal hernia repair. . Patient has high weight loss expectations, anticipating weight loss of 80-100 pounds following surgery (previously desired 110-120 pound loss, but after I talked to the other lady (Dr. Vidhya Mars), I changed my mind). . Patient has very limited understanding of weight loss surgery and nutritional implications following surgery. No previous diet attempt outside of self directed jackie loss. Weight history significant for intentional weight loss since I saw the surgeon - resulting in 21 pounds. Diet recall indicates patient eats one meal per day, lacking fruit/vegetables and complex sources of carbohydrate. . Bernie body weight is 125 lbs. Excess body weight is 137 lbs. (262 lbs at initial assessment with Dr. Bell) Goal weight pre-op is 248 lbs. Protein needs are estimated at 68 - 85 grams protein/day (1.2 - 1.5 g protein/56.8 kg IBW) Patient meets the National Institutes of Health guidelines for weight loss surgery. However, patient needs to demonstrate consistent effort in making dietary changes before giving clearance. It is anticipated that the patient will need at least 1-2 nutritional follow-up visits prior to clearance for surgery. Nutrition Diagnosis: Overweight Obesity, related to; disordered eating pattern, food/nutrition - related knowledge deficit and physical inactivity, as evidenced by BMI above normative standard for age and gender, infrequent, low-duration and/or low-intensity physical activity, uncertainty regarding nutrition-related recommendations and inablitlity to maintain weight . Nutrition Intervention: Comprehensive Nutrition Education 1. Start the partial liquid protein plan as outlined below - do not skip meals Breakfast: Protein shake and fruit Lunch: Protein shake and fruit Dinner: 4 oz lean meat/fish, vegetables, fruit and up to 1c starch/whole grains Snack: < 150 calories 1x per day (should contain protein) 2. Fluids: Transition to water as your main beverage. Stop all soda intake now. Goal for fluids: 64 oz per day no carbonation, no caffeine, no calories, no calories 3. Exercise - start slowly. Increase as tolerated. Exercise from a sitting position (DVD guided) such as [employer] - [employer] process trainer (at local [employer]) 20-25 minutes/session 4. Read Nutritional Guidelines Section of Your Guide to Surgery by next session Goal weight pre-op is 248 lbs - surpassed Protein needs are estimated at 68 - 85 grams protein/day (1.2 - 1.5 g protein/56.8 kg IBW) Nutrition Monitoring AND Evaluation: 1-2 # weight loss per week prior to surgery Criteria: weight check Need for Follow up: 1 month - coordinate with other appointments Referred/Supervised by: Arabella/Arabella KINGSTON Billing Type: Group /30; 2 increments 60 minutes SIGNATURE: Kayla Henry RD PATIENT NAME: Noreen Ingram DATE: December 28, 2017 TIME: 9:55 AM PAGER: [phone] PROGRESS Observed: 12/28/2017 Status: COMPLETED Source: [place] 8:18 AM [facility] REPOSITORY HNO ID: [id number] Author: Josh Willis Service: (none) Author Type: Physician Type: Progress Notes Filed: 12/28/2017 9:06 AM Note Text: SUBJECTIVE: Noreen Ingram is a 67 year old female who presents on December 28, 2017 for surgical evaluation and treatment of obesity. The patient is interested in laparoscopic gastric bypass brian-en-y and has decided to have the procedure with Scout Bell MD. Age at onset - early adult years. Rate of weight gain is described as gradual over years. Family history positive for obesity in the patient?s sister(s). She considers ideal weight to be 130 lbs. Weight at graduation from high school 120 lbs. Weight when 145 lbs, age 25. Maximum weight 306 lbs, 4 months ago. She has been losing weight in the last 4 months as food makes her sick, she is eating once a day. Previous treatments include self-directed dieting and wound care physician consultation. 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 Stress test: yes: when > 5 years ago History of eating disorders: negative Cardiovascular risk factors: hyperlipidemia, obesity and asthma PAST MEDICAL HISTORY Diagnosis Date - Anemia - Arthritis rhuematoid - Hiatal hernia with gastroesophageal reflux disease and esophagitis 01/20/2017 - Hyperlipidemia - Morbid obesity (HCC) - Thyroid disease (hypothyroidism) Asthma, controlled with advair No history of IN, REINA, CHF, COPD, peptic ulcer dx, hypertension, cancer, DVT, PE, CVA, T2DM, gout, kidney stones, CKD and smoking history. Current Outpatient Prescriptions on File Prior to Visit: levothyroxine (SYNTHROID) 75 mcg tablet Take 75 mcg by mouth daily before breakfast. furosemide (LASIX) 20 mg tablet Take 20 mg by mouth once daily. potassium chloride (K-TAB) 10 mEq tablet Take 10 mEq by mouth twice daily. acetaminophen (TYLENOL) 325 mg tablet Take 2 tablets by mouth every 4 hours as needed for up to 1 dose. clonazePAM (KLONOPIN) 1 mg tablet Take 1 tablet by mouth three times daily as needed (anxiety). fluticasone-salmeterol (ADVAIR) 100-50 mcg/dose dsdv Inhale 1 Puff as instructed twice daily. PARoxetine (PAXIL) 10 mg tablet Take 1 tablet by mouth once daily. omeprazole 20 mg capsule Take 20 mg by mouth twice daily. meclizine 25 mg Tab Take 25 mg by mouth every 6 hours as needed. albuterol 90 mcg/actuation Aero Inhale 1-2 Puffs as instructed four times daily as needed (Wheezing and shortness of Breath). hydrocortisone (ANUSOL-HC) 2.5 % rectal cream Apply rectally to affected area every 3 to 4 hours. No current facility-administered medications on file prior to visit. ALLERGIES Allergen Reactions - Morphine Other: See Comments Severe hypotension PAST SURGICAL HISTORY Procedure Laterality Date - APPENDECTOMY HX - CHOLECYSTECTOMY HX - COLONOSCOP W/ OR W/O [facility] SPEC 08/03/12 [place] - COLONOSCOPY W/BX 11/19/2015 - EGD W/O [facility] SPECIMEN W/BX 01/20/2017 - EGD W/O OR W/BRUSH/WASH 11/29/12 [place] - EGD W/O OR W/BRUSH/WASH 03/10/13 EGD Any problems with anesthesia with the above surgeries: slow emergence from anesthesia FAMILY HISTORY Problem Relation Age of Onset - CHF [Other] [OTHER] Mother - suicide [Other] [OTHER] Father - Disc disease [Other] [OTHER] Brother - lupus [Other] [OTHER] Sister hypertension - brain tumor [Other] [OTHER] Maternal Grandmother Social History Marital status: Spouse name: Years of education: Number of children: 3 Occupational History Occupation Employer Comment [employer] Social History Main Topics Smoking status: Never Smoker Smokeless status: Never Used Alcohol use: Yes Comment: occassional wine cooler during summer Drug use: No Sexual activity: Not Currently Other Topics Concern Blood Transfusions No Review Of Systems Skin: negative Respiratory: No history of cough, hemoptysis, recent chest infection, wheezing Cardiovascular: No history of chest pain,palpitation,orthopnea,cynosis,pedel edema Gastrointestinal: No blood in stool, pain with BM, tarry stool, persistent diarrhea or constipation. Has intermittent pain and nausea with most foods. Genitourinary: No burning with urination, blood in urine or incontinence. Some urge incontinence. No change in vaginal discharge, burning, dryness or itching. Hematology/Lymphology Negative for prolonged bleeding, bruising easily or swollen nodes Musculoskeletal: arthritis Psychiatric: negative Endocrine: No history of diabetes,cold intolerance,heat,intolerance,polydypsia, polyuria, and polyphagia. Neuro: No history of headaches, syncope, paralysis, seizures or tremors OBJECTIVE: BP 142/83 (BP Site: Right Arm, BP Position: Sitting, BP Cuff Size: Large Adult) Pulse 96 Ht 157.5 cm (5' 2.01) Wt 109.3 kg (241 lb) LMP 08/26/2017 BMI 44.07 kg/m2 BMI = Body mass index is 44.07 kg/(m2). [id number] ratio = N/A Eyes: Anicteric sclera. Pupils are equally round and reactive to light. Extraocular movements are intact. Neck: Supple, no adenopathy; thyroid symmetric, normal size, no bruits Lungs: Lungs clear to auscultation. No wheezing, rhonchi, rales Heart: RRR without murmur, gallop, or rubs. No ectopy Abdomen: Normal abdominal exam, Abdomen soft, non-tender. Bowel sounds normal. No masses, organomegaly Peripheral pulses: Normal Extremities: No clubbing, cyanosis, or edema. Skin: Skin color, texture, turgor normal, no suspicious rashes or lesions ASSESSMENT/PLAN: 1. Mild persistent asthma without complication - ICD9: 493.90, ICD10: J45.30 (primary diagnosis), controlled with Advair which she is using daily and is currently not having any dyspnea, chest tightness, or cough 2. 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 Morbid obesity (HCC) - ICD9: 278.01, ICD10: E66.01, patient meets the NIH criteria for bariatric surgery and would benefit from the Brian-en-Y gastric bypass given the large paraesophageal hernia that is causing nausea and discomfort with most meals. Reviewed recent sleep study that shows primary snoring with a normal apnea hyponea index in no underlying sleep disorder breathing, snoring, or excessive daytime sleepiness. Reviewed recent chest x-ray that is normal and an echocardiogram that was done in 2016 that shows a grade 1 diastolic dysfunction with normal left ventricular ejection fraction. She also had a normal EKG except for some premature atrial contractions. She will need an updated EKG and the following nutritional labs and screening for diabetes. - CBC + DIFF - HGB A1C - FOLATE SERUM - COMP METABOLIC PANEL - LIPID PANEL BASIC - POTASSIUM BLD - TSH BLD - VITAMIN B1/THIAMINE, WHOLE BLD - ECG COMPLETE W INTERPRETATION - May proceed with bariatric surgery if the baseline ECG normal. No further noninvasive cardiac testing needed as the patient has no intermediate clinical risk factors, (IDDM, renal failure, CHF, CAD, and CVA) and has a normal functional capacity. 4. Vitamin D deficiency - ICD9: 268.9, ICD10: E55.9 - Currently on vitamin D3 50,000 international units weekly - VITAMIN D 25 HYDROXY - PTH INTACT BLD 5. Megaloblastic anemia due to vitamin B12 deficiency - ICD9: 281.1, ICD10: D53.1, receiving B12 injections monthly and has not had an iron transfusion for quite some time - VITAMIN B12 BLOOD - METHYLMALONIC ACID 6. Hypothyroidism, unspecified type - ICD9: 244.9, ICD10: E03.9 - continue current dose of Synthroid 0.075 mg 7. Paraesophageal hernia - ICD9: 553.3, ICD10: K44.9, active gastritis noted in the prepyloric region and a very large sliding paraesophageal hernia on previous EGD January 23, 2017 Josh Willis DO CNOV Observed: 12/28/2017 Status: COMPLETED Source: [place] 8:00 AM [facility] REPOSITORY Office Visit (GENBMI) NOREEN INGRAM ([id number]) 1950 F [facility] Date Time Provider Department 12/28/17 8:00 AM JOSH WILLIS GENBMI During your visit today, we recorded the following information about you: Pulse Blood pressure Weight Height 96/minute 142/83 109.3 kg 1.575 m Srinivas Louie Ma 12/28/2017 8:05 AM Signed Body mass index is 44.07 kg/(m2). Josh Willis DO 12/28/2017 9:06 AM Signed SUBJECTIVE: Noreen Ingram is a 67 year old female who presents on December 28, 2017 for surgical evaluation and treatment of obesity. The patient is interested in laparoscopic gastric bypass brian-en-y and has decided to have the procedure with Scout Bell MD. Age at onset - early adult years. Rate of weight gain is described as gradual over years. Family history positive for obesity in the patient?s sister(s). She considers ideal weight to be 130 lbs. Weight at graduation from high school 120 lbs. Weight when 145 lbs, age 25. Maximum weight 306 lbs, 4 months ago. She has been losing weight in the last 4 months as food makes her sick, she is eating once a day. Previous treatments include self-directed dieting and wound care physician consultation. 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 Stress test: yes: when ANDgt; 5 years ago History of eating disorders: negative Cardiovascular risk factors: hyperlipidemia, obesity and asthma PAST MEDICAL HISTORY Diagnosis Date - Anemia - Arthritis rhuematoid - Hiatal hernia with gastroesophageal reflux disease and esophagitis 01/20/2017 - Hyperlipidemia - Morbid obesity (HCC) - Thyroid disease (hypothyroidism) Asthma, controlled with advair No history of IN, REINA, CHF, COPD, peptic ulcer dx, hypertension, cancer, DVT, PE, CVA, T2DM, gout, kidney stones, CKD and smoking history. Current Outpatient Prescriptions on File Prior to Visit: levothyroxine (SYNTHROID) 75 mcg tablet Take 75 mcg by mouth daily before breakfast. furosemide (LASIX) 20 mg tablet Take 20 mg by mouth once daily. potassium chloride (K-TAB) 10 mEq tablet Take 10 mEq by mouth twice daily. acetaminophen (TYLENOL) 325 mg tablet Take 2 tablets by mouth every 4 hours as needed for up to 1 dose. clonazePAM (KLONOPIN) 1 mg tablet Take 1 tablet by mouth three times daily as needed (anxiety). fluticasone-salmeterol (ADVAIR) 100-50 mcg/dose dsdv Inhale 1 Puff as instructed twice daily. PARoxetine (PAXIL) 10 mg tablet Take 1 tablet by mouth once daily. omeprazole 20 mg capsule Take 20 mg by mouth twice daily. meclizine 25 mg Tab Take 25 mg by mouth every 6 hours as needed. albuterol 90 mcg/actuation Aero Inhale 1-2 Puffs as instructed four times daily as needed (Wheezing and shortness of Breath). hydrocortisone (ANUSOL-HC) 2.5 % rectal cream Apply rectally to affected area every 3 to 4 hours. No current facility-administered medications on file prior to visit. ALLERGIES Allergen Reactions - Morphine Other: See Comments Severe hypotension PAST SURGICAL HISTORY Procedure Laterality Date - APPENDECTOMY HX - CHOLECYSTECTOMY HX - COLONOSCOP W/ OR W/O BRSH SPEC 08/03/12 [facility] - COLONOSCOPY W/BX 11/19/2015 - EGD W/O BRSH SPECIMEN W/BX 01/20/2017 - EGD W/O OR W/BRUSH/WASH 11/29/12 [facility] - EGD W/O OR W/BRUSH/WASH 03/10/13 EGD Any problems with anesthesia with the above surgeries: slow emergence from anesthesia FAMILY HISTORY Problem Relation Age of Onset - CHF [Other] [OTHER] Mother - suicide [Other] [OTHER] Father - Disc disease [Other] [OTHER] Brother - lupus [Other] [OTHER] Sister hypertension - brain tumor [Other] [OTHER] Maternal Grandmother Social History Marital status: Spouse name: Years of education: Number of children: 3 Occupational History 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 Has intermittent pain and nausea with most foods. Genitourinary: No burning with urination, blood in urine or incontinence. Some urge incontinence. No change in vaginal discharge, burning, dryness or itching. Hematology/Lymphology Negative for prolonged bleeding, bruising easily or swollen nodes Musculoskeletal: arthritis Psychiatric: negative Endocrine: No history of diabetes,cold intolerance,heat,intolerance,polydypsia, polyuria, and polyphagia. Neuro: No history of headaches, syncope, paralysis, seizures or tremors OBJECTIVE: BP 142/83 (BP Site: Right Arm, BP Position: Sitting, BP Cuff Size: Large Adult) Pulse 96 Ht 157.5 cm (5' 2.01ANDquot;) Wt 109.3 kg (241 lb) LMP 08/26/2017 BMI 44.07 kg/m2 BMI = Body mass index is 44.07 kg/(m2). Ilmng-dk-fks ratio = N/A Eyes: Anicteric sclera. Pupils are equally round and reactive to light. Extraocular movements are intact. Neck: Supple, no adenopathy; thyroid symmetric, normal size, no bruits Lungs: Lungs clear to auscultation. No wheezing, rhonchi, rales Heart: RRR without murmur, gallop, or rubs. No ectopy Abdomen: Normal abdominal exam, Abdomen soft, non-tender. Bowel sounds normal. No masses, organomegaly Peripheral pulses: Normal Extremities: No clubbing, cyanosis, or edema. Skin: Skin color, texture, turgor normal, no suspicious rashes or lesions ASSESSMENT/PLAN: 1. Mild persistent asthma without complication - ICD9: 493.90, ICD10: J45.30 (primary diagnosis), controlled with Advair which she is using daily and is currently not having any dyspnea, chest tightness, or cough 2. 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 Morbid obesity (HCC) - ICD9: 278.01, ICD10: E66.01, patient meets the NIH criteria for bariatric surgery and would benefit from the Brian-en-Y gastric bypass given the large paraesophageal hernia that is causing nausea and discomfort with most meals. Reviewed recent sleep study that shows primary snoring with a normal apnea hyponea index in no underlying sleep disorder breathing, snoring, or excessive daytime sleepiness. Reviewed recent chest x-ray that is normal and an echocardiogram that was done in 2016 that shows a grade 1 diastolic dysfunction with normal left ventricular ejection fraction. She also had a normal EKG except for some premature atrial contractions. She will need an updated EKG and the following nutritional labs and screening for diabetes. - CBC + DIFF - HGB A1C - FOLATE SERUM - COMP METABOLIC PANEL - LIPID PANEL BASIC - POTASSIUM BLD - TSH BLD - VITAMIN B1/THIAMINE, WHOLE BLD - ECG COMPLETE W INTERPRETATION - May proceed with bariatric surgery if the baseline ECG normal. No further noninvasive cardiac testing needed as the patient has no intermediate clinical risk factors, (IDDM, renal failure, CHF, CAD, and CVA) and has a normal functional capacity. 4. Vitamin D deficiency - ICD9: 268.9, ICD10: E55.9 - Currently on vitamin D3 50,000 international units weekly - VITAMIN D 25 HYDROXY - PTH INTACT BLD 5. Megaloblastic anemia due to vitamin B12 deficiency - ICD9: 281.1, ICD10: D53.1, receiving B12 injections monthly and has not had an iron transfusion for quite some time - VITAMIN B12 BLOOD - METHYLMALONIC ACID 6. Hypothyroidism, unspecified type - ICD9: 244.9, ICD10: E03.9 - continue current dose of Synthroid 0.075 mg 7. Paraesophageal hernia - ICD9: 553.3, ICD10: K44.9, active gastritis noted in the prepyloric region and a very large sliding paraesophageal hernia on previous EGD January 23, 2017 Josh Willis DO Referring Provider: SCOUT BELL [[id number]] Allergies As of Date: 12/28/2017 Noted Allergy Reaction MORPHINE 11/19/2015 14 - Other: See Comments Comments: Severe hypotension Date Reviewed: 12/28/2017 Reviewed by: Srinivas Louie Ma - Fully Assessed Reason for Visit: New Patient [172] Primary Visit Diagnosis:Mild persistent asthma without complication [J45.30] Other Visit Diagnoses:Iron malabsorption [K90.9] Morbid obesity (HCC) [E66.01] Vitamin D deficiency [E55.9] Megaloblastic anemia due to vitamin B12 deficiency [D53.1] Hypothyroidism, unspecified type [E03.9] Paraesophageal hernia [K44.9] Order(s):CBC + DIFF [SQCBCDIF] Order #: [id number] FUTURE HGB A1C [ZZIMY2F] Order #: [id number] FUTURE FOLATE SERUM [SQSERFOL] Order #: [id number] FUTURE IRON + TIBC [SQIRON] Order #: [id number] FUTURE VITAMIN B12 BLOOD [SQB12] Order #: [id number] FUTURE VITAMIN D 25 HYDROXY [SQVITD] Order #: [id number] FUTURE COMP METABOLIC PANEL [SQCMP] Order #: [id number] FUTURE LIPID PANEL BASIC [SQLIPB] Order #: [id number] FUTURE FERRITIN BLD [SQFERR] Order #: [id number] FUTURE POTASSIUM BLD [SQK1] Order #: [id number] FUTURE PTH INTACT BLD [SQPTHI] Order #: [id number] FUTURE TSH BLD [SQTSH] Order #: [id number] FUTURE VITAMIN B1/THIAMINE, WHOLE BLD [DUP0WHH] Order #: [id number] FUTURE METHYLMALONIC ACID [SQMMA] Order #: [id number] FUTURE ECG COMPLETE W INTERPRETATION [ECG01] Order #: [id number] FUTURE Prescriptions as of 12/28/2017 Sig: LEVOTHYROXINE 75 MCG TABLET Take 75 mcg by mouth daily be* FUROSEMIDE 20 MG TABLET Take 20 mg by mouth once antonietta* POTASSIUM CHLORIDE ER 10 MEQ * Take 10 mEq by mouth twice da* ACETAMINOPHEN 325 MG TABLET Take 2 tablets by mouth every* CLONAZEPAM 1 MG TABLET Take 1 tablet by mouth three * FLUTICASONE 100 MCG-SALMETERO* Inhale 1 Puff as instructed t* PAROXETINE 10 MG TABLET Take 1 tablet by mouth once d* OMEPRAZOLE 20 MG CAPSULE,RADHA* Take 20 mg by mouth twice andrey* MECLIZINE 25 MG TABLET Take 25 mg by mouth every 6 h* ALBUTEROL 90 MCG/ACTUATION AE* Inhale 1-2 Puffs as instructe* HYDROCORTISONE 2.5 % TOPICAL * Apply rectally to affected ar* Medication notes this encounter HYDROCORTISONE 2.5 % TOPICAL CREAM WITH PERINEAL APPLICATOR >> Srinivas Louie Ma 12/28/2017 8:05 AM >> SRINIVAS LOUIE MA ThuDec 28, 2017 8:05 AM Not taking Problem List As Of Date 12/28/2017 Noted Resolved Anemia [D64.9] More... Shortness of breath [R06.02] INVALID FOR* More... KAY (iron deficiency anemia) [D50.9] INVALID FOR* Iron malabsorption [K90.9] INVALID FOR* Megaloblastic anemia due to vitamin B12 deficie*INVALID FOR* Paraesophageal hernia [K44.9] INVALID FOR* Mild persistent asthma without complication [J4*INVALID FOR* Hypothyroidism [E03.9] INVALID FOR* Visit Notes: >> Srinivas Louie Ma ThuDec 28, 2017 8:04 AM Status: Signed Body mass index is 44.07 kg/(m2). Encounter Status:Closed by JOSH WILLIS DO on 12/28/17 PROGRESS Observed: 11/21/2017 Status: COMPLETED Source: [place] 3:59 AM [facility] [place] REPOSITORY O ID: [id number] Author: Wm Holman Service: (none) Author Type: (none) Type: Progress Notes Filed: 11/21/2017 4:06 AM Note Text: Sleep Study Check-In Documentation Date: November 21, 2017 Name: Noreen Ingram Patient was accompanied by Self. Location: [place] Latex allergy: No Tape allergy: No Current medications were reviewed with the patient:Yes Sleep aid taken by patient for the sleep study: [place] of sleep aid: Not Applicable Procedure was explained to the patient and all questions were answered. PAP treatment discussed and shown to patient: Yes Knowledge Program (KP): KP was not completed in [facility] by patient and accepted Study type: Polysomnogram Adverse Event: No (If yes create a new abstract) SERS Event: No Comments: Patient was advised to follow up with their ordering provider regarding test results Wm Holman PROGRESS Observed: 11/20/2017 Status: COMPLETED Source: [place] 12:57 AM [facility] REPOSITORY O ID: [id number] Author: Dannielle Holman Service: (none) Author Type: (none) Type: Progress Notes Filed: 11/21/2017 4:06 AM Note Text: November 20, 2017 The medical record was reviewed to determine if the proposed sleep study conforms to the AASM Practice Parameters for the Indications for Polysomnography and Related Procedures, or if the sleep study is indicated for other reasons. Indications for study: REINA suspected with comorbid medical or sleep disorders: Morbid obesity (BMI>40 kg/m2) Sleep study to be performed: Split Study-Polysomnogram with PAP titration Special instructions: Split night study if AHI > 15. Start with 7 cmH2O then titrate per protocol Add EtCO2 or Transcutaneous CO2 if available Please encourage supine sleep and record sleep in the patient's habitual sleep position. Order is for HST bariatric pt. changed to split night. BMI=49.5 Dannielle Holman I have read the above protocol, edited as needed, and agree to the plan Mundo Jim III, PhD, FAA PROGRESS Observed: 11/18/2017 Status: COMPLETED Source: [place] 2:07 PM [facility] REPOSITORY HNO ID: [id number] Author: Simona Luz [employer] Service: (none) Author Type: (none) Type: Progress Notes Filed: 11/21/2017 4:06 AM Note Text: November 18, 2017 An order has been received for Home Sleep Test (HST) from jesus Mitchell. [facility] Staff. Visit prep complete. Comments :No The sleep study is scheduled for 12/01. Insurance: Payor: MMO MEDICARE / Plan: MMO MEDADVANTAGE CHOICE HMO / Product Type: HMO / Simona Luz [facility] Observed: 11/12/2017 Status: COMPLETED Source: [place] 2:00 PM [facility] REPOSITORY Infusion Center (HEMAWS) NOREEN INGRAM ([id number]) 1950 F [facility] Date Time Provider Department 11/12/17 2:00 PM [facility] During your visit today, we recorded the following information about you: Temperature Pulse Blood pressure Weight 97.7 degrees 90/minute 120/77 114.1 kg Anna Vasquez LPN 11/12/2017 1:55 PM Signed Patient presents with: Imm/Inj Pt is identified by name and birthdate: Yes. Allergies and medications reviewed. Latex allergy? No. Does this patient have: Unplanned weight loss or gain of greater than 10 pounds, or a change of appetite over the last year? No Does the patient have any concerns about safety in the home/falls? Not at risk for falls Has the patient fallen in the past year? No Does the patient have difficulty performing or completing routine daily living activities? No Does this patient have concerns about personal safety? No Is patient having pain? Pain: No=0 (pain 0 on a scale of 0-10). Health Maintenance: Reviewed and updated. Does patient have MyChart access or Caregiver proxy: no Pt/Caregiver willingness and readiness to learn assessed: Yes. Barriers: none Vitamin B12 injection administered right deltoid, tolerated well, no immediate adverse reactions noted. Anna Vasquez LPN Referring Provider: IAIN CLIFTON [[id number]] Allergies As of Date: 11/12/2017 Noted Allergy Reaction MORPHINE 11/19/2015 14 - Other: See Comments Comments: Severe hypotension Date Reviewed: 11/12/2017 Reviewed by: Anna Vasquez LPN - Fully Assessed Reason for Visit: Imm/Inj [58] Primary Visit Diagnosis:Megaloblastic anemia due to vitamin B12 deficiency [D53.1] Order(s):[] cyanocobalamin 1,000 mcg injectionDisp: Rfl: Prescriptions as of 11/12/2017 Sig: LEVOTHYROXINE 75 MCG TABLET Take 75 mcg by mouth daily be* FUROSEMIDE 20 MG TABLET Take 20 mg by mouth once antonietta* POTASSIUM CHLORIDE ER 10 MEQ * Take 10 mEq by mouth twice da* ACETAMINOPHEN 325 MG TABLET Take 2 tablets by mouth every* CLONAZEPAM 1 MG TABLET Take 1 tablet by mouth three * FLUTICASONE 100 MCG-SALMETERO* Inhale 1 Puff as instructed t* PAROXETINE 10 MG TABLET Take 1 tablet by mouth once d* HYDROCORTISONE 2.5 % TOPICAL * Apply rectally to affected ar* OMEPRAZOLE 20 MG CAPSULE,RADHA* Take 20 mg by mouth twice andrey* MECLIZINE 25 MG TABLET Take 25 mg by mouth every 6 h* ALBUTEROL 90 MCG/ACTUATION AE* Inhale 1-2 Puffs as instructe* Problem List As Of Date 11/12/2017 Noted Resolved Anemia [D64.9] More... Shortness of breath [R06.02] INVALID FOR* More... KAY (iron deficiency anemia) [D50.9] INVALID FOR* Iron malabsorption [K90.9] INVALID FOR* Megaloblastic anemia due to vitamin B12 deficie*INVALID FOR* Paraesophageal hernia [K44.9] INVALID FOR* Visit Notes: >> Anna Vasquez LPN [place] Nov 12, 2017 1:43 PM Status: Signed Patient presents with: Imm/Inj Pt is identified by name and birthdate: Yes. Allergies and medications reviewed. Latex allergy? No. Does this patient have: Unplanned weight loss or gain of greater than 10 pounds, or a change of appetite over the last year? No Does the patient have any concerns about safety in the home/falls? Not at risk for falls Has the patient fallen in the past year? No Does the patient have difficulty performing or completing routine daily living activities? No Does this patient have concerns about personal safety? No Is patient having pain? Pain: No=0 (pain 0 on a scale of 0-10). Health Maintenance: Reviewed and updated. Does patient have MyChart access or Caregiver proxy: no Pt/Caregiver willingness and readiness to learn assessed: Yes. Barriers: none Vitamin B12 injection administered right deltoid, tolerated well, no immediate adverse reactions noted. Anna Vasquez LPN Prescriptions ordered this encounter Disp Refills Start End CYANOCOBALAMIN (VIT B-12) 1,000 MCG/* 11/12/2017 11/12/2017 Route: INTRAMUSCULA Encounter Status:Closed by ANNA VASQUEZ LPN on 11/12/17 ALLERGIES ALLERGIES DATE TYPE / CODE NAME / CODE REACTION SEVERITY SOURCE 10/01/2018 Drug morphine/[id number] Low blood Unknown [facility] Allergy/416 1545(RXNORM) [facility] [id number](SNOM Repository ED CT) 11/19/2015 DRUG MORPHINE OTHER: SEE [facility] INGREDI/[address] [place] [address] [id number](SNOM Repository ED CT) ENCOUNTERS ENCOUNTERS ADMIT/DISCHARGE ACCOUNT NUMBER ADMITTING ENCOUNTER LOCATION SOURCE CLASS 10/21/2018/10/22/19 [id number] Ambulatory [address] Repository 10/01/2018/10/01/20 [id number] Emergency [address] ding:ED Repository 07/29/2018/07/29/20 [id number] Emergency BBuilding:ER [address] Repository 07/27/2018/07/28/20 [id number] Ambulatory [address] Repository 07/26/2018/07/26/20 [id number] Emergency BBuilding:ER [address] Repository 07/08/2018/07/08/20 [id number] Ambulatory [address] Repository 07/02/2018/07/02/20 [id number] Ambulatory [facility] Wall [address] [place] [address] ding:[facility] Repository 07/01/2018/07/02/20 [id number] Ambulatory [facility] [address] [facility] [place] Repository 06/26/2018/06/26/20 [id number] Emergency BBuilding:[facility]ACE[facility] Repository 06/03/2018/06/04/20 [id number] Ambulatory [facility] [place] Repository 05/19/2018/05/23/20 [id number] MIKAL, Ambulatory [place] 18 [facility] [place] Repository 05/17/2018/05/17/20 [id number] Ambulatory [place] [place] Repository 05/17/2018/05/17/20 [id number] Ambulatory [place] [place] Repository 05/17/2018/05/17/20 [id number] Ambulatory [place] 18 [facility] [place] Repository 05/17/2018/05/17/20 [id number] Ambulatory [place] [place] Repository 05/17/2018/05/17/20 [id number] Ambulatory [place] [place] Repository 05/17/2018/05/17/20 [id number] Ambulatory [place] [place] Repository 04/22/2018/04/22/20 [id number] Ambulatory [place] [place] Repository 04/06/2018/04/08/20 [id number] Ambulatory [place] [place] Repository 03/10/2018/03/11/20 [id number] Ambulatory [place] [place] Repository 02/09/2018/02/11/20 [id number] Ambulatory [place] [place] Repository 01/29/2018/02/03/20 [id number] Ambulatory [place] [place] Repository 01/29/2018/01/30/20 [id number] Ambulatory [place] [place] Repository 01/26/2018/01/27/20 [id number] Ambulatory [place] [place] Repository 01/13/2018/01/14/20 [id number] Emergency BBuilding:LACEY Wall [address] [place] [address] Repository 01/08/2018/01/12/20 [id number] Ambulatory [facility] [place] Repository 12/28/2017/01/01/20 [id number] Ambulatory [facility] [place] Repository 12/28/2017/12/29/19 [id number] Ambulatory [address] [facility] [place] Repository 12/28/2017/01/06/20 [id number] Ambulatory [address] Repository 12/28/2017/01/01/20 [id number] Ambulatory [address] Repository 12/10/2017/12/11/19 [id number] Ambulatory [address] Repository 11/20/2017/12/03/19 [id number] Ambulatory [address] Other [place] Repository 11/12/2017/11/13/19 [id number] Ambulatory [address] Repository PAYERS PAYERS ENCOUNTER GUARANTOR PAYER SUBSCRIBER SOURCE 10/01/2018 NOREEN A Primary Insurance:MMO NOREEN A [place] [id number] MEDICAREPolicy HUFFMANDOB: [facility] David RdLot Number: [id number] [id number] Repository [address]Kqc: [phone]) Date:[id number] [phone] () [address], [place] [address]UU: 10/01/2018 Secondary NOT GIVENUNK [place] Insurance:SELF PAY [facility] Number: Effective Repository Date:2018-10-01 07/29/2018 NOREEN A Primary NOREEN A [facility] HUFFMANDOB: Insurance:MEDICAL HUFFMANDOB: Foundation MUTUAL MEDICAREPolicy [id number] Repository [address] Number: [address] [place] [address] [id number] [place] [address] 95608Esg: [phone] Date:2018-07-29 [address]Tfw: () [id number] [phone] Name:NPO Manju ()Tel: [phone]) [phone], [place] [phone] () 35588XL: 07/26/2018 NOREEN A Primary NOREEN A [facility] HUFFMANDOB: Insurance:MEDICAL HUFFMANDOB: [employer] MUTUAL MEDICAREPolicy [id number] [address] Number: [address] [place] [id number] [place] [address]Hnn: (330) Date:2018-07-26Tel: (WP) [id number] [phone] (WP) Name:[address] [address]Rcpjycbfs, [place] [address]XL: 07/02/2018 NOREEN A [facility]: [facility] HUFFMANDOB: [facility] MUTUAL MEDICAREPolicy [id number] [address] Number: [address] [place] [id number] [place] [address]Dmx: (330) Date:2018-07-0298899Jwy: [id number] [phone] (HP)Tel: ([phone]) Name:[address] (HP) (WP) [address], [place] [phone] (WP) [address]BT: 06/26/2018 CONROE A [facility]: Insurance:MEDICAL HUFFMANDOB: [facility] MUTUAL MEDICAREPolicy [id number] [address] Number: [address] [place] [id number] [place], [place] [address]Xlk: ([phone]) Date:2018-06-2640961Flz: [id number] [phone] (HP)Tel: ([phone]) Name:[address] (HP) (WP) [address]kqsabsrj, [place] [phone] (WP) [address]TC: 01/13/2018 NOREEN A [facility]: Insurance:MEDICAL HUFFMANDOB: [facility] MUTUAL MEDICAREPolicy [id number] Repository [address] Number: [address] [place] [address] [id number] [place] [address]Rau: ([phone]) Date:2018-01-13 51188Mxx: [id number] [phone] ()Tel: [phone]) Name:NAIDAO Manju () () [address]Ifvqgzmnn, [place] [phone] ([place]) [address]VU:
== END 2018-10-01 18:07 | disposition home or self-care (01) ==
PROVIDERS: Emergency Provider Emergency Medicine; Family Provider Internal Medicine; PCP Internal Medicine
DX: S43.401A Unspecified sprain of right shoulder joint, initial encounter (principal); S80.02XA Contusion of left knee, initial encounter; W18.09XA Striking against other object with subsequent fall, initial encounter; Y93.9 Activity, unspecified; J45.909 Unspecified asthma, uncomplicated; I10 Essential (primary) hypertension; Z79.899 Other long term (current) drug therapy
CPT/HCPCS: 73030; 73564; 99283